=== PATIENT | male | born 1960 | race Caucasian/White ===

== ENCOUNTER 2019-04-14 06:43 | Inpatient (IN) | payer OTHER ==
[~2019-04-14] VITALS: Ht 182.9 cm; Wt 96.2 kg
--- OUTSIDE RECORDS SUMMARY | 2019-04-14 06:46 | XMS REPORT | Clinical Summary ---
Author Author [facility] Organization [facility] Address Unknown Phone Unavailable Care Team Providers Care Preventative Maintenance Technician Name Role Phone Martita Moore MD PCP Allergies No Known Allergies Medications End Date Status Medication Sig Dispensed Refills Start Date Active metFORMIN XR TK 2 TS PO 0 (GLUCOPHAGE-XR) 500 mg 24 BID 7 hr tablet 04/29/2018 Discontinued terbinafine HCl (LamiSIL) TK 1 T PO QD 0 250 mg tablet FOR 90 DAYS 7 04/29/2018 Discontinued clopidogrel (PLAVIX) 75 TK 1 T PO QD 0 mg tablet 7 04/29/2018 Discontinued glimepiride (AMARYL) 2 MG TK 1 T PO QD 0 tablet 7 04/29/2018 Discontinued nabumetone (RELAFEN) 500 TK 1 T PO 1 MG tablet BID WF 7 Active Problems No known active problems Encounters Care Team Description Date Type Specialty Mello Pathak MD Unilateral primary osteoarthritis, right knee (Primary Dx) 04/29/2018 Lab Lab Jaziel Arcos MD Pre-operative cardiovascular examination 04/29/2018 Hospital Radiology Encounter Mello Pathak MD Preop testing (Primary Dx) 04/29/2018 Pre-Admit Pre-Admission Testing Testing Appointment Jaziel Arcos MD Pre-operative cardiovascular examination (Primary Dx) 04/29/2018 Transcribe Access Orders after 04/13/2018 Social History Date Tobacco Use Types Packs/Day Years Used Current Every Day Smoker Cigarettes 0.5 Smokeless Tobacco: Never Used Alcohol Use Drinks/Week oz/Week Comments Yes 8 Cans of 4.8 beer Sex Assigned at Date Recorded Not on file Industry Job Start Date Occupation Not on file Not on file Not on file Travel End Travel History Travel Start No recent travel history available. Last Filed Vital Signs Time Taken Vital Sign Reading 04/29/2018 4:44 PM CDT Blood Pressure 161/82 04/29/2018 4:44 PM CDT Pulse 74 04/29/2018 5:01 PM CDT Temperature 36.1 C (97 F) 04/29/2018 4:44 PM CDT Respiratory Rate 18 04/29/2018 4:44 PM CDT Oxygen Saturation 100% - Inhaled Oxygen - Concentration 04/29/2018 4:44 PM CDT Weight 94.3 kg (208 lb) 04/29/2018 4:44 PM CDT Height 182.9 cm (6') 04/29/2018 4:44 PM CDT Body Mass Index 28.21 Plan of Treatment Health Maintenance Due Date Last Done Comments COLONOSCOPY SCREENING 2009 SHINGLES VACCINES (#1) 2009 INFLUENZA VACCINE 04/29/2019 Procedures Comments Procedure Name Priority Date/Time Associated Diagnosis XR CHEST 2 VW Routine 04/29/2018 Pre-operative 5:09 PM CDT cardiovascular examination MRSA SCREEN CULTURE Routine 04/29/2018 Unilateral primary 5:03 PM CDT osteoarthritis, right knee TYPE AND SCREEN Routine 04/29/2018 Preop testing 4:50 PM CDT ZZESTIMATED GFR Routine 04/29/2018 4:36 PM CDT URINALYSIS SCREEN AND Routine 04/29/2018 Preop testing MICROSCOPY, WITH REFLEX 4:36 PM CDT TO CULTURE PROTHROMBIN TIME WITH INR Routine 04/29/2018 Preop testing 4:36 PM CDT PARTIAL THROMBOPLASTIN Routine 04/29/2018 Preop testing TIME (PTT) 4:36 PM CDT COMPREHENSIVE METABOLIC Routine 04/29/2018 Preop testing PANEL 4:36 PM CDT HC COMPLETE BLD COUNT Routine 04/29/2018 Preop testing W/AUTO DIFF 4:36 PM CDT HEMOGLOBIN A1C Routine 04/29/2018 Preop testing 4:36 PM CDT URINE CULTURE Routine 04/29/2018 4:36 PM CDT after 04/13/2018 Results * XR Chest 2 Vw (04/29/2018 5:09 PM CDT) Specimen Narrative Performed At EXAMINATION:XR CHEST 2 VW [facility] CLINICAL HISTORY:Z01.810 Encounter for preprocedural cardiovascular examination, z01.810 COMPARISON:To a previous examination from 11/06/2016 IMPRESSION: Heart is normal in appearance and the lungs are hyper inflated, and clear. [facility]-[id number] Procedure Note Interface, Radiology Results Incoming - 04/29/2018 5:19 PM CDT EXAMINATION: XR CHEST 2 VW CLINICAL HISTORY: Z01.810 Encounter for preprocedural cardiovascular examination, z01.810 COMPARISON: To a previous examination from 11/06/2016 IMPRESSION: Heart is normal in appearance and the lungs are hyper inflated, and clear. [facility]-[id number] Performing Organization Address City/[facility]/Zipcode Phone Number [facility] [address] [place] [phone] * MRSA screen culture (04/29/2018 5:03 PM CDT) Pathologist [facility] MRSA screen No Methicillin Resistant [facility] DEPARTMENT culture isolate Staphylococcus aureus OF PATHOLOGY isolated. AND GENOMIC Comment: MEDICINE Specimen Information Specimen Source: Nares Specimen Site: Not specified Specimen Nares - Not specified Performing Organization Address City/[facility]/Zipcode Phone Number [facility] [place] [address] PATHOLOGY AND GENOMIC MEDICINE * Type and screen (04/29/2018 4:50 PM CDT) ABO grouping O [facility] DEPARTMENT OF PATHOLOGY AND GENOMIC MEDICINE Rh type POS [facility] DEPARTMENT OF PATHOLOGY AND GENOMIC MEDICINE Antibody screen NEG [facility] DEPARTMENT (gel) OF PATHOLOGY AND GENOMIC MEDICINE Specimen Blood Performing Organization Address City/[facility]/Zipcode Phone Number [facility] [place] [address] PATHOLOGY AND GENOMIC MEDICINE * Urinalysis screen and microscopy, with reflex to culture (04/29/2018 4:36 PM CDT) Specimen site Clean catch [facility] DEPARTMENT OF PATHOLOGY AND GENOMIC MEDICINE Color, UA Straw [facility] DEPARTMENT OF PATHOLOGY AND GENOMIC MEDICINE Appearance, UA Clear [facility] DEPARTMENT OF PATHOLOGY AND GENOMIC MEDICINE Specific 1.032 1.001 - 1.035 [facility] DEPARTMENT gravity, UA OF PATHOLOGY AND GENOMIC MEDICINE pH, UA 6.0 5.0 - 8.5 [facility] DEPARTMENT OF PATHOLOGY AND GENOMIC MEDICINE Protein, UA Negative Negative [facility] DEPARTMENT OF PATHOLOGY AND GENOMIC MEDICINE Glucose, UA 3+ (A) Negative [facility] DEPARTMENT OF PATHOLOGY AND GENOMIC MEDICINE Ketones, UA Negative Negative [facility] DEPARTMENT OF PATHOLOGY AND GENOMIC MEDICINE Bilirubin, UA Negative Negative [facility] DEPARTMENT OF PATHOLOGY AND GENOMIC MEDICINE Blood, UA Negative Negative [facility] DEPARTMENT OF PATHOLOGY AND GENOMIC MEDICINE Nitrite, UA Negative Negative [facility] DEPARTMENT OF PATHOLOGY AND GENOMIC MEDICINE Urobilinogen, <2.0 <2.0 [facility] DEPART[facility] UA OF PATHOLOGY AND GENOMIC MEDICINE Leukocyte Negative Negative [facility] DEPART[facility] esterase, UA OF PATHOLOGY AND GENOMIC MEDICINE Epithelial <1 /HPF [facility] DEPART[facility] cells, UA OF PATHOLOGY AND GENOMIC MEDICINE WBC, UA <1 0 - 1 /HPF [facility] DEPARTMENT OF PATHOLOGY AND GENOMIC MEDICINE RBC, UA 5 0 - 5 /HPF [facility] DEPARTMENT OF PATHOLOGY AND GENOMIC MEDICINE Bacteria, UA Few None seen [facility] DEPARTMENT OF PATHOLOGY AND GENOMIC MEDICINE Yeast, UA None seen [facility] DEPARTMENT OF PATHOLOGY AND GENOMIC MEDICINE Yeast with None seen [facility] DEPARTMENT pseudohyphae, OF PATHOLOGY UA AND GENOMIC MEDICINE Specimen Urine Performing Organization Address City/[facility] Phone Number [address] [address] PATHOLOGY AND GENOMIC MEDICINE * Estimated GFR (04/29/2018 4:36 PM CDT) GFR Non Af Amer >90 mL/min/1.73 m2 [facility] DEPARTMENT OF PATHOLOGY AND GENOMIC MEDICINE GFR Af Amer >90 mL/min/1.73 m2 [facility] DEPARTMENT Comment: OF PATHOLOGY Chronic kidney disease: <60 AND GENOMIC mL/min/1.73m2 MEDICINE Kidney failure: <15 mL/min/1.73m2 The estimated GFR is calculated from the IDMS-traceable Modification of Diet in Renal Disease Equation. The accuracy of the calculation is poor when the creatinine is normal. Calculated values >90 mL/min/1.73m2 are not reported. This equation has not been validated in children (<18 years), women, the elderly (>70 years), or ethnic groups other than Caucasians and Americans. Specimen Plasma specimen Performing Organization Address City/State/Zipcode Phone Number [facility] [address] [place] [address] PATHOLOGY AND GENOMIC MEDICINE * Partial thromboplastin time, activated (04/29/2018 4:36 PM CDT) [facility] PTT 26.4 23.0 - 36.0 sec [facility] DEPARTMENT Comment: OF PATHOLOGY PTT therapeutic range for [facility] GENOMIC unfractionated heparin is MEDICINE 61.0-112.0 seconds which corresponds to Anti-Xa 0.3-0.7 U/ml. Specimen Blood Performing Organization Address City/[facility]/Zipcode Phone Number [facility] [place] [address] PATHOLOGY AND GENOMIC [facility] * Prothrombin time with INR (04/29/2018 4:36 PM CDT) [facility] Prothrombin 12.4 12.0 - 15.0 sec [facility] DEPART[facility] time OF PATHOLOGY AND GENOMIC MEDICINE INR 0.9 [facility] DEPART[facility] Comment: OF PATHOLOGY The International Normalized AND GENOMIC Ratio (INR) is a therapeutic MEDICINE monitoring tool for patients who are stable on oral anticoagulant therapy. An INR of 2.0-3.0 is suggested for deep vein thrombosis/pulmonary embolism. Specimen Blood Performing Organization Address City/[facility] Phone Number [facility] [place] [address] PATHOLOGY AND GENOMIC MEDICINE * CBC with platelet and differential (04/29/2018 4:36 PM CDT) [facility] WBC 6.00 4.50 - 11.00 k/uL [facility] DEPARTMENT OF PATHOLOGY AND GENOMIC MEDICINE RBC 5.15 4.40 - 6.00 m/uL [facility] DEPARTMENT OF PATHOLOGY AND GENOMIC MEDICINE HGB 16.4 14.0 - 18.0 g/dL [facility] DEPARTMENT OF PATHOLOGY AND GENOMIC MEDICINE HCT 50.4 41.0 - 51.0 % [facility] DEPARTMENT OF PATHOLOGY AND GENOMIC MEDICINE MCV 97.9 82.0 - 100.0 fL [facility] DEPARTMENT OF PATHOLOGY AND GENOMIC MEDICINE MCH 31.8 27.0 - 34.0 pg [facility] DEPARTMENT OF PATHOLOGY AND GENOMIC MEDICINE MCHC 32.5 31.0 - 37.0 g/dL [facility] DEPARTMENT OF PATHOLOGY AND GENOMIC MEDICINE RDW - SD 45.8 37.0 - 55.0 fL [facility] DEPARTMENT OF PATHOLOGY AND GENOMIC MEDICINE MPV 11.7 8.8 - 13.2 fL [facility] DEPARTMENT OF PATHOLOGY AND GENOMIC MEDICINE Platelet count 214 150 - 400 k/uL [facility] DEPARTMENT OF PATHOLOGY AND GENOMIC MEDICINE Nucleated RBC 0.00 /100 WBC [facility] DEPARTMENT OF PATHOLOGY AND GENOMIC MEDICINE Neutrophils 55.7 39.0 - 69.0 % [facility] DEPARTMENT OF PATHOLOGY AND GENOMIC MEDICINE Lymphocytes 30.3 25.0 - 45.0 % [facility] DEPARTMENT OF PATHOLOGY AND GENOMIC MEDICINE Monocytes 9.0 0.0 - 10.0 % [facility] DEPARTMENT OF PATHOLOGY AND GENOMIC MEDICINE Eosinophils 4.0 0.0 - 5.0 % [facility] DEPARTMENT OF PATHOLOGY AND GENOMIC MEDICINE Basophils 0.5 0.0 - 1.0 % [facility] DEPARTMENT OF PATHOLOGY AND GENOMIC MEDICINE Immature 0.5Comment: "Immature 0.0 - 1.0 % [facility] DEPARTMENT granulocytes granulocytes" (promyelocytes, OF PATHOLOGY myelocytes, metamyelocytes) AND GENOMIC MEDICINE Specimen Blood Performing Organization Address City/State/Zipcode Phone Number [facility] [place] [address] PATHOLOGY AND GENOMIC MEDICINE * Urine culture (04/29/2018 4:36 PM CDT) Urine culture SEE COMMENTComment: [facility] DEPART[facility] Bacteriuria screen negative. OF PATHOLOGY AND GENOMIC MEDICINE Specimen Performing Organization Address City/State/[place] [address] PATHOLOGY AND GENOMIC MEDICINE * Hemoglobin A1c (04/29/2018 4:36 PM CDT) Hemoglobin A1C 11.4 (H) 4.0 - 5.6 % [facility] DEPART[facility] Comment: OF PATHOLOGY HbA1c cutoffs for diagnosing AND GENOMIC diabetes: MEDICINE 4.0% - 5.6%=normal 5.7% - 6.4%=increased risk for diabetes (prediabetes) >=6.5%=diabetes Goals for glycemic control (ADA 2016) < 7.0%Target for non adults with diabetes. More or less stringent targets may be appropriate for individual patients. <7.5% Target for Children and adolescents with type 1 diabetes. Specimen Blood Performing Organization Address City/State/Zipcode Phone Number [facility] [place] [address] PATHOLOGY AND GENOMIC MEDICINE * Comprehensive metabolic panel (04/29/2018 4:36 PM CDT) Sodium 137 135 - 148 mEq/L [facility] DEPARTMENT OF PATHOLOGY AND GENOMIC MEDICINE Potassium 4.6 3.5 - 5.0 mEq/L [facility] DEPARTMENT OF PATHOLOGY AND GENOMIC MEDICINE Chloride 94 (L) 98 - 112 mEq/L [facility] DEPARTMENT OF PATHOLOGY AND GENOMIC MEDICINE CO2 31 24 - 31 mEq/L [facility] DEPARTMENT OF PATHOLOGY AND GENOMIC MEDICINE Anion gap 12@ANIO 7 - 15 mEq/L [facility] DEPARTMENT OF PATHOLOGY AND GENOMIC MEDICINE BUN 20 6 - 20 mg/dL [facility] DEPARTMENT OF PATHOLOGY AND GENOMIC MEDICINE Creatinine 0.8 0.7 - 1.2 mg/dL [facility] DEPARTMENT OF PATHOLOGY AND GENOMIC MEDICINE Glucose 279 (H) 65 - 99 mg/dL [facility] DEPARTMENT OF PATHOLOGY AND GENOMIC MEDICINE Calcium 10.0 8.3 - 10.2 mg/dL [facility] DEPARTMENT OF PATHOLOGY AND GENOMIC MEDICINE Protein 7.3 6.3 - 8.3 g/dL [facility] DEPART[facility] Comment: OF PATHOLOGY AND GENOMIC 4.6-7.0 g/dL MEDICINE 1 week 4.4-7.6 g/dL 7 months-1year 5.1-7.3 g/dL 1-2 years5.6-7 .5 g/dL >3 years6.0-8 .0 g/dL 18-150 6.3-8.3 g/dL Albumin 3.3 (L) 3.5 - 5.0 g/dL [facility] DEPARTMENT OF PATHOLOGY AND GENOMIC MEDICINE A/G ratio 0.8 0.7 - 3.8 [facility] DEPARTMENT OF PATHOLOGY AND GENOMIC MEDICINE Alkaline 108 40 - 129 U/L [facility] DEPARTMENT phosphatase OF PATHOLOGY AND GENOMIC MEDICINE AST 10 10 - 50 U/L [facility] DEPARTMENT OF PATHOLOGY AND GENOMIC MEDICINE ALT 9 5 - 50 U/L [facility] DEPARTMENT OF PATHOLOGY AND GENOMIC MEDICINE Total bilirubin 0.4 0.0 - 1.2 mg/dL [facility] DEPARTMENT OF PATHOLOGY AND GENOMIC MEDICINE Specimen Plasma specimen Performing Organization Address City/State/Zipcode Phone Number [facility] DEPARTMENT OF [address] [place] [address] PATHOLOGY AND GENOMIC MEDICINE after 04/13/2018 Insurance Type Payer Benefit Subscriber ID Effective Phone Address Plan / Dates Group O ADELAIDA SON OPEN xxxxxxxxxxx [id number] ACCESS/NET resent WORK Advance Directives Patient has advance care planning documents on file. For more information, luca avila contact: Jesus Garcia [address] [place] [address]
[2019-04-14] MEDS ORDERED: SODIUM CHLORIDE 0.9% 1000ML 1,000 ML IV STA (07:05)
[2019-04-14] MEDS ORDERED: ALBUTEROL/IPRATROPIUM 3 ML NEB NEB ONE (07:15)
[2019-04-14] MEDS ORDERED: ONDANSETRON HCL INJ 2MG/ML 2ML 2 MG/ML VIAL IV NR ×2 (07:30→08:00)
[2019-04-14] MEDS ORDERED: ALBUTEROL/IPRATROPIUM 3 ML NEB ONE (07:33)
[2019-04-14] MEDS ORDERED: SODIUM CHLORIDE 0.9% 1000ML 1,000 ML IV SCH (07:35)
[2019-04-14 07:42] LABS: BASOPHILS % 0.3 % (0.0-1.0); EOSINOPHILS # (AUTO) 0.1 (0.0-0.4); EOSINOPHILS % 1.4 % (0.0-6.0); HEMATOCRIT 42.3 % (38.2-49.6); HEMOGLOBIN 14.2 g/dL (14.0-18.0); LYMPHOCYTES # (AUTO) 0.8 (1.0-3.2); LYMPHOCYTES % 11.1 % (18.0-39.1); MEAN CORPUSCULAR HEMOGLOBIN 30.9 pg (28-32); MEAN CORPUSCULAR HGB CONC 33.6 g/dL (31-35); MONOCYTES # (AUTO) 0.5 (0.2-0.8); MONOCYTES % 6.1 % (4.4-11.3); NEUTROPHILS # (AUTO) 5.9 (2.1-6.9); NEUTROPHILS % 79.9 % (38.7-80.0); PLATELET COUNT 259 x10e3/uL (140-360); RED CELL DISTRIBUTION WIDTH 12.9 % (11.7-14.4)
[2019-04-14 07:43] LABS: BILIRUBIN,URINE SMALL (NEGATIVE); CLARITY,URINE CLEAR (CLEAR); COLOR,URINE YELLOW (YELLOW); KETONES,URINE 1+ (NEGATIVE); LEUKOCYTE ESTERASE ,URINE NEGATIVE (NEGATIVE); NITRITE,URINE NEGATIVE (NEGATIVE); PROTEIN,URINE DIPSTICK TRACE (NEGATIVE); URINE UROBILINOGEN 1 mg/dL (0.2 - 1)
[2019-04-14] MEDS ORDERED: DIATRIZOATE MEGL/DIATRIZOA SOD 30 ML BTL PO ONE (07:43)
[2019-04-14 07:45] LABS: INR 1.05; PARTIAL THROMBOPLASTIN TIME 33.9 seconds (23.8-35.5); PROTHROMBIN TIME 14.2 seconds (11.9-14.5)
[2019-04-14 07:54] LABS: ALANINE AMINOTRANSFERASE 22 IU/L (0-55); ALBUMIN 2.7 g/dL (3.5-5.0); ALBUMIN/GLOBULIN RATIO 0.6 (0.8-2.0); ALKALINE PHOSPHATASE 62 IU/L (40-150); ANION GAP 14.8 mmol/L (8-16); BLOOD UREA NITROGEN 29 mg/dL (7-26); BUN/CREATININE RATIO 33 (6-25); CALCIUM 9.1 mg/dL (8.4-10.2); CARBON DIOXIDE 27 mmol/L (22-29); CHLORIDE 94 mmol/L (98-107); CREATININE, SERUM 0.89 mg/dL (0.72-1.25); EST GLOMERULAR FILTRATION RATE > 60 ML/MIN (60-); GLUCOSE 76 mg/dL (74-118); POTASSIUM 3.8 mmol/L (3.5-5.1); SODIUM 132 mmol/L (136-145)
[2019-04-14] MEDS ORDERED: MORPHINE SULFATE INJ 4 MG/ML INJ 1ML IV NR ×2 (08:00→12:15)
--- NOTE | 2019-04-14 08:04 | Diagnostic Imaging Report ---
EXAM: CHEST SINGLE (PORTABLE) DATE: 04/14/2019 7:05 AM INDICATION: Cough, shortness of breath ^ERMD ORDER ^[id number] ^[id number] ^Y COMPARISON: None FINDINGS: Lines and tubes: None Heart size normal. There is patchy opacity at the right lung base, likely representing atelectasis. No pleural effusion or pneumothorax. Upper abdomen unremarkable. No acute bony abnormality. There is marked degenerative change at the right shoulder. IMPRESSION: Patchy airspace opacity at the right lung base which likely represents atelectasis. In the proper clinical setting, early right lower lobe pneumonia is also a consideration Signed by: Dr. Mark Beasley M.D. on 04/14/2019 8:00 AM
[2019-04-14] MEDS ORDERED: METFORMIN HCL500 M1 PO (08:30)
[2019-04-14] MEDS ORDERED: LISINOPRIL10 MG PO (08:30)
[2019-04-14] MEDS ORDERED: TRESIBA SQ (08:30)
[2019-04-14] MEDS ORDERED: JANUVIA100 MG PO (08:30)
[2019-04-14] MEDS ORDERED: GABAPENTIN300 MG PO (08:30)
[2019-04-14 08:34] LABS: WBC,URINE (MAN) 0-5 /HPF (0-5)
[2019-04-14 08:35] LABS: BACTERIA,URINE MODERATE /HPF; EPITHELIAL CELLS,URINE RARE /LPF
[2019-04-14] MEDS ORDERED: METRONIDAZOLE 500MG/NS 100ML 100 ML IV STA (08:36)
[2019-04-14] MEDS ORDERED: LEVOFLOXACIN 500MG/D5W 100ML 100 ML IV STA (08:36)
--- NOTE | 2019-04-14 11:36 | Diagnostic Imaging Report ---
EXAM: CT Abdomen and Pelvis WITH intravenous contrast INDICATION: Abdominal pain COMPARISON: None. TECHNIQUE: Abdomen and pelvis were scanned utilizing a multidetector helical scanner from the lung base to the pubic symphysis after administration of IV contrast. Coronal and sagittal reformations were obtained. Routine protocol was performed. Scan was performed when during portal venous phase. IV CONTRAST: 100 and mL of Isovue-370 ORAL CONTRAST: 400 cc water RADIATION DOSE: Total DLP: (DLP x 0.015 x size factor) mGy*cm Estimated effective dose: (DLP x 0.015 x size factor) mSv Dose modulation, iterative reconstruction, and/or weight based adjustment of the mA/kV was utilized to reduce the radiation dose to as low as reasonably achievable. FINDINGS: LINES AND TUBES: None LOWER THORAX: There is extensive airspace consolidation in the right lower lobe compatible with pneumonia. No pleural effusion. Heart size normal. HEPATOBILIARY: No focal hepatic lesions. Low density adjacent to the falciform ligament compatible with localized fatty infiltration. No biliary ductal dilatation. The gallbladder appears unremarkable. SPLEEN: No splenomegaly. PANCREAS: No focal masses or ductal dilatation. ADRENALS: No adrenal nodules. KIDNEYS/URETERS: No hydronephrosis, stones, or solid mass lesions. PELVIC ORGANS/BLADDER: Urinary bladder has an unremarkable appearance. No discrete abnormal mass or fluid collection in the pelvis. PERITONEUM / RETROPERITONEUM: No free air or fluid. LYMPH NODES: No dominant lymph node mass is seen in the abdomen, retroperitoneum or pelvis. VESSELS: Abdominal aorta is atherosclerotic with scattered calcified plaque extending into the iliac arteries. There is calcified plaque in the proximal SMA producing approximately 30% narrowing. IVC and portal system appear unremarkable. GI TRACT: There are scattered diverticula of the descending colon and sigmoid. No bowel dilatation or evidence for obstruction. The appendix has a normal appearance but extends into a right inguinal hernia. BONES AND SOFT TISSUES: Superficial surrounding soft tissue shows the presence of a right inguinal hernia containing fat. The appendix extends into the hernia. There is no dilatation or inflammatory stranding. Superficial surrounding soft tissue otherwise unremarkable. No acute or suspicious bony lesions. Nonaggressive appearing sclerotic focus above the left acetabulum compatible with bone island. IMPRESSION: 1. Extensive right lower lobe pneumonia. 2. Right ankle hernia containing fat. A portion of the appendix extends into the hernia. There is no dilatation of the appendix or inflammatory stranding. Signed by: Dr. Mark Beasley M.D. on 04/14/2019 11:33 AM
[2019-04-14] MEDS ORDERED: LEVOFLOXACIN 250MG/D5W 50ML 50 ML IV STA (11:58)
[2019-04-14] MEDS ORDERED: DEXTROSE 50% SYRINGE 50 ML IV PRN (12:00)
[2019-04-14] MEDS ORDERED: LEVOFLOXACIN 750MG/D5W 150ML IV SCH (12:00)
[2019-04-14] MEDS: ALBUTEROL SULF 0.083% NEB SOLN 3 ML NEB NEB SCH ×3 (12:00→19:19)
[2019-04-14] MEDS ORDERED: LEVOFLOXACIN 250MG/D5W 50ML 50 ML IV ONE (12:15)
--- OUTSIDE RECORDS SUMMARY | 2019-04-14 12:18 | XMS REPORT | Clinical Summary ---
Author Author [facility] Organization [facility] Address Unknown Phone Unavailable Care Team Providers Care Analytics Architect Name Role Phone Martita Moore MD PCP [...] the lungs are hyper inflated, and clear. [facility]-[id number] Procedure Note Interface, Radiology Results Incoming - 04/29/2018 5:19 PM CDT EXAMINATION: XR CHEST 2 VW CLINICAL HISTORY: Z01.810 Encounter for preprocedural cardiovascular examination, z01.810 COMPARISON: To a previous examination from 11/06/2016 IMPRESSION: Heart is normal in appearance and the lungs are hyper inflated, and clear. [facility]-[id number] Performing Organization Address City/[facility]/Zipcode Phone Number [employer] [address] [place] [phone] * MRSA screen culture (04/29/2018 5:03 PM CDT) Pathologist [facility] MRSA screen No Methicillin Resistant [facility] DEPARTMENT culture isolate Staphylococcus aureus OF PATHOLOGY isolated. AND GENOMIC Comment: MEDICINE Specimen Information Specimen Source: Nares Specimen Site: Not specified Specimen Nares - Not specified Performing Organization Address City/[facility]/Zipcode Phone Number [facility] [place] [address] PATHOLOGY AND GENOMIC MEDICINE * Type and screen (04/29/2018 4:50 PM CDT) ABO grouping O [facility] DEPARTMENT OF PATHOLOGY AND GENOMIC MEDICINE Rh type POS [facility] DEPARTMENT OF PATHOLOGY AND GENOMIC MEDICINE Antibody screen NEG [facility] DEPARTMENT (gel) OF PATHOLOGY AND GENOMIC MEDICINE Specimen Blood Performing Organization Address City/[facility]/Zipcode Phone Number [facility] [place] [address] PATHOLOGY AND GENOMIC MEDICINE * Urinalysis screen and microscopy, with reflex to culture (04/29/2018 4:36 PM CDT) Specimen site Clean catch [facility] DEPARTMENT OF PATHOLOGY AND GENOMIC MEDICINE Color, UA Straw [facility] DEPARTMENT OF PATHOLOGY AND GENOMIC MEDICINE Appearance, UA Clear [facility] DEPARTMENT OF PATHOLOGY AND GENOMIC MEDICINE Specific 1.032 1.001 - 1.035 [facility] DEPARTMENT gravity, UA OF PATHOLOGY AND GENOMIC MEDICINE pH, UA 6.0 5.0 - 8.5 [facility] DEPARTMENT OF PATHOLOGY AND GENOMIC MEDICINE Protein, UA Negative Negative [facility] DEPARTMENT OF PATHOLOGY AND GENOMIC MEDICINE Glucose, UA 3+ (A) Negative [facility] DEPARTMENT OF PATHOLOGY AND GENOMIC MEDICINE Ketones, UA Negative Negative [facility] DEPARTMENT OF PATHOLOGY AND GENOMIC MEDICINE Bilirubin, UA Negative Negative [facility] DEPARTMENT OF PATHOLOGY AND GENOMIC MEDICINE Blood, UA Negative Negative [facility] DEPARTMENT OF PATHOLOGY AND GENOMIC MEDICINE Nitrite, UA Negative Negative [facility] DEPARTMENT OF PATHOLOGY AND GENOMIC MEDICINE Urobilinogen, <2.0 <2.0 [facility] DEPARTMENT UA OF PATHOLOGY AND GENOMIC MEDICINE Leukocyte Negative Negative [facility] DEPARTMENT esterase, UA OF PATHOLOGY AND GENOMIC MEDICINE Epithelial <1 /HPF [facility] DEPARTMENT cells, UA OF PATHOLOGY AND GENOMIC MEDICINE WBC, UA <1 0 - 1 /HPF [facility] DEPARTMENT OF PATHOLOGY AND GENOMIC MEDICINE RBC, UA 5 0 - 5 /HPF [facility] DEPARTMENT OF PATHOLOGY AND GENOMIC MEDICINE Bacteria, UA Few None seen [facility] DEPARTMENT OF PATHOLOGY AND GENOMIC MEDICINE Yeast, UA None seen [facility] DEPARTMENT OF PATHOLOGY AND GENOMIC MEDICINE Yeast with None seen [facility] DEPARTMENT pseudohyphae, OF PATHOLOGY UA AND GENOMIC MEDICINE Specimen Urine Performing Organization Address City/[facility] Phone Number [address] [address] PATHOLOGY AND GENOMIC MEDICINE * Estimated GFR (04/29/2018 4:36 PM CDT) GFR Non Af Amer >90 mL/min/1.73 m2 [facility] DEPARTMENT OF PATHOLOGY AND GENOMIC MEDICINE GFR Af Amer >90 mL/min/1.73 m2 [facility] DEPARTMENT Comment: OF PATHOLOGY Chronic kidney disease: [...] specimen Performing Organization Address City/State/Zipcode Phone Number [facility] [address] [place] [address] PATHOLOGY AND GENOMIC MEDICINE * Partial thromboplastin time, activated (04/29/2018 4:36 PM CDT) [facility] PTT 26.4 23.0 - 36.0 sec [facility] DEPARTMENT Comment: OF PATHOLOGY PTT therapeutic range for [facility] GENOMIC unfractionated heparin is MEDICINE 61.0-112.0 seconds which corresponds to Anti-Xa 0.3-0.7 U/ml. Specimen Blood Performing Organization Address City/[facility]/Zipcode Phone Number [facility] [place] [address] PATHOLOGY AND GENOMIC [facility] * Prothrombin time with INR (04/29/2018 4:36 PM CDT) [facility] Prothrombin 12.4 12.0 - 15.0 sec [facility] DEPARTMENT time OF PATHOLOGY AND GENOMIC MEDICINE INR 0.9 [facility] DEPARTMENT Comment: OF PATHOLOGY The International Normalized AND GENOMIC Ratio (INR) is a therapeutic MEDICINE monitoring tool for patients who are stable on oral anticoagulant therapy. An INR of 2.0-3.0 is suggested for deep vein thrombosis/pulmonary embolism. Specimen Blood Performing Organization Address City/[facility] Phone Number [facility] [place] [address] PATHOLOGY AND GENOMIC MEDICINE * CBC with platelet and differential (04/29/2018 4:36 PM CDT) [facility] WBC 6.00 4.50 - 11.00 k/uL [facility] DEPARTMENT OF PATHOLOGY AND GENOMIC MEDICINE RBC 5.15 4.40 - 6.00 m/uL [facility] DEPARTMENT OF PATHOLOGY AND GENOMIC MEDICINE HGB 16.4 14.0 - 18.0 g/dL [facility] DEPARTMENT OF PATHOLOGY AND GENOMIC MEDICINE HCT 50.4 41.0 - 51.0 % [facility] DEPARTMENT OF PATHOLOGY AND GENOMIC MEDICINE MCV 97.9 82.0 - 100.0 fL [facility] DEPARTMENT OF PATHOLOGY AND GENOMIC MEDICINE MCH 31.8 27.0 - 34.0 pg [facility] DEPARTMENT OF PATHOLOGY AND GENOMIC MEDICINE MCHC 32.5 31.0 - 37.0 g/dL [facility] DEPARTMENT OF PATHOLOGY AND GENOMIC MEDICINE RDW - SD 45.8 37.0 - 55.0 fL [facility] DEPARTMENT OF PATHOLOGY AND GENOMIC MEDICINE MPV 11.7 8.8 - 13.2 fL [facility] DEPARTMENT OF PATHOLOGY AND GENOMIC MEDICINE Platelet count 214 150 - 400 k/uL [facility] DEPARTMENT OF PATHOLOGY AND GENOMIC MEDICINE Nucleated RBC 0.00 /100 WBC [facility] DEPARTMENT OF PATHOLOGY AND GENOMIC MEDICINE Neutrophils 55.7 39.0 - 69.0 % [facility] DEPARTMENT OF PATHOLOGY AND GENOMIC MEDICINE Lymphocytes 30.3 25.0 - 45.0 % [facility] DEPARTMENT OF PATHOLOGY AND GENOMIC MEDICINE Monocytes 9.0 0.0 - 10.0 % [facility] DEPARTMENT OF PATHOLOGY AND GENOMIC MEDICINE Eosinophils 4.0 0.0 - 5.0 % [facility] DEPARTMENT OF PATHOLOGY AND GENOMIC MEDICINE Basophils 0.5 0.0 - 1.0 % [facility] DEPARTMENT OF PATHOLOGY AND GENOMIC MEDICINE Immature 0.5Comment: "Immature 0.0 - 1.0 % [facility] DEPARTMENT granulocytes granulocytes" (promyelocytes, OF PATHOLOGY myelocytes, metamyelocytes) AND GENOMIC MEDICINE Specimen Blood Performing Organization Address City/State/Zipcode Phone Number [facility] [place] [address] PATHOLOGY AND GENOMIC MEDICINE * Urine culture (04/29/2018 4:36 PM CDT) Urine culture SEE COMMENTComment: [facility] DEPARTMENT Bacteriuria screen negative. OF PATHOLOGY AND GENOMIC MEDICINE Specimen Performing Organization Address City/State/[place] [address] PATHOLOGY AND GENOMIC MEDICINE * Hemoglobin A1c (04/29/2018 4:36 PM CDT) Hemoglobin A1C 11.4 (H) 4.0 - 5.6 % [facility] DEPARTMENT Comment: OF PATHOLOGY HbA1c cutoffs for [...] Blood Performing Organization Address City/State/Zipcode Phone Number [facility] [place] [address] PATHOLOGY AND GENOMIC MEDICINE * Comprehensive metabolic panel (04/29/2018 4:36 PM CDT) Sodium 137 135 - 148 mEq/L [facility] DEPARTMENT OF PATHOLOGY AND GENOMIC MEDICINE Potassium 4.6 3.5 - 5.0 mEq/L [facility] DEPARTMENT OF PATHOLOGY AND GENOMIC MEDICINE Chloride 94 (L) 98 - 112 mEq/L [facility] DEPARTMENT OF PATHOLOGY AND GENOMIC MEDICINE CO2 31 24 - 31 mEq/L [facility] DEPARTMENT OF PATHOLOGY AND GENOMIC MEDICINE Anion gap 12@ANIO 7 - 15 mEq/L [facility] DEPARTMENT OF PATHOLOGY AND GENOMIC MEDICINE BUN 20 6 - 20 mg/dL [facility] DEPARTMENT OF PATHOLOGY AND GENOMIC MEDICINE Creatinine 0.8 0.7 - 1.2 mg/dL [facility] DEPARTMENT OF PATHOLOGY AND GENOMIC MEDICINE Glucose 279 (H) 65 - 99 mg/dL [facility] DEPARTMENT OF PATHOLOGY AND GENOMIC MEDICINE Calcium 10.0 8.3 - 10.2 mg/dL [facility] DEPARTMENT OF PATHOLOGY AND GENOMIC MEDICINE Protein 7.3 6.3 - 8.3 g/dL [facility] DEPARTMENT Comment: OF PATHOLOGY AND GENOMIC 4.6-7.0 g/dL MEDICINE 1 week 4.4-7.6 g/dL 7 months-1year 5.1-7.3 g/dL 1-2 years5.6-7 .5 g/dL >3 years6.0-8 .0 g/dL 18-150 6.3-8.3 g/dL Albumin 3.3 (L) 3.5 - 5.0 g/dL [facility] DEPARTMENT OF PATHOLOGY AND GENOMIC MEDICINE A/G ratio 0.8 0.7 - 3.8 [facility] DEPARTMENT OF PATHOLOGY AND GENOMIC MEDICINE Alkaline 108 40 - 129 U/L [facility] DEPARTMENT phosphatase OF PATHOLOGY AND GENOMIC MEDICINE AST 10 10 - 50 U/L [facility] DEPARTMENT OF PATHOLOGY AND GENOMIC MEDICINE ALT 9 5 - 50 U/L [facility] DEPARTMENT OF PATHOLOGY AND GENOMIC MEDICINE Total bilirubin 0.4 0.0 - 1.2 mg/dL [facility] DEPARTMENT OF PATHOLOGY AND GENOMIC MEDICINE Specimen Plasma specimen Performing Organization Address City/State/Zipcode Phone Number [facility] DEPARTMENT OF [address] [place] [address] PATHOLOGY AND GENOMIC MEDICINE after 04/13/2018 Insurance Type Payer Benefit Subscriber ID Effective Phone Address Plan / Dates Group O ADELAIDA SON OPEN xxxxxxxxxxx [id number] ACCESS/NET resent WORK Advance Directives Patient has advance care planning documents on file. For more information, luca avila contact: Jesus Garcia [address] [place] [address]
--- OUTSIDE RECORDS SUMMARY | 2019-04-14 12:18 | XMS REPORT ---
Author Author [facility] Address Unknown Phone Unavailable Care Team Providers Care Inventory And Pricing Associate Name Role Phone FEMI POTTS Unavailable Unavailable Problems This patient has no known problems. Allergies, Adverse Reactions, Alerts This patient has no known allergies or adverse reactions. Medications This patient has no known medications. Results Test Description Test Time Test Comments Text Results Atomic Results Result Comments CT ABDOMEN/PELVIS W 2019-04-14 09:57:00 [facility] [address] [address] Patient Name: OZ PRIETO MR #: [id number] : 1960 Age/Sex: 59/M Req #: [id number] Adm Physician: Ordered by: MICHELLE KWONG OPERATIONS OFFICER Report #: [id number] Location: ER Room/Bed: Procedure: [id number] CT/CT ABDOMEN/PELVIS W Exam Date: 04/14/19 Exam Time: 0850 REPORT STATUS: Signed EXAM: CT Abdomen and Pelvis WITH intravenous contrast INDICATION: Abdominal pain COMPARISON: None. TECHNIQUE: Abdomen and pelvis were scanned utilizing a multidetector helical scanner from the lung base to the pubic symphysis after administration of IV contrast. Coronal and sagittal reformations were obtained. Routine protocol was performed. Scan was performed when during portal venous phase. IV CONTRAST: 100 a nd mL of Isovue-370 ORAL CONTRAST: 400 cc water RADIATION DOSE: Total DLP: (DLP x 0.015 x size factor) mGy*cm Estimated effective dose: (DLP x 0.015 x size factor) mSv Dose modulation, iterative reconstruction, and/or weight based adjustment of the mA/kV was utilized to reduce the radiation dose to as low as reasonably achievable. FINDINGS: LINES AND TUBES: None LOWER THORAX: There is extensive airspace consolidation in the right lower lobe compatible with pneumonia. No pleural effusion. Heart size normal. HEPATOBILIARY: No focal hepatic lesions. Low density adjacent to the falciform ligament compatible with localized fatty infiltration. No biliary ductal dilatation. The gallbladder appears unremarkable. SPLEEN: No splenomegaly. PANCREAS: No focal masses or ductal dilatation. ADRENALS: No adrenal nodules. KIDNEYS/URETERS: No hydronephrosis, stones, or solid mass lesions. PELVIC ORGANS/BLADDER: Urinary bladder has an unremarkable appearance. No discrete abnormal mass or fluid collection in the pelvis. PERITONEUM / RETROPERITONEUM: No free air or fluid. LYMPH NODES: No dominant lymph node mass is seen in the abdomen, retroperitoneum or pelvis. VESSELS: Abdominal aorta is atherosclerotic with scattered calcified plaque extending into the iliac arteries. There is calcified plaque in the proximal SMA producing approximately 30% narrowing. IVC and portal system appear unremarkable. GI TRACT: There are scattered diverticula of the descending colon and sigmoid. No bowel dilatation or eviden ce for obstruction. The appendix has a normal appearance but extends into a right inguinal hernia. BONES AND SOFT TISSUES: Superficial surrounding soft tissue shows the presence of a right inguinal hernia containing fat. The appendix extends into the hernia. There is no dilatation or inflammatory stranding. Superficial surrounding soft tissue otherwise unremarkable. No acute or suspicious bony lesions. Nonaggressive appearing sclerotic focus above the left acetabulum compatible with bone island. IMPRESSION: 1. Extensive right lower lobe pneumonia. 2. Right ankle hernia containing fat. A portion of the appendix extends into the hernia. There is no dilatation of the appendix or inflammatory stranding. Signed by: Dr. Yolanda Mckeon M.D. on 04/14/2019 11:33 AM Dictated By: YOLANDA MCKEON MD [id number] Transcribed By: LUZ MARIA on 04/14/19 [id number] COPY TO: MICHELLE KWONG OPERATIONS OFFICER CHEST SINGLE (PORTABLE) 2019-04-14 07:58:[id number] [address] Patient Name: OZ PRIETO MR #: [id number] : 1960 Age/Sex: 59/M Req #: [id number] Adm Physician: Ordered by: MICHELLE KWONG NP Report #: [id number] Location: ER Room/Bed: Procedure: [id number] DX/CHEST SINGLE (PORTABLE) Exam Date: 04/14/19 Exam Time: 732 REPORT STATUS: Signed EXAM: CHEST SINGLE (PORTABLE) DATE: 04/14/2019 7:05 AM INDICATION: Cough, shortness of breath ERMD ORDER [id number] COMPARISON: None FINDINGS: Lines and tubes: None Heart size normal. There is patchy opacity at the right lung base, likely representing atelectasis. No pleural effusion or pneumothorax. Upper abdomen unremarkable. No acute bony abnormality. There is marked degenerative change at the right shoulder. IMPRESSION: Patchy airspace opacity at the right lung base which likely represents atelectasis. In the proper clinical setting, early right lower lobe pneumonia is also a consideration Signed by: Dr. Yolanda Mckeon M.D. on 04/14/2019 8:00 AM Dictated By: YOLANDA MCKEON MD 9 Transcribed By: LUZ MARIA on 04/14/19799 COPY TO: MICHELLE KWONG NP
[2019-04-14] MEDS ORDERED: LEVOFLOXACIN 750MG/D5W 150ML 150 ML IV SCH (12:45)
[2019-04-14] MEDS ORDERED: SODIUM CHLORIDE 0.9% 50ML 50 ML ONE (13:13)
[2019-04-14] MEDS ORDERED: IOPAMIDOL 370 MG/ML 200 ML INFUS..BTL INJ ONE (13:13)
[2019-04-14 13:59] VITALS: BP 126/74
[2019-04-14] MEDS: METHYLPREDNISOLONE SOD SUCC 125 MG/2ML VIAL IV SCH ×2 (14:56→21:03)
[2019-04-14 15:00] VITALS: BP 126/74
[2019-04-14] MEDS ORDERED: PNEUMOCOCCAL VACCINE POLYVALENT 23 MCG/0.5 ML VIAL IM SCH (15:31)
[2019-04-14] MEDS: INSULIN REGULAR, HUMAN 100 UNIT/1 ML 3ML VIAL SQ SCH ×2 (16:20→20:52)
[2019-04-14] MEDS: HYDROCODONE/APAP 5MG-325MG TAB PO PRN ×2 (17:07→23:57)
[2019-04-14 17:29] VITALS: BP 135/68
[2019-04-14] MEDS: LISINOPRIL 10 MG TAB PO SCH (18:00)
[2019-04-14] MEDS: METOCLOPRAMIDE HCL 10 MG TAB PO SCH ×2 (19:10→20:47)
[2019-04-14] MEDS: PANTOPRAZOLE SOD 40 MG TABEC PO SCH (19:10)
[2019-04-14 20:00] VITALS: BP 113/69
[2019-04-14 20:19] VITALS: BP 113/69
[2019-04-14] MEDS ORDERED: GABAPENTIN 300 MG CAP PO SCH (21:00)
[2019-04-15] VITALS (7 sets, daily range): BP systolic 100–156; BP diastolic 57–91
[2019-04-15] MEDS: ALBUTEROL SULF 0.083% NEB SOLN 3 ML NEB NEB SCH ×7 (00:41→23:10)
[2019-04-15 05:50] LABS: BASOPHILS % 0.3 % (0.0-1.0); HEMATOCRIT 50.6 % (38.2-49.6); HEMOGLOBIN 15.6 g/dL (14.0-18.0); LYMPHOCYTES # (AUTO) 0.4 (1.0-3.2); MEAN CORPUSCULAR HEMOGLOBIN 29.8 pg (28-32); MEAN CORPUSCULAR HGB CONC 30.8 g/dL (31-35); MONOCYTES # (AUTO) 0.1 (0.2-0.8); MONOCYTES % 1.5 % (4.4-11.3); NEUTROPHILS # (AUTO) 3.5 (2.1-6.9); NEUTROPHILS % 87.4 % (38.7-80.0); PLATELET COUNT 200 x10e3/uL (140-360); RED BLOOD COUNT 5.23 x10e6/uL (4.3-5.7); RED CELL DISTRIBUTION WIDTH 12.9 % (11.7-14.4)
[2019-04-15 05:51] LABS: MEAN CORPUSCULAR VOLUME 96.7 fL (81-99)
[2019-04-15] MEDS: METHYLPREDNISOLONE SOD SUCC 125 MG/2ML VIAL IV SCH (06:00)
[2019-04-15 06:13] LABS: ANION GAP 18.2 mmol/L (8-16); BLOOD UREA NITROGEN 26 mg/dL (7-26); BUN/CREATININE RATIO 33 (6-25); CALCIUM 9.5 mg/dL (8.4-10.2); CARBON DIOXIDE 20 mmol/L (22-29); CHLORIDE 98 mmol/L (98-107); CREATININE, SERUM 0.78 mg/dL (0.72-1.25); EST GLOMERULAR FILTRATION RATE > 60 ML/MIN (60-); GLUCOSE 148 mg/dL (74-118); POTASSIUM 4.2 mmol/L (3.5-5.1); SODIUM 132 mmol/L (136-145)
[2019-04-15] MEDS ORDERED: NICOTINE 14 MG/EA PATCH TOP PRN (07:00)
[2019-04-15] MEDS: INSULIN REGULAR, HUMAN 100 UNIT/1 ML 3ML VIAL SQ SCH ×4 (07:30→20:33)
[2019-04-15] MEDS: PANTOPRAZOLE SOD 40 MG TABEC PO SCH ×2 (08:25→16:47)
[2019-04-15] MEDS: METFORMIN HCL 500 MG TAB CR PO SCH ×2 (08:25→16:47)
[2019-04-15] MEDS: GUAIFENESIN 600MG/DEXTROMETHORPHAN 30MG TABSR PO SCH ×2 (08:25→16:48)
[2019-04-15] MEDS: METOCLOPRAMIDE HCL 10 MG TAB PO SCH ×4 (08:25→20:33)
[2019-04-15] MEDS: LISINOPRIL 10 MG TAB PO SCH (08:25)
[2019-04-15] MEDS ORDERED: SITAGLIPTIN 100 MG TAB PO SCH (09:00)
[2019-04-15] MEDS: HYDROCODONE/APAP 5MG-325MG TAB PO PRN ×2 (09:30→20:33)
--- NOTE | 2019-04-15 11:41 | Consultation ---
DATE OF CONSULTATION: Pulmonary Critical Care Consultation CHIEF COMPLAINT: Cough and phlegm production. HISTORY OF PRESENT ILLNESS: The patient is a 59-year-old man. He reports increased congestion and cough for 5-7 days. He notes some fever and some mild dyspnea. He does not complain of chest pain. The patient also notes a 50-60 pound weight loss over the past 6-12 months. He has not been trying to lose weight and is unsure as to why this has happened. PAST SURGICAL HISTORY: 1. Status post back surgery. 2. Status post right knee surgery. 3. Colonoscopy 10 years ago that showed three polyps. PAST MEDICAL HISTORY: 1. Hyperlipidemia. 2. Chronic back pain. SOCIAL HISTORY: The patient is a smoker. He does not use alcohol. ALLERGIES: THERE ARE NO KNOWN DRUG ALLERGIES. FAMILY HISTORY: Significant for hypertension as well as heart disease. REVIEW OF SYSTEMS: The patient is afebrile, although he did have fevers at home. He has no headache. He has no neck pain. He is not complaining of sore throat. He does not complain of swollen glands. He is not complaining of chest pain. He does note cough and increased congestion. He has no abdominal pain. There is no nausea or vomiting. He has some chronic back pain. He has no focal neurological abnormalities. He does note some nausea and vomiting. He has mild abdominal pain. He has some pain in the right leg. He has no focal neurological complaints. He has no skin rashes. PHYSICAL EXAMINATION: VITAL SIGNS: The patient is afebrile now. The blood pressure is 121/83, saturation is 92% on room air. HEENT: Shows no facial swelling or erythema. CARDIAC: Reveals a regular rate and rhythm with a normal S1 and S2. LUNGS: Auscultation of lungs reveals decreased breath sounds at the right base. There are some rhonchi. ABDOMEN: Soft and nontender. There is no rebound or guarding. EXTREMITIES: There is no leg edema or calf tenderness. There is no cyanosis clubbing. SKIN: Shows no rashes. NEUROLOGICAL: Shows no focal abnormalities. LABORATORY DATA: White blood cell count is 4 and the hemoglobin is 15.6. The platelet count is 200. The BUN to creatinine ratio is normal. The blood sugar is 150-200. The carbon dioxide is 20 and the sodium is 132. RADIOGRAPHIC DATA: Chest x-ray shows right basal infiltrate. CT scan of the abdomen and pelvis shows a right lower lobe infiltrate as well as a right inguinal hernia. IMPRESSION: 1. Right lower lobe pneumonia with sepsis, present on admission. 2. Right inguinal hernia. 3. Hypertension. 4. Unexplained weight loss. 5. Mild hyperglycemia. PLAN: 1. Continue current antibiotics. 2. Evaluation for possible weight loss. 3. Consider for CT scan of the chest. 4. Taper corticosteroids. Tip Singh MD [facility]/MODL /[id number]
[2019-04-15] MEDS: METHYLPREDNISOLONE SOD SUCC 40 MG/ML VIAL 1ML IV SCH ×2 (11:45→20:33)
[2019-04-15] MEDS ORDERED: LEVOFLOXACIN 750MG/D5W 150ML 150 ML IV SCH (12:45)
[2019-04-15] MEDS ORDERED: GABAPENTIN 300 MG CAP PO SCH (21:00)
[2019-04-16] VITALS: BP 100/59
[2019-04-16] MEDS: ALBUTEROL SULF 0.083% NEB SOLN 3 ML NEB NEB SCH (03:05)
[2019-04-16 05:00] VITALS: BP 130/60
[2019-04-16 05:41] LABS: BASOPHILS % 0.1 % (0.0-1.0); HEMATOCRIT 42.7 % (38.2-49.6); HEMOGLOBIN 14.3 g/dL (14.0-18.0); LYMPHOCYTES # (AUTO) 0.5 (1.0-3.2); LYMPHOCYTES % 4.8 % (18.0-39.1); MEAN CORPUSCULAR HEMOGLOBIN 30.6 pg (28-32); MEAN CORPUSCULAR HGB CONC 33.5 g/dL (31-35); MONOCYTES # (AUTO) 0.5 (0.2-0.8); MONOCYTES % 4.1 % (4.4-11.3); NEUTROPHILS # (AUTO) 9.8 (2.1-6.9); NEUTROPHILS % 89.9 % (38.7-80.0); PLATELET COUNT 290 x10e3/uL (140-360); RED BLOOD COUNT 4.67 x10e6/uL (4.3-5.7)
[2019-04-16 05:44] LABS: MEAN CORPUSCULAR VOLUME 91.4 fL (81-99)
[2019-04-16] MEDS ORDERED: MUCINEX DM ER1 EACH PO (05:52)
[2019-04-16] MEDS ORDERED: LEVAQUIN PO (05:52)
[2019-04-16] MEDS ORDERED: PREDNISONE10 MG PO (05:52)
[2019-04-16 06:05] LABS: B-TYPE NATRIURETIC PEPTIDE2 66.3 pg/mL (0-100)
[2019-04-16 06:10] LABS: BLOOD UREA NITROGEN 31 mg/dL (7-26); BUN/CREATININE RATIO 35 (6-25); CALCIUM 9.3 mg/dL (8.4-10.2); CARBON DIOXIDE 26 mmol/L (22-29); CHLORIDE 100 mmol/L (98-107); CREATININE, SERUM 0.88 mg/dL (0.72-1.25); EST GLOMERULAR FILTRATION RATE > 60 ML/MIN (60-); GLUCOSE 174 mg/dL (74-118); MAGNESIUM 2.5 MG/DL (1.3-2.1); SODIUM 136 mmol/L (136-145)
[2019-04-16 06:19] LABS: LYMPHOCYTES % (MANUAL) 8 % (19-48); MONOCYTES % (MANUAL) 4 % (3.4-9.0); NEUTROPHILS % (MANUAL) 88 % (40-74)
[2019-04-16 06:20] LABS: ANISOCYTOSIS SLIGHT; RBC MORPHOLOGY COMMENT ABNORMAL
[2019-04-16 06:21] LABS: FREE T4 (FREE THYROXINE) 1.28 ng/dL (0.8-1.8); PLATELET ESTIMATE ADEQUATE; PLATELET MORPHOLOGY COMMENT NORMAL; THYROID STIMULATING HORMONE 1.683 uIU/mL (0.350-4.940)
[2019-04-16] MEDS ORDERED: PNEUMOCOCCAL VACCINE POLYVALENT 23 MCG/0.5 ML VIAL IM ONE (07:00)
--- NOTE | 2019-04-17 04:40 | Discharge Summary ---
ADMISSION DIAGNOSES: Gastritis, gastroparesis, right lower lobe pneumonia, chronic obstructive pulmonary disease without exacerbation, hypertension, type 2 diabetes. DISCHARGE DIAGNOSES: Gastritis, gastroparesis, right lower lobe pneumonia, chronic obstructive pulmonary disease without exacerbation, hypertension, type 2 diabetes, rule out urinary tract infection, rule out bacteremia. HISTORY: The patient has a history of COPD, hypertension, type 2 diabetes, and neuropathy. SURGICAL HISTORY: Back surgery, knee surgery. FAMILY HISTORY: Noncontributory. SOCIAL HISTORY: The patient admits to smoking daily and drinking about 1 to 2 beers a day. HOSPITAL COURSE: A 59-year-old male with nausea, vomiting, diarrhea, loss of appetite, and generalized abdominal pain for the last 4 days, admits to the ER. On admission, chest x-ray showed patchy airspace opacity in the right lung base, which likely represents atelectasis or right lower lobe pneumonia. CT of the abdomen showed extensive right lower lobe pneumonia, right abdominal hernia containing fat. Urine culture negative. Blood culture negative. The patient was started on Zithromax, Rocephin, which was switched to Levaquin. After a few days of IV antibiotics, the patient is feeling much better. He complains of losing weight slowly over the last 6 to 10 months. He will follow up with his primary home care attendant regarding weight loss once his illness is resolved. Vital signs stable, the patient afebrile. The patient understands discharge instructions and agrees to plan. The patient was given a prescription for Mucinex, Levaquin, and prednisone taper. Dictated by Tejal Hawk NP MD [facility]/MOD[facility] /[id number]
== END 2019-04-16 07:00 | disposition home or self-care (01) | DRG 73 ==
LOC: ER 06:43 → ERHOLD 12:13 → MED/SURG2 13:15
PROVIDERS: ADMIT Internal Medicine; ATTEND Internal Medicine
DX: E11.43 Type 2 diabetes mellitus with diabetic autonomic (poly)neuropathy (principal); J18.9 Pneumonia, unspecified organism; N39.0 Urinary tract infection, site not specified; J44.9 Chronic obstructive pulmonary disease, unspecified; I10 Essential (primary) hypertension; E11.40 Type 2 diabetes mellitus with diabetic neuropathy, unspecified; Z79.4 Long term (current) use of insulin; K31.84 Gastroparesis; K29.70 Gastritis, unspecified, without bleeding; K40.90 Unilateral inguinal hernia, without obstruction or gangrene, not specified as recurrent; E11.65 Type 2 diabetes mellitus with hyperglycemia; R63.4 Abnormal weight loss; Z68.28 Body mass index [BMI] 28.0-28.9, adult
CPT/HCPCS: 36415; 71045; 74177; 80048; 80053; 81001; 82150; 82550; 82553; 82948; 83036; 83690; 83735; 83880; 84439; 84443; 84484; 85025; 85610; 85730; 87040; 87086; 90732; 93005; 94640; 99284; J1956; J2270; J2405; J2920; J2930; J7030; Q9967

== ENCOUNTER 2020-03-14 08:20 | Inpatient (IN) | payer OTHER ==
[~2020-03-14] VITALS: Ht 182.9 cm; Wt 103.4 kg
[~2020-03-14 08:20] MED LIST: GABAPENTIN300 MG PO; JANUVIA100 MG PO; LEVAQUIN PO; LISINOPRIL10 MG PO; METFORMIN HCL500 M1 PO; MUCINEX DM ER1 EACH PO; PREDNISONE10 MG PO; TRESIBA SQ
[2020-03-14 08:57] LABS: BASOPHILS % 0.3 % (0.0-1.0); EOSINOPHILS % 0.1 % (0.0-6.0); HEMATOCRIT 39.7 % (38.2-49.6); HEMOGLOBIN 12.6 g/dL (14.0-18.0); LYMPHOCYTES # (AUTO) 0.9 (1.0-3.2); LYMPHOCYTES % 7.3 % (18.0-39.1); MEAN CORPUSCULAR HEMOGLOBIN 30.4 pg (28-32); MEAN CORPUSCULAR HGB CONC 31.7 g/dL (31-35); MEAN CORPUSCULAR VOLUME 95.9 fL (81-99); MONOCYTES # (AUTO) 1.1 (0.2-0.8); MONOCYTES % 8.9 % (4.4-11.3); NEUTROPHILS # (AUTO) 9.7 (2.1-6.9); NEUTROPHILS % 82.5 % (38.7-80.0); PLATELET COUNT 200 x10e3/uL (140-360); RED BLOOD COUNT 4.14 x10e6/uL (4.3-5.7)
[2020-03-14] MEDS ORDERED: AZITHROMYCIN 500MG/NS 250 ML 250 ML IV ONE (09:00)
[2020-03-14 09:15] LABS: ALBUMIN 3.2 g/dL (3.5-5.0); ALBUMIN/GLOBULIN RATIO 0.7 (0.8-2.0); ANION GAP 19.7 mmol/L (8-16); CALCIUM 9.4 mg/dL (8.4-10.2); CREATININE, SERUM 2.16 mg/dL (0.72-1.25); POTASSIUM 4.7 mmol/L (3.5-5.1)
[2020-03-14] MEDS ORDERED: ACETAMINOPHEN 325 MG TAB PO ONE (09:15)
[2020-03-14 09:42] LABS: BILIRUBIN,URINE NEGATIVE (NEGATIVE); CLARITY,URINE CLOUDY (CLEAR); COLOR,URINE YELLOW (YELLOW); KETONES,URINE NEGATIVE (NEGATIVE); LEUKOCYTE ESTERASE ,URINE TRACE (NEGATIVE); NITRITE,URINE NEGATIVE (NEGATIVE); PROTEIN,URINE DIPSTICK 2+ (NEGATIVE); URINE UROBILINOGEN 0.2 mg/dL (0.2 - 1)
[2020-03-14 09:51] LABS: CREATINE KINASE MB 1.1 ng/mL (0-5.0)
[2020-03-14 09:57] LABS: BACTERIA,URINE MANY /HPF; EPITHELIAL CELLS,URINE RARE /LPF; WBC,URINE (MAN) >50 /HPF (0-5)
[2020-03-14] MEDS ORDERED: CEFTRIAXONE SOD 1 GM/NS 50 ML 50 ML IV ONE (10:00)
[2020-03-14] MEDS ORDERED: SODIUM CHLORIDE 0.9% 1000ML 1,000 ML IV STA ×3 (10:03→19:22)
--- NOTE | 2020-03-14 10:18 | Emergency Department Note ---
History of Present Illnes History of Present Illness Chief Complaint: Respiratory History of Present Illness This is a 60 year old male arrives to the ED with complaints of cough shortness of breath and subjective fevers. Chief Complaint Comment C/O SOB AND DECREASED APPETITE X 4 DAYS WITH N/V/D DENIES MUSCLE ACHES DENIES SORE THROAT STATES HX OF PNA DENIES CP PT PRESENTS WITH AUDIBLE WHEEZING MD IN ROOM DURING TRIAGE STATES HE TAKES INHALER AT HOME STATES HE STOPPED SMOKING 2 WEEKS AGO BECAUSE HE WAS HAVING A HARD TIME BREATHING Historian: Patient Arrival Mode: Car Onset (how long ago): day(s) Severity: moderate Onset quality: gradual Duration (how long): day(s) Progression: worsening Chronicity: new Associated symptoms: Reports fever/chills, Reports shortness of breath, Reports weakness Past Medical/Family History Physician Review I have reviewed the patient's past medical and family history. Any updates have been documented here. Past Medical History Recent Fever: Yes Clinical Suspicion of Infectio: Yes New/Unexplained Change in Ment: No Past Medical History: Hypertension, Diabetes, CVA, Hyperlipedemia Past Surgical History: Back Surgery Other Surgery: FOOT SX Other Last Tetanus: UTD Any Pre-Existing Lines (PICC,: No Is patient up to date on immun: No Review of Systems Review of Systems Constitutional: Reports fever EENTM: Reports no symptoms Cardiovascular: Reports no symptoms Respiratory: Reports no symptoms, Reports as per HPI, Reports dyspnea, Reports dyspnea on exertion Gastrointestinal: Reports no symptoms Genitourinary: Reports no symptoms Musculoskeletal: Reports no symptoms Integumentary: Reports no symptoms Neurological: Reports no symptoms Psychological: Reports no symptoms Endocrine: Reports no symptoms Hematological/Lymphatic: Reports no symptoms Physical Exam Related Data Allergies: Coded Allergies: No Known Drug Allergies (Verified Allergy, Unknown, 04/14/19) Triage Vital Signs Vital Signs Date Time Temp Pulse Resp B/P (MAP) Pulse Ox O2 Delivery O2 Flow Rate FiO2 03/14/20 08:32 100.4 114 28 121/83 88 Vital signs reviewed: Yes Physical Exam CONSTITUTIONAL Constitutional: Present well-developed, Present well-nourished, Present ill appearing HENT HENT: Present normocephalic, Present atraumatic, Present oropharynx clear/moist, Present nose normal HENT L/R: Present left ext ear normal, Present right ext ear normal EYES Eyes: Reports PERRL, Reports conjunctivae normal NECK Neck: Present ROM normal PULMONARY Pulmonary: Present effort normal, Present respiratory distress CARDIOVASCULAR Cardiovascular: Present regular rhythm, Present heart sounds normal, Present capillary refill normal, Present normal rate GASTROINTESTINAL Abdominal: Present soft, Present nontender, Present bowel sounds normal GENITOURINARY Genitourinary: Present exam deferred SKIN Skin: Present warm, Present dry MUSCULOSKELETAL Musculoskeletal: Present ROM normal NEUROLOGICAL Neurological: Present alert, Present oriented x 3, Present no gross motor or sensory deficits PSYCHOLOGICAL Psychological: Present mood/affect normal, Present judgement normal Results Laboratory Result Diagram: 03/14/20 0837 03/14/20 0837 Laboratory Laboratory Tests Test 03/14/20 08:37 White Blood Count 11.74 x10e3/uL (4.8-10.8) Red Blood Count 4.14 x10e6/uL (4.3-5.7) Hemoglobin 12.6 g/dL (14.0-18.0) Hematocrit 39.7 % (38.2-49.6) Mean Corpuscular Volume 95.9 fL (81-99) Mean Corpuscular Hemoglobin 30.4 pg (28-32) Mean Corpuscular Hemoglobin Concent 31.7 g/dL (31-35) Red Cell Distribution Width 15.0 % (11.7-14.4) Platelet Count 200 x10e3/uL (140-360) Neutrophils (%) (Auto) 82.5 % (38.7-80.0) Lymphocytes (%) (Auto) 7.3 % (18.0-39.1) Monocytes (%) (Auto) 8.9 % (4.4-11.3) Eosinophils (%) (Auto) 0.1 % (0.0-6.0) Basophils (%) (Auto) 0.3 % (0.0-1.0) Neutrophils # (Auto) 9.7 (2.1-6.9) Lymphocytes # (Auto) 0.9 (1.0-3.2) Monocytes # (Auto) 1.1 (0.2-0.8) Eosinophils # (Auto) 0.0 (0.0-0.4) Basophils # (Auto) 0.0 (0.0-0.1) Absolute Immature Granulocyte (auto 0.10 x10e3/uL (0-0.1) Sodium Level 134 mmol/L (136-145) Potassium Level 4.7 mmol/L (3.5-5.1) Chloride Level 99 mmol/L (98-107) Carbon Dioxide Level 20 mmol/L (22-29) Anion Gap 19.7 mmol/L (8-16) Blood Urea Nitrogen 43 mg/dL (7-26) Creatinine 2.16 mg/dL (0.72-1.25) Estimat Glomerular Filtration Rate 31 ML/MIN (60-) BUN/Creatinine Ratio 20 (6-25) Glucose Level 203 mg/dL (74-118) Calcium Level 9.4 mg/dL (8.4-10.2) Total Bilirubin 0.9 mg/dL (0.2-1.2) Aspartate Amino Transf (AST/SGOT) 31 IU/L (5-34) Alanine Aminotransferase (ALT/SGPT) 24 IU/L (0-55) Alkaline Phosphatase 81 IU/L (40-150) Creatine Kinase 213 IU/L (30-200) Total Protein 7.8 g/dL (6.5-8.1) Albumin 3.2 g/dL (3.5-5.0) Globulin 4.6 g/dL (2.3-3.5) Albumin/Globulin Ratio 0.7 (0.8-2.0) Imaging Imaging results reviewed: Yes Procedures 12 Lead ECG Interpretation ECG Interpretation : ECG: ECG 1 Logistics Director: Interpreted by ED physician Prior ECG tracings: reviewed Rhythm: sinus rhythm QRS axis: normal T wave inversion: all Clinical Impression: abnormal ECG Assessment & Plan Medical Decision Making MDM Severe Sepsis Time: 955 1. Source (time: 0832 Suspected pulmonary on arrival) 2. SIRS (time: 0832 ) heart rate 114, respiratory rate 28 3. Organ Dysfunction (time: 956) creatinine 2.16 Interventions: Blood cultures collected collected a 59 Lactic acid collected Broad Spectrum antibiotics given Lactic acid #1: 1.8 (time resulted) Patient is a cold with PU I and therefore SEP-1 guidelines will be deviated from in the setting of a viral infection. Patient's chest x-ray does not show pneumonia and while patient was empirically covered there is no documented pneumonia on chest x-ray- at time of admission there is no BACTERIAL cause of infection and severe sepsis may be viral in origin. Assessment & Plan Final Impression: (1) Acute respiratory distress (2) COPD exacerbation Depart Disposition: ADMITTED Last Vital Signs Date Time Temp Pulse Resp B/P (MAP) Pulse Ox O2 Delivery O2 Flow Rate FiO2 03/14/20 08:59 114 29 125/74 96 03/14/20 08:32 100.4 Home Meds Active Scripts Guaifenesin/Dextromethorphan (MUCINEX DM ER 600-30 MG TABLET) 1 Each Tab.er.12h, 1 EACH PO BID PRN for CONGESTION, #20 Prov:HARISH PAIGE NP 04/16/19 Reported Medications Lisinopril (LISINOPRIL) 10 Mg Tablet, 10 MG PO DAILY 04/14/19 Gabapentin (GABAPENTIN) 300 Mg Capsule, 300 MG PO TID 04/14/19 [Tresiba] No Conflict Check, 20 U SQ HS 04/14/19 Metformin Hcl (METFORMIN HCL ER) 500 Mg Tab.er.24h, 500 MG PO BID 04/14/19 Sitagliptin Phosphate (JANUVIA) 100 Mg Tablet, 100 MG PO QAM 04/14/19 Discontinued Scripts Prednisone (PREDNISONE) 10 Mg Tab, 10 MG PO UD for 13 Days, TAB TAKE 20MG PO BID X3 DAYS THEN TAKE 20MG PO DAILY X3 DAYS THEN TAKE 10MG PO DAILY X3 DAYS THEN TAKE 5MG PO DAILY X4 DAYS THEN STOP Prov:HARISH PAIGE NP 04/16/19 [Levaquin] No Conflict Check, 750 MG PO DAILY for 2 Days Prov:HARISH PAIGE NP 04/16/19 Medications in the ED Ceftriaxone Sodium 50 ml @ 100 mls/hr ONCE ONCE IV ; Start 03/14/20 at 10:00; Stop 03/14/20 at 10:29 Azithromycin 250 ml @ 200 mls/hr ONCE ONCE IV ; Start 03/14/20 at 09:00; Stop 03/14/20 at 10:14 Acetaminophen 975 mg ONCE ONCE PO ; Start 03/14/20 at 09:15; Stop 03/14/20 at 09:17; Status BEAU SWANSON DO Mar 14, 2020 10:01
[2020-03-14] MEDS ORDERED: ACETAMINOPHEN 325 MG TAB ONE (10:19)
--- NOTE | 2020-03-14 11:15 | NUR ---
consult [id number]
--- NOTE | 2020-03-14 11:39 | Diagnostic Imaging Report ---
TECHNIQUE: Frontal view of the chest. INDICATION: 60-year-old man with cough and fever. COMPARISON: Chest radiograph 04/14/2019. FINDINGS: LINES/TUBES: None. LUNGS: The lungs are well inflated. No consolidation or pulmonary edema. PLEURA: No pneumothorax or significant pleural effusion. HEART AND MEDIASTINUM: The cardiomediastinal silhouette is within normal limits. SOFT TISSUES AND BONES: Degenerative changes of the right glenohumeral joint with unchanged calcification adjacent to the right humeral neck. Soft tissues are unremarkable. IMPRESSION: No acute cardiopulmonary abnormalities. Signed by: Gui Richardson MD on 03/14/2020 11:35 AM
[2020-03-14 14:24] LABS: ABG HCO3 22 mmol/L (22-26); ABG PCO2 44 mmHg (35-45); ABG PO2 131 mmHg (80-105)
[2020-03-14] MEDS ORDERED: ALBUTEROL/IPRATROPIUM 3 ML NEB NEB PRN (15:00)
[2020-03-14] MEDS ORDERED: METHYLPREDNISOLONE SOD SUCC 125 MG/2ML VIAL IV ONE (15:00)
[2020-03-14] MEDS ORDERED: DEXTROSE 50% SYRINGE 50 ML IV PRN (16:30)
[2020-03-14] MEDS ORDERED: AZITHROMYCIN 500MG/NS 250 ML 250 ML IV SCH (16:30)
[2020-03-14] MEDS ORDERED: VANCOMYCIN 1GM/NS 250 ML 250 ML IV ONE (16:30)
--- NOTE | 2020-03-14 16:38 | NUR ---
Received patient from the ER via wheelchair. Pt is alert, pt is SOB and has audible wheezing. no signs of respiratory distress. oxygen set at 3L via NC. pt oriented to room, call light placed within reach and instructed to call RN for help
[2020-03-14] MEDS ORDERED: SODIUM CHLORIDE 0.9% 250ML 250 ML ONE (16:49)
[2020-03-14] MEDS: ALBUTEROL/IPRATROPIUM 3 ML NEB NEB PRN ×2 (17:00→20:30)
[2020-03-14] MEDS: CEFEPIME 1GM/NS 0.9% 50 ML 50 ML IV SCH (17:02)
[2020-03-14 17:11] VITALS: BP 135/81
[2020-03-14] MEDS: INSULIN REGULAR, HUMAN 100 UNIT/1 ML 3ML VIAL SQ SCH ×2 (17:45→20:42)
--- NOTE | 2020-03-14 18:45 | NUR ---
DISCUSSED WITH DR. HINOJOSA, PER DR. CARR ELEVATED LACTIC ACID SECONDARY TO NON-INFECTIONS ETIOLGY RELATED TO COPD EXACERBATION AND RESULT OF INCREASE WORK OF BREATHING. CXR SHOWS NO PNEUMONIA AND THERE IS NO OTHER BACTERIAL CAUSE CONCERNING FOR SEPTIC SHOCK. LACTIC ACID WAS REVIEWED AND INTERPRETED BY BEAU CARR DO. PER DR CARR, EXCLUDES CRITERIA FOR SEPTIC SHOCK DUE TO BEING NON INFECTIOUS SOURCE.
--- NOTE | 2020-03-14 19:19 | NUR ---
SPOKE WITH ROLANDA RICHARD CONCERNING PATIENT'S LACTIC ACID OF 4.3. NEW ORDERS GIVEN. PAGED MD AYERS AND WILL PAGE MD NOGUERA.
[2020-03-14] MEDS ORDERED: ACETAMINOPHEN 325 MG TAB PO PRN (19:45)
[2020-03-14 20:00] VITALS: BP 111/68
[2020-03-14 20:15] VITALS: BP 111/68
--- NOTE | 2020-03-14 20:15 | Consultation ---
DATE OF CONSULTATION: Pulmonary Critical Care Consultation CHIEF COMPLAINT: Congestion, cough, and fevers for 3 days. HISTORY OF PRESENT ILLNESS: The patient is a 60-year-old man. He has a history of prior smoking and some COPD. He uses an inhaler at home. He was hospitalized at [facility] in March of last year for pneumonia. He now complains of congestion and cough for several days. He notes some wheezing and dyspnea. He does not complain of chest pain. He is not complaining of nausea or vomiting. PAST SURGICAL HISTORY: 1. Status post back surgery. 2. Status post right knee surgery. 3. History of prior colonoscopy with polyps. PAST MEDICAL HISTORY: 1. COPD. 2. Chronic back pain. 3. Hyperlipidemia. SOCIAL HISTORY: The patient is a former smoker. He does not use alcohol. ALLERGIES: NO KNOWN DRUG ALLERGIES. FAMILY HISTORY: Family history is significant for hypertension as well as heart disease. REVIEW OF SYSTEMS: He reports some fever. He has no chest pain. He does not complain of headache or neck pain. He does note dyspnea and cough. He has some congestion. He has no abdominal pain. He has no nausea or vomiting. He has no leg edema. PHYSICAL EXAMINATION: VITAL SIGNS: The patient is afebrile. The blood pressure is 104/62 and saturation is 99%. HEENT: Shows no facial swelling or erythema. CARDIAC: Reveals regular rate and rhythm with normal S1 and S2. LUNGS: Auscultation of lungs reveals rhonchorous breath sounds bilaterally. There is no wheezing. ABDOMEN: Soft and nontender. There is no rebound or guarding. EXTREMITIES: Shows no leg edema or calf tenderness. There is no cyanosis or clubbing. SKIN: Shows no rashes. NEUROLOGICAL: Shows no focal abnormalities. LABORATORY DATA: White blood cell count is 11.7 and hemoglobin is 12.6. The platelet count is 200. The BUN to creatinine ratio is 43 to 2.16. CO2 is 20 and sodium is 134. Urinalysis shows greater than 50 white blood cells. RADIOGRAPHIC DATA: Chest x-ray shows no active disease. IMPRESSION: 1. Chronic obstructive pulmonary disease with acute exacerbation. 2. Urinary tract infection with sepsis, present on admission. 3. Acute kidney injury. 4. Diabetes. 5. Hypertension. PLAN: 1. Intravenous fluids. 2. Antibiotics. 3. Panculture the patient. 4. Nephrology consultation. 5. Solu-Medrol. 6. Bronchodilators. 7. Repeat chest x-ray tomorrow. MD NATASHA Glass/LISA /[id number]
--- NOTE | 2020-03-14 20:26 | Consultation ---
DATE OF CONSULTATION: HISTORY OF PRESENT ILLNESS: Mr. Dorsey is very pleasant 60-year-old white male, who comes in to the emergency room with cough, shortness of breath, and fever. The patient had loss of appetite for 4 days. He is just not feeling well. The patient was admitted since we were in mid of COVID-19, he has been evaluated, test was still pending. LABORATORY DATA: Sodium 134, potassium 4.7. Creatinine 2.16. His lactic acid 1.7. AST and ALT within normal limits. His white count 11, hemoglobin 12, and hematocrit of 39. MEDICATIONS: He received acetaminophen, azithromycin, Rocephin. IMAGING: Chest x-ray showed no acute finding. PHYSICAL EXAMINATION: GENERAL: He is currently alert and oriented. VITAL SIGNS: Stable, afebrile. HEENT: He is not icteric. NECK: Supple. CHEST: Clear. HEART: S1, S2. No murmurs. ABDOMEN: Soft. Bowel sounds present. No tenderness. EXTREMITIES: No edema. SKIN: No rash. IMPRESSION: 1. Feeling feverish, leukocytosis, concerned about infection. 2. Chronic kidney disease on acute kidney injury. 3. Agree with blood cultures and urine cultures. 4. Agree with Rocephin and azithromycin for the time being. 5. His chest x-ray does not indicate pneumonia and he is not hypoxemic, which is reassuring. We will follow. MD MARTINE Almeida/LISA /[id number]
[2020-03-14] MEDS: METHYLPREDNISOLONE SOD SUCC 40 MG/ML VIAL 1ML IV SCH (20:41)
[2020-03-14] MEDS: GABAPENTIN 100 MG CAP PO SCH (20:41)
--- NOTE | 2020-03-14 20:47 | NUR ---
SPOKE WITH MD NOGUERA CONCERNING IV FLUID AND RATE, NEW ORDERS RECEIVED.
[2020-03-14] MEDS ORDERED: ZOLPIDEM TARTRATE 5 MG TAB PO PRN (21:00)
[2020-03-14] MEDS: SODIUM CHLORIDE 0.9% 1000ML 1,000 ML IV SCH (21:53)
[2020-03-14 21:54] VITALS: BP 104/71
[2020-03-15] VITALS (9 sets, daily range): BP systolic 105–146; BP diastolic 67–87
[2020-03-15] MEDS: ALBUTEROL/IPRATROPIUM 3 ML NEB NEB PRN (00:35)
--- NOTE | 2020-03-15 01:16 | NUR ---
PATIENT HAD EPISODE OF DECREASED RESPONSIVENESS AND AGITATION AFTER RECEIVING NEB TREATMENT. PATIENT SWAYING WHILE SITTING ON BEDSIDE, ASSISTED PATIENT TO LAY BACK IN BED. PERFORMED BRIEF STERNAL RUB, WHICH PATIENT IMMEDIATELY RESPONDED TO. PATIENT WAS AGITATED AND STATED HE FELT LIGHT HEADED. FEVER HAD BROKEN AND PATIENT HAD BEEN SWEATING. ALL VITAL SIGNS WITHIN NORMAL LIMITS, INCLUDING BLOOD SUGAR. PATIENT ASSISTED TO RESTROOM WITH WALKER AND ONE PERSON ASSIST. LINENS CHANGED. THIS NURSE STAYED WITH PATIENT UNTIL HE STATED HE FELT NORMAL AGAIN. NO LIGHTHEADEDNESS REPORTED. RESPONSIVENESS AND AFFECT BACK TO NORMAL. TELE MONITOR PLACED. BED ALARM ACTIVE, PATIENT VERBALIZED HE WOULD NOT GET OUT OF BED WITHOUT CALLING. WILL CONTINUE TO MONITOR CLOSELY.
--- NOTE | 2020-03-15 02:20 | NUR ---
PATIENT RESTING AT THIS TIME. BREATHING EVEN AND NON-LABORED. NO S&S OF DISTRESS NOTED.
[2020-03-15] MEDS: CEFEPIME 1GM/NS 0.9% 50 ML 50 ML IV SCH ×2 (04:39→17:14)
[2020-03-15 06:19] LABS: BASOPHILS % 0.1 % (0.0-1.0); HEMATOCRIT 38.7 % (38.2-49.6); HEMOGLOBIN 11.9 g/dL (14.0-18.0); LYMPHOCYTES # (AUTO) 0.5 (1.0-3.2); LYMPHOCYTES % 5.2 % (18.0-39.1); MEAN CORPUSCULAR HEMOGLOBIN 30.3 pg (28-32); MEAN CORPUSCULAR HGB CONC 30.7 g/dL (31-35); MEAN CORPUSCULAR VOLUME 98.5 fL (81-99); MONOCYTES # (AUTO) 0.2 (0.2-0.8); MONOCYTES % 2.4 % (4.4-11.3); NEUTROPHILS # (AUTO) 8.1 (2.1-6.9); NEUTROPHILS % 91.3 % (38.7-80.0); PLATELET COUNT 173 x10e3/uL (140-360); RED BLOOD COUNT 3.93 x10e6/uL (4.3-5.7); RED CELL DISTRIBUTION WIDTH 15.5 % (11.7-14.4)
[2020-03-15 06:43] LABS: ALANINE AMINOTRANSFERASE 32 IU/L (0-55); ALBUMIN 2.7 g/dL (3.5-5.0); ALKALINE PHOSPHATASE 76 IU/L (40-150); ANION GAP 16.3 mmol/L (8-16); BLOOD UREA NITROGEN 37 mg/dL (7-26); BUN/CREATININE RATIO 31 (6-25); CARBON DIOXIDE 21 mmol/L (22-29); CHLORIDE 105 mmol/L (98-107); CREATININE, SERUM 1.21 mg/dL (0.72-1.25); EST GLOMERULAR FILTRATION RATE > 60 ML/MIN (60-); GLUCOSE 236 mg/dL (74-118); POTASSIUM 5.3 mmol/L (3.5-5.1); SODIUM 137 mmol/L (136-145)
[2020-03-15 06:58] LABS: THYROID STIMULATING HORMONE 0.538 uIU/mL (0.350-4.940)
[2020-03-15 07:04] LABS: ALBUMIN/GLOBULIN RATIO 0.6 (0.8-2.0)
[2020-03-15 07:14] LABS: MAGNESIUM 2.3 MG/DL (1.3-2.1); PHOSPHORUS 3.6 MG/DL (2.3-4.7)
--- NOTE | 2020-03-15 07:20 | NUR ---
PATIENT IS ALERT AND IN STABLE CONDITION WITH NO S/S OF RESPIRATORY DISTRESS. NO PAIN VOICED. IV FLUIDS INFUSING. TELEMETRY APPLIED. HEALING WOUND NOTED UNDER RIGHT EYE- PATIENT STATES IT WAS D/T A FALL SEVERAL MONTHS AGO. BED ALARM APPLIED. CALL LIGHT IS WITHIN REACH, PATIENT INSTRUCTED TO CALL FOR ASSISTANCE NEEDED.
[2020-03-15] MEDS: INSULIN REGULAR, HUMAN 100 UNIT/1 ML 3ML VIAL SQ SCH ×4 (07:30→20:56)
[2020-03-15 08:28] LABS: ANISOCYTOSIS SLIGHT; LYMPHOCYTES % (MANUAL) 5 % (19-48); MONOCYTES % (MANUAL) 1 % (3.4-9.0); NEUTROPHILS % (MANUAL) 94 % (40-74); PLATELET ESTIMATE ADEQUATE; PLATELET MORPHOLOGY COMMENT NORMAL; RBC MORPHOLOGY COMMENT NORMAL
[2020-03-15] MEDS: GABAPENTIN 100 MG CAP PO SCH ×3 (08:56→20:55)
[2020-03-15] MEDS: METHYLPREDNISOLONE SOD SUCC 40 MG/ML VIAL 1ML IV SCH (08:58)
--- NOTE | 2020-03-15 11:16 | Diagnostic Imaging Report ---
HISTORY: ^[id number] ^1044 ^ELEVATED CREATININE COMPARISON: None. TECHNIQUE: Grayscale and color spectral Doppler ultrasound of the kidneys and bladder. FINDINGS: The right kidney measures 10.4 x 5.4 x 4.8 cm. Cortical thickness measures 1.8 cm. No sonographically evident mass or hydronephrosis. Renal artery and vein are patent. The left kidney measures 11.5 x 5.6 x 5.0 cm. Cortical thickness measures 2.2 cm. No sonographically evident mass or hydronephrosis. Renal artery and vein are patent. Bladder: Unremarkable. IMPRESSION : Normal renal ultrasound. Signed by: Jean Carlos Gonzalez MD on 03/15/2020 11:13 AM
--- NOTE | 2020-03-15 12:29 | Progress Note ---
DATE: SUBJECTIVE: The patient is seen and evaluated. Available labs and notes reviewed. Events noted. Discussed with the nurse. The nurse states that the patient was actually sitting at the edge of the bed and leaning forward and sweating last night. The patient was found by the nurse and hard to arouse. Finally, the patient woke up with the hard sternal rub and had a maximum temperature of 101 last night. Sweats and fever resolved since then and no more episodes of sweating. REVIEW OF SYSTEMS: The patient pretty much relayed the same information to me and overall states that he is feeling better and complains that his urine has a very bad smell to it when I asked about dysuria and it hurts a little. This has been going on for a month and he sees his physician as a PCP couple weeks ago and he said he forgot to mention that. PHYSICAL EXAMINATION: VITAL SIGNS: Temperature 97.7 with a maximum temperature of 101 last night at 8 o'clock, pulse 86, respirations 18, and blood pressure 108/76. GENERAL: Alert and oriented, in no acute distress. CV: S1, S2. CHEST: Equal expansion. Clear to auscultation. No acute distress. ABDOMEN: Soft, obese, nontender. Bowel sounds positive. HEENT: Moist. No pallor. No JVD. EXTREMITIES: Moves all. No significant edema. MEDICATIONS: Medication list reviewed. From ID point of view, the patient is on cefepime and Zithromax. LABORATORY STUDIES: White count of 8.85, improved from 11.74; hemoglobin 11.9, platelets 173. Sodium 137, potassium 5.3, creatinine 1.21. SEROLOGY: Coronavirus PCR 03/14/2020, negative. MICROBIOLOGY: Blood culture negative 24 hours. Urine showed more than 100,000 of gram-negative bacilli with identification and sensitivity pending. Chest x-ray 03/14/2020 showed no acute cardiopulmonary abnormalities. The patient had a renal ultrasound today which showed normal renal ultrasound. ASSESSMENT AND PLAN: 1. Fever and sweats. 2. Concern urinary tract infection. 3. Leukocytosis, resolved. 4. Chronic kidney disease with acute kidney injury-creatinine is 1.21. The patient is currently on Rocephin and Zithromax. Chest x-ray; no acute findings. Clinically, no acute distress. Discussed with Dr. Steele. Please refer to chart for more information. Dictated by Bony Garcia PA-C (Al) MD BRIAN Almeida/LISA /[id number]
[2020-03-15] MEDS: SODIUM CHLORIDE 0.9% 1000ML 1,000 ML IV SCH (12:33)
--- NOTE | 2020-03-15 13:15 | Diagnostic Imaging Report ---
TECHNIQUE: Frontal and lateral views of the chest. INDICATION: ^conestion ^[id number] ^1243 COMPARISON: Prior day. IMPRESSION: Lines and hardware: Stable. Heart and mediastinum: Stable. Lungs and pleura: Stable minimal bibasilar hazy airspace opacities. No pleural effusion. No pneumothorax. Soft tissues and bones: No acute abnormality. Signed by: Jean Carlos Gonzalez MD on 03/15/2020 1:11 PM
[2020-03-15] MEDS ORDERED: FUROSEMIDE INJ 10 MG/ML 4 ML VIAL IV ONE (13:45)
--- NOTE | 2020-03-15 15:56 | Consultation ---
DATE OF CONSULTATION: 03/15/2020 Nephrology Consultation Note REASON FOR CONSULTATION: Acute kidney. CHIEF COMPLAINT: Shortness of breath, cough, congestion, and fever. HISTORY OF PRESENT ILLNESS: A 60-year-old male, morbidly obese, history of smoking, COPD, and hyperlipidemia, came into the ED with complaints of cough, congestion, and fevers ongoing for the last 3 days. The patient was evaluated, seem to be dehydrated, and was started on IV fluids. The patient with saline responsive with improvement in creatinine levels. The patient denies any [id number] medications, no herbal supplements, no NSAIDs. Denies any history of kidney stones or any urinary tract infection. The patient was seen and evaluated at bedside on the medical floor. He is currently doing well with no other issues at this time. REVIEW OF SYSTEMS: Pertinent positives: Cough, congestion, and fever. The rest of 14-point review of systems have been reviewed with the patient and are negative. ALLERGIES: NO KNOWN DRUG ALLERGIES. HOME MEDICATIONS: Gabapentin, lisinopril, metformin, Januvia, and Tresiba. PAST MEDICAL HISTORY: Type 2 diabetes, hypertension, hyperlipidemia, COPD, and morbidly obese. PAST SURGICAL HISTORY: Reports none. FAMILY HISTORY: Hypertension and diabetes. SOCIAL HISTORY: No drugs. No alcohol. He still smokes. PHYSICAL EXAMINATION: VITAL SIGNS: Temperature is 96.4, pulse 83, respiratory rate is 18, blood pressure 128/70, and pulse ox 97% on room air. GENERAL: Not in acute distress. Alert and oriented x3. Cooperative on examination. HEENT: Head; normocephalic, atraumatic. Eyes; pupils are equal, round, and reactive to light bilaterally. Extraocular movements intact bilaterally. Throat; no evidence of erythema or exudates in the posterior pharynx. Has poor dentition. NECK: Supple. Good range of motion. PULMONARY: Clear to auscultation bilaterally. No wheezing, no rales, no rhonchi, no crackles appreciated. CARDIOVASCULAR: Positive S1 and S2. No murmurs, rubs, or gallops appreciated. ABDOMEN: Soft, nondistended, and nontender to palpation. Bowel sounds present. MUSCULOSKELETAL: Strength is 5/5 throughout. No evidence of any muscle deficits on examination. No weakness appreciated. NEUROLOGIC: Cranial nerves 2 through 12 grossly intact. No evidence of any neurological deficits on exam. SKIN: Intact. Warm to touch. Good cap refill. PSYCHIATRIC: Normal affect and mood. EXTREMITIES: No edema. Good range of motion throughout. LABORATORY DATA: Show white count 8.8, hemoglobin 11.9, hematocrit is 38.7, and platelets of 173. Chemistry; sodium 137, potassium 5.3, chloride 105, bicarb 21, anion gap of 16, BUN is 37, creatinine is 1.21, and glucose 236. Magnesium is 2.3, phosphorus 3.6, and albumin 2.7. Urinalysis noted, greater than 50 wbc's, 6-10 rbc's, cloudy urine. Serology; coronavirus not detected. MICROBIOLOGY: Urine culture, gram-negative bacilli. Blood cultures, no growth to date. IMAGING STUDIES: Chest x-ray shows no acute cardiopulmonary abnormalities. Renal ultrasound shows normal renal size with right kidney 10.4 cm, left kidney 11.5 cm. Repeat chest x-ray 03/15/2020, still shows no change. IMPRESSION: 1. Acute kidney injury, likely secondary to dehydration. 2. Acute exacerbation of chronic obstructive pulmonary disease. 3. Urinary tract infection. PLAN: At this time from a renal standpoint, his renal function improved with IV fluid hydration. We can go ahead and stop the IV fluids. Potassium is slightly elevated, which we will go ahead and give Lasix 40 mg IV once. A renal ultrasound review shows to be normal. Continue same plan of care and monitor very closely and renally dose all medications. MD SILVANA Briggs/LISA /[id number]
--- NOTE | 2020-03-15 18:56 | Progress Note ---
DATE: SUBJECTIVE: The patient feels better than yesterday. He has less congestion and less dyspnea. PHYSICAL EXAMINATION: VITAL SIGNS: The blood pressure is 128/70 and saturation is 97%. Pulse is 83. HEENT: Shows no facial swelling or erythema. CARDIAC: Reveals regular rate and rhythm with normal S1 and S2. LUNGS: Auscultation of lungs reveals rhonchorous breath sounds bilaterally. There is no wheezing. ABDOMEN: Soft and nontender. There is no rebound or guarding. EXTREMITIES: Shows no leg edema or calf tenderness. There is no cyanosis or clubbing. SKIN: Shows no rashes. NEUROLOGICAL: Shows no focal abnormalities. LABORATORY DATA: BUN to creatinine ratio is 37 to 1.21 and the carbon dioxide is 21. The blood sugar is 246. RADIOGRAPHIC DATA: Chest x-ray shows some bibasilar hazy opacities. MICROBIOLOGICAL DATA: Urine is growing greater than 100,000 gram-negative rods. IMPRESSION: 1. Gram-negative jerrod urinary tract infection with sepsis, present on admission. 2. Community-acquired pneumonia. 3. Chronic obstructive pulmonary disease with acute exacerbation. 4. Acute kidney injury. 5. Diabetes. 6. Hypertension. PLAN: 1. Continue antibiotics. 2. Continue bronchodilators. 3. Continue to monitor and control blood sugars. 4. Continue to monitor renal function. Tip Singh MD [facility]/MODL /[id number]
--- NOTE | 2020-03-15 19:14 | NUR ---
PATIENT IS ALERT AND IN STABLE CONDITION WITH NO S/S OF RESPIRATORY DISTRESS. NO PAIN VOICED. TELEMETRY APPLIED. CALL LIGHT IS WITHIN REACH, PATIENT INSTRUCTED TO CALL FOR ASSISTANCE NEEDED. BEDSIDE SHIFT REPORT GIVEN TO ONCOMING NURSE.
--- NOTE | 2020-03-15 19:30 | NUR ---
patient received awake, alert, lying quietly in bed. no c/o pain noted. pm assessment complete. patient instructed to call for assistance when needed.
[2020-03-15] MEDS ORDERED: ACETAMINOPHEN 325 MG TAB PO PRN (20:15)
[2020-03-15] MEDS ORDERED: CHLORASEPTIC SPRAY 177 ML BTL MM PRN (20:15)
[2020-03-15] MEDS ORDERED: ONDANSETRON HCL INJ 2MG/ML 2ML 2 MG/ML VIAL IV PRN (20:15)
[2020-03-15] MEDS ORDERED: GUAIFENESIN 600MG/DEXTROMETHORPHAN 30MG TABSR PO PRN (20:15)
[2020-03-15] MEDS ORDERED: METOPROLOL TARTRATE INJ 1 MG/ML VIAL IV PRN (20:15)
[2020-03-15] MEDS: FAMOTIDINE 20 MG/2 ML VIAL IV SCH (20:55)
--- NOTE | 2020-03-15 21:00 | NUR ---
iv to right hand d/c'd due to leaking at insertion site. new iv 20 gauge placed to right wrist x 1 stick at this time.
[2020-03-15] MEDS ORDERED: INSULIN REGULAR, HUMAN 100 UNIT/1 ML 3ML VIAL SQ NR (21:30)
[2020-03-16] VITALS: BP 142/57
--- NOTE | 2020-03-16 01:11 | History and Physical ---
CONSULTING PHYSICIANS: 1. Dr. Demarco Steele, with Infectious Disease. 2. Dr. Tip Singh, with Pulmonology. 3. Dr. Gisella Gaytan, with Nephrology. PRIMARY CARE PHYSICIAN: Dr. Massiel Olivarez. CHIEF COMPLAINT: Acute respiratory distress. HISTORY OF PRESENT ILLNESS: The patient is a 60-year-old male with history of COPD, who uses inhaler at home. He was treated for pneumonia in March of 2019 here at [facility]. The patient was admitted via emergency department after having cough and congestion for several days and general malaise. Apparently on Friday, 03/13, he had nausea and vomiting. He vomited 2-3 times and had 2-3 diarrheal stools. Then, on Friday, 03/14, he had two diarrheal stools while still at home. He came into the emergency room for evaluation, was sent to the floor unit at around midnight. He had a syncopal episode while in room 291. He is currently seen in the same room, awake, alert, and alone. PAST MEDICAL HISTORY: Hypertension, diabetes, CVA on April 08, 2004, what he calls "a minor stroke," hyperlipidemia, COPD, pneumonia in March of 2019. He fell 4-5 months ago, sustained a laceration just below his right eye. He does not have history of chronic kidney disease as his GFR was greater than 60 in March of 2019. PAST SURGICAL HISTORY: Back surgery, right knee surgery, right foot surgery, colonoscopies. FAMILY HISTORY: Mother had cancer. She had two MIs while receiving chemo. Father had lymph node cancer with metastasis. SOCIAL HISTORY: Denies history of alcohol or illicit drug use. He stopped smoking about two weeks ago. He was smoking about a pack a day for 40 years. ALLERGIES: NO KNOWN ALLERGIES. HOME MEDICATIONS: 1. Lisinopril. 2. Metformin. 3. Januvia. 4. Tresiba. 5. Gabapentin. 6. Mucinex DM. REVIEW OF SYSTEMS: CONSTITUTIONAL: He had fever of 104 on arrival. He says he has had a decrease in appetite, sore throat, cough with yellow phlegm, shortness of breath, wheezing, congestion, dyspnea, foul odor to his urine for the past 6 months, mild chest pain, 1/10 on a scale of 0-10. Known diabetic. Denies bleeding or bruising. OBJECTIVE: VITAL SIGNS: Temperature 97, heart rate 92, blood pressure 116/70, respirations 20, oxygen saturation 98%. Weight 228 pounds, BMI 30.91. GENERAL: Supine, alert. LUNGS: Diminished, especially in the bases. HEENT: EOMI. NECK: Supple. CARDIOVASCULAR: Regular rate and rhythm. No murmur. ABDOMEN: Bowel sounds positive. Soft, nontender, obese. EXTREMITIES: With no pitting edema. No clubbing, cyanosis, or marked swelling. INTEGUMENTARY: Approximately 1 cm long laceration under the right eye. NEUROLOGICAL: GCS 15. Nonfocal. LABORATORY DATA: On admission, WBCs 11.74, now 8.85, today hemoglobin 11.9, hematocrit 38.7, platelets 173. Sodium 137, potassium 5.3, chloride 105, CO2 21, BUN 37, anion gap 16.3, creatinine 1.21, estimated GFR greater than 60. Yesterday's BUN 43, creatinine 2.16, estimated GFR 31, serum glucose 236. Fingerstick blood glucose level 154. Lactic acid 4.3 yesterday at about 6 p.m. Today, lactic acid 1.8, calcium 9, total bilirubin 0.4, AST 40, ALT 32, alkaline phosphatase 76, total bilirubin 7, albumin 2.7. Urinalysis done yesterday shows cloudy urine, 2+ protein, negative for nitrites, negative for bilirubin, has a trace amount of leukocyte esterase, rbc 6-10, wbc greater than 50, urine bacteria many. On 03/14, coronavirus PCR not detected. Urine culture showed gram-negative bacillus. Blood cultures x2 show no growth after 24 hours. Yesterday, chest x-ray showed no acute cardiopulmonary abnormalities. Lungs well inflated. Today's chest x-ray shows stable, minimal, bibasilar hazy airspace opacities without pneumothorax. Renal ultrasound completed today was normal. Echocardiogram done on 03/14 shows an ejection fraction of 65%. Hemoglobin A1c 7.8%. Most recent fingerstick blood glucose levels 246, 363, 163. Telemetry shows normal sinus rhythm with a heart rate of 86. ASSESSMENT AND PLAN: 1. Severe sepsis. Infectious Disease has been consulted. The patient received azithromycin and Rocephin in the ER. He is currently on azithromycin and cefepime. Follow up on final results of blood culture and urine culture. Monitor lactic acid p.r.n., hydrate well. 2. Status post brief syncope on 03/14, likely due to sepsis. Monitor for any future episodes for now. No neurological signs or symptoms. 3. Acute urinary tract infection, present on admission with gram-negative bacillus. Follow up on final urine culture and sensitivity results. Infectious Disease consulted. Continue antibiotics and hydration. 4. Acute respiratory failure, present on admission due to bibasilar community-acquired pneumonia on admission. Continue antibiotics, DuoNebs, supplemental oxygen p.r.n., Mucinex DM. Pulmonology following. Prednisone 40 mg IV q.12 hours. 5. Nausea, vomiting, and diarrhea on 03/14, likely due to sepsis. Zofran p.r.n. Diarrhea and vomiting have resolved. 6. Chronic obstructive pulmonary disease with acute exacerbation, 40 pack-year history of smoking. Continue DuoNebs. Currently on room air. Monitor pulmonary status. 7. Acute kidney injury with dehydration. Nephrology consulted. Currently, creatinine 1.21. Monitor, rehydrate. 8. Acute hyperkalemia. Potassium level 5.3. Per Nephrology, Lasix 40 mg IV once. 9. Uncontrolled type 2 diabetes mellitus with hemoglobin A1c 7.8%. Continue sliding scale insulin. Monitor fingerstick blood glucose levels. Hold metformin, gabapentin, Januvia due to acute kidney injury. 10. Hypertension. Monitor blood pressure, currently controlled. Lisinopril held for now due to acute kidney injury. 11. Hyperlipidemia. Can be sent home on statin. 12. Mild hypermagnesemia. Magnesium level 2.3. Defer to Nephrology. 13. Status post fall with right suborbital laceration about 4-5 months ago, localized wound care. 14. Obesity with BMI of 30.9. Dietary restrictions. The patient is doing very well overall. Encourage incentive spirometry. Cepacol lozenges for sore throat and likely discharge home in a day or 2. Reassess labs in the morning. Billing code [id number]. Time spent 60 minutes. Dictated by Gabriel Martinez NP MD DANIE BarillasP/MODL /[id number]
[2020-03-16 04:00] VITALS: BP 155/83
[2020-03-16] MEDS: CEFEPIME 1GM/NS 0.9% 50 ML 50 ML IV SCH (04:08)
[2020-03-16 06:08] LABS: BASOPHILS % 0.2 % (0.0-1.0); HEMOGLOBIN 12.5 g/dL (14.0-18.0); LYMPHOCYTES # (AUTO) 0.8 (1.0-3.2); LYMPHOCYTES % 7.1 % (18.0-39.1); MEAN CORPUSCULAR HEMOGLOBIN 30.1 pg (28-32); MEAN CORPUSCULAR HGB CONC 31.3 g/dL (31-35); MEAN CORPUSCULAR VOLUME 96.4 fL (81-99); MONOCYTES # (AUTO) 0.7 (0.2-0.8); MONOCYTES % 5.9 % (4.4-11.3); NEUTROPHILS # (AUTO) 9.5 (2.1-6.9); NEUTROPHILS % 85.7 % (38.7-80.0); PLATELET COUNT 219 x10e3/uL (140-360); RED BLOOD COUNT 4.15 x10e6/uL (4.3-5.7); RED CELL DISTRIBUTION WIDTH 15.4 % (11.7-14.4)
[2020-03-16 06:43] LABS: ALANINE AMINOTRANSFERASE 43 IU/L (0-55); ALBUMIN 2.8 g/dL (3.5-5.0); ALBUMIN/GLOBULIN RATIO 0.6 (0.8-2.0); ALKALINE PHOSPHATASE 76 IU/L (40-150); ANION GAP 14.7 mmol/L (8-16); BLOOD UREA NITROGEN 40 mg/dL (7-26); BUN/CREATININE RATIO 43 (6-25); CALCIUM 9.1 mg/dL (8.4-10.2); CARBON DIOXIDE 26 mmol/L (22-29); CHLORIDE 104 mmol/L (98-107); CREATININE, SERUM 0.93 mg/dL (0.72-1.25); EST GLOMERULAR FILTRATION RATE > 60 ML/MIN (60-); GLUCOSE 116 mg/dL (74-118); MAGNESIUM 2.2 MG/DL (1.3-2.1); POTASSIUM 4.7 mmol/L (3.5-5.1); SODIUM 140 mmol/L (136-145)
[2020-03-16] MEDS: ALBUTEROL/IPRATROPIUM 3 ML NEB NEB SCH ×2 (07:00→13:00)
[2020-03-16] MEDS: INSULIN REGULAR, HUMAN 100 UNIT/1 ML 3ML VIAL SQ SCH ×2 (07:30→11:30)
--- NOTE | 2020-03-16 07:35 | NUR ---
PATIENT IS AWAKE AND IN STABLE CONDITION WITH NO S/S OF RESPIRATORY DISTRESS. NO PAIN VOICED. IF ANTIBIOTIC INFUSING. TELEMETRY APPLIED. CALL LIGHT IS WITHIN REACH, PATIENT INSTRUCTED TO CALL FOR ASSISTANCE NEEDED.
[2020-03-16 07:54] VITALS: BP 142/85
[2020-03-16] MEDS: FAMOTIDINE 20 MG/2 ML VIAL IV SCH (09:11)
[2020-03-16] MEDS: GABAPENTIN 100 MG CAP PO SCH (09:11)
[2020-03-16 09:23] VITALS: BP 142/85
[2020-03-16 11:19] VITALS: BP 137/87
[2020-03-16] MEDS ORDERED: CEFDINIR300 MG PO (11:26)
[2020-03-16] MEDS ORDERED: PREDNISONE20 MG PO (11:27)
[2020-03-16] MEDS ORDERED: PROAIR HFA INH8.5 GM INH (11:32)
[2020-03-16] MEDS ORDERED: ONDANSETRON HCL 4 MG ORAL DISINTEGRATING TAB PO PRN (12:30)
--- NOTE | 2020-03-16 13:35 | Progress Note ---
DATE: SUBJECTIVE: The patient is seen and evaluated. Discussed with Dr. Steele. Discussed with the attending nurse practitioner, Ms. Ann. REVIEW OF SYSTEMS: No nausea, vomiting, fever, chills, chest pain, shortness of breath, headache, rash, dysuria, or polyuria. MEDICATIONS: Reviewed. From ID point of view, the patient is on cefepime. LABORATORY STUDIES: White count of 11.11, hemoglobin 12.5 with a platelet of 219. Sodium 140, potassium 4.7, and creatinine 0.93. Serology: Coronavirus PCR not detected on 03/14/2020. MICROBIOLOGY: Blood cultures negative 48 hours. Urine culture is Klebsiella and it is pansensitive except to ampicillin and intermediate to nitrofurantoin. PHYSICAL EXAMINATION: VITAL SIGNS: Temperature 97.6, pulse is 80, respirations 18, and blood pressure 137/87. GENERAL: Alert and oriented, no acute distress. CV: S1-S2. CHEST: Equal expansion. Clear to auscultation. No acute distress. ABDOMEN: Soft. Nontender. No distention. HEENT: Moist. No pallor. No JVD. EXTREMITIES: Moves all. No edema. ASSESSMENT AND PLAN: 1. Possible urinary tract infection. 2. Possible pneumonia. 3. Fever and cough, resolved. 4. Blood cultures negative. 5. Urine is Klebsiella pneumoniae pansensitive as mentioned above. Discharge plan is in progress, home with p.o. antibiotics. Please refer to chart. Dictated by Bony Garcia PA-C (Al) Demarco Steele MD /MODL /[id number]
--- NOTE | 2020-03-16 14:05 | Progress Note ---
DATE: 03/16/2020 Nephrology Progress Note SUBJECTIVE: The patient doing well today with no complaints. He is being possibly discharged today. PHYSICAL EXAMINATION: VITAL SIGNS: Temperature 97.6, pulse 80, respirations is 18, blood pressure 137/87, and pulse ox 97% on room air. GENERAL: Not in acute distress. Alert and oriented x3. Cooperative on examination. HEENT: Head; normocephalic, atraumatic. Eyes; pupils are equal, round, and reactive to light bilaterally. Extraocular movements intact bilaterally. Throat; no evidence of erythema or exudates in the posterior pharynx. Has poor dentition. NECK: Supple. Good range of motion. PULMONARY: Clear to auscultation bilaterally. No wheezing, no rales, no rhonchi, no crackles appreciated. CARDIOVASCULAR: Positive S1 and S2. No murmurs, rubs, or gallops appreciated. ABDOMEN: Soft, nondistended, and nontender to palpation. Bowel sounds present. MUSCULOSKELETAL: Strength is 5/5 throughout. No evidence of any muscle deficits on examination. No weakness appreciated. NEUROLOGIC: No evidence of any neurological deficits on exam. Alert and oriented x3. SKIN: Intact. Warm to touch. Good cap refill. PSYCHIATRIC: Normal affect and mood. EXTREMITIES: No edema. Good range of motion throughout. LABORATORY DATA: Show white count 11, hemoglobin 12.5, hematocrit is 40, and platelets of 219. Chemistry; sodium 140, potassium 4.7, chloride 104, bicarb 26, anion gap of 14, BUN is 40, creatinine is 0.93, and calcium 9.1. Coronavirus PCR was negative. IMPRESSION: 1. Acute kidney injury secondary to dehydration. 2. Acute exacerbation of chronic obstructive pulmonary disease. 3. Urinary tract infection. PLAN: From a renal standpoint, he is going to be discharged. Repeat chemistries in the morning time. His labs are stable. In the event of any issues, he was advised to come back to the ED for further evaluation. MD SILVANA Briggs/LISA /[id number]
--- NOTE | 2020-03-16 14:18 | NUR ---
PATIENT DISCHARGE HOME- PATIENT OFF THE UNIT AT 1413 PER WHEELCHAIR ACCOMPANIED BY STAFF MEMBER TO THE FRONT LOBBY. PATIENT IS IN STABLE CONDITION WITH NO S/S OF RESPIRATORY DISTRESS. NO PAIN VOICED. IV REMOVED WITH TIP INTACT. DISCHARGE TEACHING, INSTRUCTIONS, AND MEDICATIONS GIVEN TO THE PATIENT.
--- NOTE | 2020-03-16 22:16 | Discharge Summary ---
ADMISSION DIAGNOSES: Urinary tract infection with severe sepsis, present on admission; acute respiratory distress due to chronic obstructive pulmonary disease exacerbation; chronic obstructive pulmonary disease exacerbation; acute kidney injury; hyperkalemia; type 2 diabetes; hypertension; hyperlipidemia; hypermagnesemia; status post fall with right suborbital laceration 4 to 5 months ago; obesity with a BMI of 30.9. DISCHARGE DIAGNOSES: Urinary tract infection with severe sepsis, present on admission; acute respiratory distress due to chronic obstructive pulmonary disease exacerbation; chronic obstructive pulmonary disease exacerbation; acute kidney injury; hyperkalemia; type 2 diabetes; hypertension; hyperlipidemia; hypermagnesemia; status post fall with right suborbital laceration 4 to 5 months ago; obesity with a BMI of 30.9; Klebsiella pneumoniae urinary tract infection, present on admission; rule out bacteremia; rule out pneumonia; rule out coronavirus disease 2018. HISTORY: Hypertension, diabetes, CVA, hyperlipidemia, COPD, pneumonia. SURGICAL HISTORY: Back surgery, right knee surgery, right foot surgery. FAMILY HISTORY: The patient's mother had cancer as well as his father. The patient's mother also had heart attack. SOCIAL HISTORY: The patient was smoking about a pack of cigarettes a day for 40 years. He stopped smoking about 2 weeks ago. HOSPITAL COURSE: A 60-year-old male with history of COPD, uses inhaler at home, was admitted for having a cough and congestion for several days with general malaise. He also complained of nausea and vomiting with diarrhea. On admission, chest x-ray showed no acute abnormalities. COVID was negative. Blood cultures were negative. Urine culture came back positive for Klebsiella pneumoniae. The patient was started on IV steroids and IV antibiotics for urine infection and COPD exacerbation. Pulmonology was consulted. The patient had acute kidney injury, so Nephrology was consulted. The patient had a renal ultrasound, which was negative and renal function returned to normal. The patient will discharge home with new prescriptions for Omnicef for 5 days, albuterol inhaler p.r.n., and prednisone taper dose. The patient will follow up with primary care in 1 to [address] Singh as discussed. The patient understands instructions and agrees to plan. Vital signs stable, the patient is afebrile. Dictated by Tejal Hawk, ROLANDA Ubaldo W Killam, MD SHARON/MODL /[id number]
--- OUTSIDE RECORDS SUMMARY | 2020-04-27 19:41 | XMS REPORT | Clinical Summary ---
Author Author [facility] Address Unknown Phone Unavailable Care Team Providers Care Pay Clerk Name Role Phone Massiel Olivarez DIGITAL ANALYTICS MANAGER PCP Allergies No Known Allergies Medications End Date Status Medication Sig Dispensed Refills Start Date Active metFORMIN XR TK 2 TS PO 0 (GLUCOPHAGE-XR) 500 mg 24 BID 7 hr tablet Active gabapentin (NEURONTIN) Take 300 mg 0 300 mg capsule by mouth 3 (three) times a day. Active atorvastatin (LIPITOR) 20 Take 20 mg by 0 MG tablet mouth daily. Default OP ins Active SITagliptin (JANUVIA) 100 Take 100 mg 0 MG tablet by mouth daily. Active lisinopril (PRINIVIL) 10 Take 10 mg by 0 mg tablet mouth daily. Active empagliflozin (JARDIANCE) Take 10 mg by 0 10 mg tablet tablet mouth daily. Active insulin degludec (TRESIBA Inject 20 0 U-100 INSULIN SUBQ) Units under the skin. 08/20/2019 aspirin (ECOTRIN) 325 MG Take 1 tablet 60 tablet 0 enteric coated tablet (325 mg 9 total) by mouth 2 (two) times a day for 30 days. 08/20/2019 promethazine (PHENERGAN) Take 1 tablet 30 tablet 0 25 MG tablet (25 mg total) 9 by mouth every 6 (six) hours as needed for nausea for up to 30 days. 07/31/2019 HYDROcodone-acetaminophen Take 1 tablet 30 tablet 0 (NORCO) 10-325 mg per by mouth 9 tabletIndications: acute every 6 (six) pain hours as needed for moderate pain for up to 10 days .Acute Pain. Max Daily Amount: 4 tablets 07/28/2019 cephalexin (KEFLEX) 500 Take 1 14 capsule 0 MG capsule capsule (500 9 mg total) by mouth 2 (two) times a day for 7 days. 08/08/2019 HYDROcodone-acetaminophen Take 2 40 tablet 0 (NORCO) 10-325 mg per tablets by 9 tabletIndications: acute mouth every 6 pain (six) hours as needed for moderate pain for up to 10 days .Acute Pain. Max Daily Amount: 8 tablets 08/26/2019 HYDROcodone-acetaminophen Take 1 tablet 30 tablet 0 (NORCO) 5-325 mg per by mouth 9 tabletIndications: acute every 6 (six) pain hours as needed for moderate pain for up to 10 days .Acute Pain. Max Daily Amount: 4 tablets 10/09/2019 HYDROcodone-acetaminophen Take 1 tablet 30 tablet 0 (NORCO) 5-325 mg per by mouth 0 tabletIndications: every 8 chronic pain (eight) hours as needed for moderate pain for up to 10 days .chronic pain. Max Daily Amount: 3 tablets 10/31/2019 HYDROcodone-acetaminophen Take 1 tablet 40 tablet 0 (NORCO) 10-325 mg per by mouth 0 tabletIndications: every 6 (six) chronic pain hours as needed for moderate pain for up to 10 days .chronic pain. Max Daily Amount: 4 tablets 11/01/2019 HYDROcodone-acetaminophen Take 1 tablet 40 tablet 0 (NORCO) 10-325 mg per by mouth 0 tabletIndications: every 6 (six) chronic pain hours as needed for moderate pain for up to 10 days .chronic pain. Max Daily Amount: 4 tablets 11/29/2019 traMADoL (ULTRAM) 50 mg Take 1 tablet 30 tablet 0 tabletIndications: acute (50 mg total) 0 pain by mouth every 6 (six) hours as needed for moderate pain for up to 10 days .acute pain. 01/23/2020 HYDROcodone-acetaminophen Take 1 tablet 30 tablet 0 ([place]) 7.5-325 mg per by mouth 0 tabletIndications: every 8 chronic pain (eight) hours as needed for moderate pain for up to 10 days .chronic pain. Max Daily Amount: 3 tablets Active Problems Problem Noted Date Charcot's joint of right foot 07/20/2019 Diabetes mellitus with Charcot's joint arthropathy 0 06/16/2019 Encounters Care Team Description Date Type Specialty Anders Alvarado MD Charcot's joint, right ankle and foot (P rimary Dx); Plantar fascial fibromatosis 01/26/2020 Transcribe Physical Therapy Orders Anders Alvarado MD Charcot foot due to diabetes mellitus (H CC) (Primary Dx); External rotation of right foot 01/14/2020 Orders Only Orthopedic Surgery Anders Alvarado MD External rotation of foot, right (Primar y Dx); Charcot's joint of right foot; Plantar fasciitis, right 01/13/2020 Telemedicine Orthopedic Surgery 01/11/2020 Travel [facility] Diabetes mellitus with Charcot's joint a rthropathy (HCC) (Primary Dx); Charcot's joint of right foot 01/11/2020 Orders Only Radiology 12/20/2019 Travel 12/09/2019 Travel [facility] 11/19/2019 Orders Only Orthopedic Surgery Anders Alvarado MD 10/22/2019 Orders Only Orthopedic Surgery Anders Alvarado MD Charcot's joint of right foot (Primary D x); Plantar fasciitis, right 10/21/2019 Office Visit Orthopedic Surgery Anders Alvarado MD 09/29/2019 [facility] Anders Alvarado MD Charcot's joint of right foot (Primary D x); Right foot pain 09/02/2019 Office Visit Orthopedic Surgery Anders Alvarado MD 08/16/2019 Orders Only Orthopedic Surgery Anders Alvarado MD Charcot's joint of right foot (Primary D x) 08/05/2019 Office Visit Orthopedic Surgery Anders Alvarado MD 07/29/2019 Orders Only Orthopedic Surgery Dorothy Jones, ROLANDA 07/22/2019 Telephone Anesthesiology Jessi Reynoso RN 07/21/2019 Patient Quality Outreach Anders Alvarado MD MIDFOOT FUSION, POSSIBLE ARTHRODESIS MIS TARSAL OR TANSMETATARSAL MULTIPUL OR TRANSVERSE 07/20/2019 Surgery Orthopedic Surgery Amol Llamas MD Jatzlau LorieONEIL 07/20/2019 Anesthesia Orthopedic Surgery Event Anders Alvarado MD 07/20/2019 Hospital Transplant - Encounter 07/21/2019 Anders Alvarado MD 07/16/2019 Telephone Orthopedic Surgery Anders Alvarado MD 07/14/2019 Pre-Admit Pre-Admission Testi ng Testing Appointment Massiel Orellana MA 06/09/2019 Telephone Orthopedic Surgery Anders Alvarado MD Diabetes mellitus with Charcot's joint a rthropathy (HCC) (Primary Dx); Right foot pain 06/07/2019 Office Visit Orthopedic Surgery after 03/14/2019 Family History Medical History Relation Name Comments Heart disease Father Marcello dennis Diabetes Maternal Aunt Swallow Cancer Mother Herminia dennis Stroke Mother Herminia dennis Relation Name Status Comments Father Marcello dennis Maternal Aunt Swallow Mother Herminia dennis Social History Date Tobacco Use Types Packs/Day Years Used Current Every Day Smoker Cigarettes 1 45 Smokeless Tobacco: Never Used Drinks/Week oz/Week Comments Alcohol Use 12 Cans of beer 3 Shots of liquor 15.0 Yes Sex Assigned at Date Recorded Not on file Industry Job Start Date Occupation Not on file Not on file Not on file Travel End Travel History Travel Start No recent travel history available. Last Filed Vital Signs Reading Time Taken Comments Vital Sign 146/69 07/21/2019 7:31 AM CDT Blood Pressure 85 07/21/2019 7:31 AM CDT Pulse 36.3 C (97.3 F) 07/21/2019 7:31 AM CDT Temperature 16 07/21/2019 7:31 AM CDT Respiratory Rate 95% 07/21/2019 7:31 AM CDT Oxygen Saturation - - Inhaled Oxygen Concentration 98.1 kg (216 lb 5 oz) 07/20/2019 8:46 AM CDT Weight 182.9 cm (6') 07/20/2019 8:46 AM CDT Height 29.34 07/20/2019 8:46 AM CDT Body Mass Index Plan of Treatment Health Maintenance Due Date Last Done Comments DIABETIC RETINAL EYE EXAM 1959 DIABETIC FOOT EXAM 1969 URINE MICROALBUMIN 1969 COLONOSCOPY SCREENING 2009 SHINGLES VACCINES (#1) 2009 INFLUENZA VACCINE 04/29/2020 Implants Device Identifier Shelf Expiration Date Model / Serial / L ot Implanted Type Area Manufactur er 08/28/2023 [id number] / / [id number] Colag 2 Screw, 4.0 X 34.0 Mm - IPM Right: Foot [id number] [employer] Implanted: Qty: 1 on 07/20/2019 by DEVICES Anders Alvarado MD at [facility] P50 [id number] / / R3con Non-Locking Plate Screw, 4.2 IPM Rig ht: Foot X 24mm - [id number] IMPLANT Implanted: Qty: 1 on 07/20/2019 by Anders Schreiber MD at [facility] P26 [id number] / / LOT NA Joust Beam Cannulated Headless Full IPM Ri ght: Foot Thd 5.0 X 95mm - [id number] IMPLANT Implanted: Qty: 1 on 07/20/2019 by Anders Schreiber MD at [facility] P26 [id number] / / LOT NA Joust Beam Cannulated Headless Full IPM Ri ght: Foot Thd 5.0 X 95mm - [id number] IMPLANT Implanted: Qty: 1 on 07/20/2019 by Anders Schreiber MD at [facility] P99 [id number] / / LOT NA K-Wire Single Ended Trocar Tip IPM Right: Foot Threaded 1.6 X 230mm - [id number] IMPLANT Implanted: Qty: 1 on 07/20/2019 by Anders Schreiber MD at [facility] P99 [id number] / / LOT NA K-Wire Single Ended Trocar Tip IPM Right: Foot Threaded 1.6 X 230mm - [id number] IMPLANT Implanted: Qty: 2 on 07/20/2019 by Anders Schreiber MD at [facility] 08/28/2022 [id number] [id number] / / [id number] Colag Screw, 4.0 X 38.0 Mm - IPM Right: Foot I [id number] [employer] Implanted: Qty: 1 on 07/20/2019 by Anders Schreiber MD at [facility] P06 [id number] / / K-WireGisell Trocar, Smooth, .062x7" IPM Right: Foot [id number] - [id number] [employer] Implanted: Qty: 2 on 07/20/2019 by Anders Schreiber MD at [place] [id number] / / Lag Screw Drill, Cannulated, 2.7 - IPM Right: Foot [id number] [employer] Implanted: Qty: 1 on 07/20/2019 by DEVICES Anders Alvarado MD at [facility] P53 [id number] / / LOT NA Medial Column Charcot Arch Plate, IPM Righ t: Foot Nc-1st Met, 2.0mm Thk, Right, Lg - IMPLANT [id number] DEVICES Implanted: 07/20/2019 at [facility] (Quantity not on file) P50 [id number] / / R3con Locking Plate Screw, 4.2 X IPM Right : Foot 12mm - [id number] IMPLANT Implanted: Qty: 1 on 07/20/2019 by Anders Schreiber MD at [facility] P50 [id number] / / R3con Locking Plate Screw, 4.2 X IPM Right : Foot 18mm - [id number] IMPLANT Implanted: Qty: 3 on 07/20/2019 by Anders Schreiber MD at [facility] P50 [id number] / / R3con Locking Plate Screw, 4.2 X IPM Right : Foot 20mm - [id number] IMPLANT Implanted: Qty: 1 on 07/20/2019 by Anders Schreiber MD at [facility] P50 [id number] / / R3con Locking Plate Screw, 4.2 X IPM Right : Foot 38mm - [id number] IMPLANT Implanted: Qty: 2 on 07/20/2019 by Anders Schreiber MD at [facility] [id number] / / 4.2mm X 40mm Gorilla R3con Locking Ortho Right: Foot PARAGON Plate Screw Scre[employer] Implanted: Qty: 1 on 07/20/2019 by Anders Alvarado MD at [facility] 12/28/2023 [id number] / [id number] / [id number] Graft Bone Actifuse [id number] - Surgical Right: Foot SOSA [id number] - [id number] Implants; BIOSCIENCE Implanted: Qty: 1 on 07/20/2019 by Expanders; Anders Alvarado MD at [facility] Extenders; [facility] Surgical Wires Device Identifier Shelf Expiration Date Model / Serial / L ot Explanted Type Area Manufactur er [id number] / / LOT NA Joust Beam Solid Headless Full Thd IPM Rig ht: Foot 5.0 X 95mm - [id number] IMPLANT Implanted: 07/20/2019 (Quantity not DEVICES on file) Explanted: Qty: 1 on 07/20/2019 at [facility] Procedures Comments Procedure Name Priority Date/Time Associated Diag nosis XR FOOT 3+ VW RIGHT Routine 01/12/2020 Diabetes m ellitus with 8:40 AM CDT Charcot's joint arthropathy (HCC) Charcot's joint of right foot XR FOOT 3+ VW RIGHT Routine 10/21/2019 Charcot's joint of right 8:53 AM [employer] [facility] [facility] foot XR FOOT 3+ VW RIGHT Routine 09/02/2019 Charcot's joint of right 9:28 AM [employer] [facility] foot Right foot pain POC GLUCOSE Routine 07/21/2019 7:28 AM CDT POC GLUCOSE Routine 07/20/2019 9:30 PM CDT POC GLUCOSE Routine 07/20/2019 4:08 PM CDT MA AN ELECTIVE Routine 07/20/2019 SUPRAGLOTTIC AIRWAY 1:16 PM CDT MA AN PERIPHERAL BLOCK Routine 07/20/2019 PROCEDURE FOR PAIN 12:57 PM CDT ANESTHESIA PERIPHERAL Routine 07/20/2019 BLOCK 12:55 PM CDT FUSION, JOINT, ANKLE 07/20/2019 Charcot's joint of ankle, 12:54 PM CDT right Special Needs EXTENDED STAY SUPINE LARGE C-ARM POC GLUCOSE Routine 07/20/2019 9:08 AM CDT POC GLUCOSE Routine 07/20/2019 8:49 AM CDT XR FOOT 3+ VW RIGHT Routine 06/07/2019 Right foot pain 8:50 AM CDT after 03/14/2019 Results * XR Foot 3+ Vw Right (01/12/2020 8:40 AM CDT) Only the most recent of 4 results within the time period is included. Specimen Narrative Performed At [facility] 3 weightbearing views of the right foot demonstrate well-healed midfoot arthrodesis with intact hardware. No evidence of lucency at the fusion sites is seen. Mild persistent forefo ot abduction noted. Good pentecostalism of longitudinal arch height noted. Performing Organization Address [facility] Ph one Number [facility] [address] [place] [address] * POC glucose (07/21/2019 7:28 AM CDT) Only the most recent of 5 results within the time period is included. POC glucose 116 (H) 65 - 99 mg/dL [facility] Comment: [facility] Notified RN HOSPITAL Meter ID: [id number] [employer] Stock Clerk: Mike Ricks Specimen Performing Organization Address City/[facility] Ph one Number [facility] DEPARTMENT OF [address] [place] [address] PATHOLOGY AND GENOMIC MEDICINE [facility] [address] [place] [address] HOSPITAL * Airway (07/20/2019 1:16 PM CDT) Narrative Performed At Jonathan Farooq CRNA 07/20/2019 1: 17 PM Airway Date/Time: 07/20/2019 1:00 PM Performed by: Jonathan Farooq CRNA Authorized by: Amol Llamas M D Location: OR Urgency: Elective Difficult Airway: No Resident/GENERAL ACCOUNTING MANAGER/AA: Jonathan Farooq CRNA Performed by: resident/SISI/AA Preoxygenated with 100% O2: Yes C-spine Precautions Maintained Througho ut: No Mask Ventilation: Not attempted Final Airway Type: Supraglottic airwa y Final LMA: Air - Q LMA Size: 5 Number of Attempts at Approach: 2 Igel insertion with low TV, changed to Air-Q LMA with good TV. Smooth and atraumatic LMA insertion * Peripheral Block (07/20/2019 12:57 PM CDT) Narrative Performed At Amol Llamas MD 1:15 PM Peripheral Block Performed by: Amol Llamas MD Authorized by: Amol Llamas M D Patient Location: Block room Start Time: 07/20/2019 12:18 PM End Time: 07/20/2019 12:20 PM Reason for Block: at surgeon's request, post-op pain management Staff: Anesthesiologist: Amol Llamas MD Performed by: Anesthesiologist Preprocedure: patient identified, IV ch ecked, site and side verified, risks and benefits discussed, procedure verified, surgical consent complete, patient position confirmed, m onitors and equipment checked, pre-op evaluation complete and site mar ked Time Out Performed: 07/20/2019 11:58 AM Peripheral Nerve Block: Patient Position: Pertinent anatomy defined and supine Prep: ChloraPrep and patient draped Monitoring: Blood pressure monitori ng, continuous pulse oximetry and heart rate Block Type: Adductor canal and saphen ous Laterality: Right Injection Technique: Single injection Procedures: ultrasound guided Ultrasound documentation: Images save d on hard disk, images saved on portable media, printed/placed in chart and still images obtained Needle: Needle Type: Pajunk and SonoPlex Needle Gauge: 22 G Needle Length: 8 cm Assessment: Injection Assessment: Visualized ne edle/local anesthetic surrounding nerve, visualized pertinent vascular st ructures and nerves, needle tip visualized at all times during injectio n of medication, no symptoms of intraneural/intravenous injection and i ntermittent aspiration during local anesthetic administration Paresthesia Pain: None Heart Rate Change: No Slow Fractionated Injection: Yes Block outcome: No apparent complica tions, patient comfortable and patient tolerated procedure well Notes: No issues VSS 97% 132/84 88 16 * Peripheral Block (07/20/2019 12:55 PM CDT) Narrative Performed At Amol Llamas MD 12:57 PM Peripheral Block Performed by: Amol Llamas MD Authorized by: Amol Llamas M D Patient Location: Block room Start Time: 07/20/2019 12:09 PM End Time: 07/20/2019 12:16 PM Reason for Block: at surgeon's request, post-op pain management Staff: Anesthesiologist: Amol Llamas MD Performed by: Anesthesiologist Preprocedure: patient identified, IV ch ecked, site and side verified, risks and benefits discussed, procedure verified, surgical consent complete, patient position confirmed, m onitors and equipment checked, pre-op evaluation complete and site mar ked Time Out Performed: 07/20/2019 11:58 AM Peripheral Nerve Block: Patient Position: Left lateral decu bitus and pertinent anatomy defined Prep: ChloraPrep and patient draped Monitoring: Blood pressure monitori ng, continuous pulse oximetry and heart rate Block Type: Popliteal and sciatic Laterality: Right Injection Technique: Catheter inserti on Procedures: ultrasound guided Ultrasound documentation: Images save d on hard disk, images saved on portable media, printed/placed in chart and still images obtained Needle: Needle Type: Pajunk Needle Gauge: 19 G Needle Length: 10 cm Assessment: Injection Assessment: Visualized ne edle/local anesthetic surrounding nerve, visualized pertinent vascular st ructures and nerves, needle tip visualized at all times during injectio n of medication, no symptoms of intraneural/intravenous injection and i ntermittent aspiration during local anesthetic administration Paresthesia Pain: None Heart Rate Change: No Slow Fractionated Injection: Yes Block outcome: No apparent complica tions, patient comfortable and patient tolerated procedure well Notes: VSS No issues after 03/14/2019 Insurance Type Payer Benefit Subscriber ID Effective Phone Address Plan / Dates Group O CIGNA CIGNA xxxxxxxxxxx [id number] [place] [id number] [address] Personal/F Self 1960 [id number] (Home) [place] [address] Advance Directives For more information, please contact: [phone] 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
--- OUTSIDE RECORDS SUMMARY | 2020-04-27 19:41 | XMS REPORT | Continuity of Care Document ---
Author Author [facility] t Organization [facility] Address [address] [place] [address] Phone Unavailable Care Team Providers Care Oil Field Tester Name Role Phone NO, PCP PCP Unavailable AYDE VARNER Attphys Unavailable Gisell Alvarado MD Attphys Medrano, Ashwini Attphys Unavailable Robert FIELD SUPPORT REPRESENTATIVE, Karen De La Cruz Attphys Angeles NARANJO, Jessi Attphys Unavailable Muriel WINKLER, Forrest Carmichael Attphys Lorie Mcgovern APRN Attphys Massiel Orellana MA Attphys Unavailable FEMI POTTS Attphys Unavailable AYDE VARNER Admphys Unavailable ANDERS ALVARADO Admphys Unavailable Payers Payer Name Policy Type Policy Number Effective Date Expiration Date Telma moore CIGNACIGNA LOCAL PLUS/SUREFITxxxxxxxxxxx2014-PresentO xxxxxxxxxxx 2014 00:00:00 Jesus Padilla o [id number] 2014 00:00:00 [facility] Problems Condition Name Condition Details Condition Category Status Onset Date Resolution Date Last Treatment Date Treating Clinician Comments Source Charcot's joint of right foot Charcot's joint of right foot Disease Active 2019-07-20 00:00:00 Jesus Garcia Diabetes mellitus with Charcot's joint arthropathy Janae betes mellitus with Charcot's joint arthropathy Disease Active 2019-06-16 00:00:00 Jesus Garcia Right lower lobe pneumonia Right lower lobe pneumonia Problem Active [facility] Allergies, Adverse Reactions, Alerts Allergy Name Allergy Type Status Severity Reaction(s) Onset Date Inacti ve Date Treating Clinician Comments Source No Known Allergies DA Active U 2016-05-30 00:00:00 [facility] Family History Family Member Diagnosis Comments Start Date Stop Date Source Natural father Heart disease Jesus Garcia Maternal aunt Diabetes [facility] Natural mother Cancer [facility] Natural mother Stroke [facility] Social History Social Habit Start Date Stop Date Quantity Comments Source History of tobacco use Cigarette Smoker Jesus Garcia Sex Assigned At German Garcia Cigarettes smoked current (pack per day) - Reported 00:00:00 2019-10-21 00:00:00 Jesus Garcia Cigarette pack-years 2019-10-21 00:00:00 2019-10-21 00:00:00 Jesus Garcia Alcohol intake 2019-10-21 00:00:00 2019-10-21 00:00:00 Current drinker of alcohol (finding) Jesus Garcia Smoking Status Start Date Stop Date Source Current every day smoker 2019-10-21 00:00:00 German Garcia Medications Ordered Medication Name Filled Medication Name Start Date Stop Da te Current Medication? Ordering Clinician Indication Dosage Frequency Signature (SIG) Comments Components Source HYDROcodone-acetaminophen ([place]) 7.5-325 mg per tablet 2020-01-13 00:00:00 2020-01-23 23:59:00 No chronic pain 1{tbl} Q8H Fadi e 1 tablet by mouth every 8 (eight) hours as needed for moderate pain for up to 10 days .chronic pain. Max Daily Amount: 3 tablets Jesus beverly traMADoL (ULTRAM) 50 mg tablet 2019-11-19 00:00:00 2 23:59:00 No acute pain 50mg Q6H Take 1 tablet (50 mg total) by mouth every 6 (six) hours as needed for moderate pain for up to 10 days .acute pain. Jesus Garcia HYDROcodone-acetaminophen (NOR[place]) 10-325 mg per tablet 2019-10-22 00:00:00 2019-11-01 23:59:00 No chronic pain 1{tbl} Q6H Fadi e 1 tablet by mouth every 6 (six) hours as needed for moderate pain for up to 10 days .chronic pain. Max Daily Amount: 4 tablets Jesus Booker t HYDROcodone-acetaminophen (NORCO) 10-325 mg per tablet 2019-10-21 00:00:00 2019-10-31 23:59:00 No chronic pain 1{tbl} Q6H Fadi e 1 tablet by mouth every 6 (six) hours as needed for moderate pain for up to 10 days .chronic pain. Max Daily Amount: 4 tablets Jesus Booker t HYDROcodone-acetaminophen (NORCO) 5-325 mg per tablet 2019-09-29 00:00:00 2019-10-09 23:59:00 No chronic pain 1{tbl} Q8H Fadi e 1 tablet by mouth every 8 (eight) hours as needed for moderate pain for up to 10 days .chronic pain. Max Daily Amount: 3 tablets Jesus beverly HYDROcodone-acetaminophen (NORCO) 5-325 mg per tablet 2019-08-16 00:00:00 2019-08-26 23:59:00 No acute pain 1{tbl} Q6H Take 1 tablet by mouth every 6 (six) hours as needed for moderate pain for up to 10 days .Acute Pain. Max Daily Amount: 4 tablets Jesus Garcia HYDROcodone-acetaminophen (NORCO) 10-325 mg per tablet 2019-07-29 00:00:00 2019-08-08 23:59:00 No acute pain 2{tbl} Q6H Take 2 tablets by mouth every 6 (six) hours as needed for moderate pain for up to 10 days .Acute Pain. Max Daily Amount: 8 tablets Jesus Garcia gabapentin (NEURONTIN) 300 mg capsule 2019-07-21 11:07:23 Yes 300mg [id number] Take 300 mg by mouth 3 (three) times a day. Jesus Garcia atorvastatin (LIPITOR) 20 MG tablet 2019-07-21 11:07:23 Yes 20mg QD Take 20 mg by mouth daily. Default OP ins German raza Garcia SITagliptin (JANUVIA) 100 MG tablet 2019-07-21 11:07:23 Yes 100mg QD Take 100 mg by mouth daily. Jesus torres lisinopril (PRINIVIL) 10 mg tablet 2019-07-21 11:07:23 Yes 10mg QD Take 10 mg by mouth daily. Jesus Garcia empagliflozin (JARDIANCE) 10 mg tablet tablet 2019-07-21 11:07:2 3 Yes 10mg QD Take 10 mg by mouth daily. Jacqueline Garcia insulin degludec (TRESIBA U-100 INSULIN SUBQ) 2019-07-21 11:07:2 3 Yes 20U Inject 20 Units under the skin. Jesus Garcia aspirin (ECOTRIN) 325 MG enteric coated tablet 2 00:00:00 2019-08-20 23:59:00 No 325mg Q.5D Take 1 tablet (325 mg total) by mouth 2 (two) times a day for 30 days. Jesus Garcia promethazine (PHENERGAN) 25 MG tablet 2019-07-21 00:00 :00 2019-08-20 23:59:00 No 25mg Q6H Take 1 tablet ( 25 mg total) by mouth every 6 (six) hours as needed for nausea for up to 30 days. German Garcia HYDROcodone-acetaminophen (NORCO) 10-325 mg per tablet 2019-07-21 00:00:00 2019-07-31 23:59:00 No acute pain 1{tbl} Q6H Take 1 tablet by mouth every 6 (six) hours as needed for moderate pain for up to 10 days .Acute Pain. Max Daily Amount: 4 tablets Jesus Garcia cephalexin (KEFLEX) 500 MG capsule 2019-07-21 00:00:00 201 06-08-30 23:59:00 No 500mg Q.5D Take 1 capsule ( 500 mg total) by mouth 2 (two) times a day for 7 days. Jesus Garcia Guaifenesin/Dextromethorphan (Mucinex Dm Er 600-30 Mg Tablet) 1 Each Tab.er.12h Guaifenesin/Dextromethorphan (Mucinex Dm Er 600-30 Mg Tablet) 1 Each Tab.er.12h 2019-04-16 00:00:00 Yes Tejal Hawk Nutritional Health Coach 1 Twice A Day as needed for Congestion [facility] Levaquin Levaquin 2019-04-16 00:00:00 Yes Tejal Hawk Nutritional Health Coach 750 Daily [facility] Prednisone 10 Mg Tab Prednisone 10 Mg Tab 2019-04-16 00:00:00 Yes Tejal Hawk Nutritional Health Coach 10 Use As Directed [facility] metFORMIN XR (GLUCOPHAGE-XR) 500 mg 24 hr tablet 2017-06-11 00:00:00 Yes TK 2 TS PO BID [facility] thodist Gabapentin 300 Mg Capsule Gabapentin 300 Mg Capsule Yes 300 Three Times A Day [facility] Lisinopril 10 Mg Tablet Lisinopril 10 Mg Tablet Yes 10 Daily [facility] Metformin Hcl (Metformin Hcl Er) 500 Mg Tab.er.24h Met formin Hcl (Metformin Hcl Er) 500 Mg Tab.er.24h Yes 500 Twice A Day [facility] Sitagliptin Phosphate (Januvia) 100 Mg Tablet Sitaglip tin Phosphate (Januvia) 100 Mg Tablet Yes 100 Every Morning [facility] Tresiba Tresiba Yes 20 Bedtime [facility] Vital Signs Vital Name Observation Time Observation Value Comments Source Systolic blood pressure 2019-07-21 07:31:54 146 mm[Hg] Jesus Garcia Diastolic blood pressure 2019-07-21 07:31:54 69 mm[Hg] Jesus Garcia Heart rate 2019-07-21 07:31:54 85 /min Jesus Garcia Body temperature 2019-07-21 07:31:54 36.28 Genna Tien Garcia Respiratory rate 2019-07-21 07:31:54 16 /min Tien Garcia Oxygen saturation in Arterial blood by Pulse oximetry 2018-09 07:31:54 95 /min Jesus Garcia Body height 2019-07-20 08:46:00 182.9 cm Jesus Garcia Body weight 2019-07-20 08:46:00 98.119 kg Jesus Garcia BMI 2019-07-20 08:46:00 29.34 kg/m2 Jesus Garcia Procedures Procedure Date / Time Performed Performing Clinician Nafisa avila XR FOOT 3+ VW RIGHT 2020-01-12 08:40:02 Anders Alvarado XR FOOT 3+ VW RIGHT 2019-10-21 08:53:24 Anders Alvarado XR FOOT 3+ VW RIGHT 2019-09-02 09:28:24 Anders Alvaradoist POC GLUCOSE 2019-07-21 07:28:00 Anders Alvarado Met hodist POC GLUCOSE 2019-07-20 21:30:00 Anders Alvarado Met hodist POC GLUCOSE 2019-07-20 16:08:00 Anders Alvarado Met mariettaist [place] AN ELECTIVE SUPRAGLOTTIC AIRWAY 2019-07-20 13:16:10 Abdi Farooq NH AN PERIPHERAL BLOCK PROCEDURE FOR PAIN 2019-07-20 12:57:4 2 Amol Llamas ANESTHESIA PERIPHERAL BLOCK 2019-07-20 12:55:58 Amol Llamas FUSION, JOINT, ANKLE 2019-07-20 12:54:00 Anders Alvaradoto n Religious POC GLUCOSE 2019-07-20 09:08:00 Anders Alvarado Met hodist POC GLUCOSE 2019-07-20 08:49:00 Anders Alvarado Met hodist XR FOOT 3+ VW RIGHT 2019-06-07 08:50:13 Anders Alvarado Computed tomography of abdomen and pelvis with contrast 2018 00:00:00 MICHELLE KWONG [facility] Plan of Care Planned Activity Planned Date Details Comments Source Future Scheduled Test 2020-04-29 00:00:00 INFLUENZA VACCINE [code = INFLUENZA VACCINE] [facility] Future Scheduled Test 2009 00:00:00 COLONOSCOPY SCREEN ING [code = COLONOSCOPY SCREENING] [facility] Future Scheduled Test 2009 00:00:00 SHINGLES VACCINES (#1) [code = SHINGLES VACCINES (#1)] [facility] Future Scheduled Test 1969 00:00:00 DIABETIC FOOT EXAM [code = DIABETIC FOOT EXAM] [facility] Future Scheduled Test 1969 00:00:00 URINE MICROALBUMIN [code = URINE MICROALBUMIN] [facility] Future Scheduled Test 1959 00:00:00 DIABETIC RETINAL E YE EXAM [code = DIABETIC RETINAL EYE EXAM] [facility] Encounters Start Date/Time End Date/Time Encounter Type Admission Type Att[facility] Care Department Encounter ID Source 2020-01-13 00:00:00 2020-01-13 00:00:00 Outpatient ANDERS ALVARADO [facility] [id number] Jesus Garcia 2020-01-12 00:00:00 2020-01-12 00:00:00 Outpatient ANDERS ALVARADO [facility] [id number] Jesus Garcia 2019-11-29 00:00:2019-11-29 00:00:00 Outpatient ANDERS ALVARADO [facility] [id number] [facility] 2019-11-26 00:00:00 2019-11-26 00:00:00 Outpatient ANDERS ALVARADO [facility] [id number] [place] [facility] 2019-11-24 00:00:00 2019-11-24 00:00:00 Outpatient ANDERS ALVARADO [facility] [id number] [facility] 2019-07-20 00:00:00 2019-07-21 00:00:00 Outpatient ANDERS ALVARADO [facility] [id number] [facility] 2019-04-14 12:13:00 2019-04-16 07:00:00 Discharged Inpatient 1 FEMI POTTS [facility] [id number] [facility] Results Test Description Test Time Test Comments Results Result Comments Source COMPREHENSIVE METABOLIC PANEL 2020-04-01 10:20:00 Test Item SODIUM (test code = NA) 136 mmol/L 136-145 N POTASSIUM (test code = K) 4.2 mmol/L 3.5-5.1 N CHLORIDE (test code = CL) 101.0 mmol/L 98-107 N CARBON DIOXIDE (test code = CO2) 28.0 mmol/L 21-32 N ANION GAP (test code = GAP) 11.2 10-20 N GLUCOSE (test code = GLU) 236 mg/dL 74-106 H BLOOD UREA NITROGEN (test code = BUN) 9 mg/dL 7-18 N GLOMERULAR FILTRATION RATE (test code = GFR) > 60 mL/min >=60 Estimated GFR by using Modified MDRD formula.Chronic kidney disease is defined as either kidney damageor GFR <60 mL/min/1.73 m2 for >3 months. CREATININE (test code = CREAT) 0.80 mg/dL 0.7-1.3 N BUN/CREATININE RATIO (test code = BUN/CREA) 12.0 10-20 N TOTAL PROTEIN (test code = PROT) 6.6 gram/dL 6.4-8.2 N ALBUMIN (test code = ALB) 2.4 g/dL 3.4-5.0 L GLOBULIN (test code = GLOB) 4.2 gram/dL 2.7-4.2 N ALBUMIN/GLOBULIN RATIO (test code = A/G) 0.6 0.75-1.50 L CALCIUM (test code = CA) 9.0 mg/dL 8.5-10.1 N BILIRUBIN TOTAL (test code = BILT) 0.40 mg/dL 0.0-1.0 N SGOT/AST (test code = AST) 56 IUnit/L 15-37 H SGPT/ALT (test code = ALT) 50 IUnit/L 12-78 N ALKALINE PHOSPHATASE TOTAL (test code = ALKP) 108 IUnit/L 45-117 N Note change in reference range due to change in reagent. [id number] 10:20:00* Test Item Value Reference Range Interpretation Comments MAGNESIUM (test code = MAG) 2.1 mg/dL 1.8-2.4 N CBC W/AUTO [id number] 09:36:00* Test Item Value Reference Range Interpretation Comments WHITE BLOOD CELL (test code = WBC) 6.7 K/mm3 4.5-12.5 N RED BLOOD CELL (test code = RBC) 3.60 mill/mm3 4.0-5.8 L HEMOGLOBIN (test code = HGB) 11.2 gram/dL 13.0-17.5 L HEMATOCRIT (test code = HCT) 35.6 % 42.0-52.0 L MEAN CELL VOLUME (test code = MCV) 98.9 fL 80-98 H MEAN CELL HGB (test code = MCH) 31.1 picogram 27.0-33.0 N MEAN CELL HGB CONCETRATION (test code = MCHC) 31.5 gram/dL 33.0-36. 0 L RED CELL DISTRIBUTION WIDTH (test code = RDW) 14.5 % 11.6-16. 2 N RED CELL DISTRIBUTION WIDTH SD (test code = RDW-SD) 52.9 fL 37 .0-51.0 H PLATELET COUNT (test code = PLT) 220 K/mm3 150-450 N MEAN PLATELET VOLUME (test code = MPV) 11.2 fL 6.7-11.0 H NEUTROPHIL % (test code = NT%) 71.8 % 39.0-69.0 H IMMATURE GRANULOCYTE % (test code = IG%) 0.6 % 0.0-5.0 N LYMPHOCYTE % (test code = LY%) 19.3 % 25.0-55.0 L MONOCYTE % (test code = MO%) 6.1 % 0.0-10.0 N EOSINOPHIL % (test code = EO%) 1.6 % 0.0-5.0 N BASOPHIL % (test code = BA%) 0.6 % 0.0-1.0 N NUCLEATED RBC % (test code = NRBC%) 0.0 % 0-0 N NEUTROPHIL # (test code = NT#) 4.78 K/mm3 1.8-7.7 N IMMATURE GRANULOCYTE # (test code = IG#) 0.04 x10 3/uL 0-0.03 H LYMPHOCYTE # (test code = LY#) 1.29 K/mm3 1.0-5.0 N MONOCYTE # (test code = MO#) 0.41 K/mm3 0-0.8 N EOSINOPHIL # (test code = EO#) 0.11 K/mm3 0.0-0.5 N BASOPHIL # (test code = BA#) 0.04 K/mm3 0.0-0.2 N NUCLEATED RBC # (test code = NRBC#) 0.00 K/mm3 0.0-0.1 N [id number] 07:52:00* Test Item Value Reference Range Interpretation Comments GLUBED (test code = GLUBED) 146 mg/dL 74-106 H Performed by certified washerette machine operator at [facility] [id number] 20:36:00* Test Item Value Reference Range Interpretation Comments GLUBED (test code = GLUBED) 158 mg/dL 74-106 H Performed by certified washerette machine operator at [facility] [id number] 16:45:00* Test Item Value Reference Range Interpretation Comments GLUBED (test code = GLUBED) 146 mg/dL 74-106 H Performed by certified washerette machine operator at [facility] [id number] 12:26:00* Test Item Value Reference Range Interpretation Comments GLUBED (test code = GLUBED) 123 mg/dL 74-106 H Performed by certified washerette machine operator at [facility] [id number] 07:53:00* Test Item Value Reference Range Interpretation Comments GLUBED (test code = GLUBED) 182 mg/dL 74-106 H Performed by certified washerette machine operator at [facility] - CT ABD PELVIS W/O [id number] 22:06:00 Name: OZ PRIETO [facility] : 1960 Age/S: 60 / M [address] [facility] Unit #: [id number] Loc: [place] [address] Phys: Deya Luong MD Acct: [id number] Dis Date: Status: ADM IN PHONE #: [phone] Exam Date: 03/30/20202144 FAX #: [phone] Reason: RULE OUT APPENDICITIS EXAMS: CPT CODE: [id number] CT ABD PELVIS W/O CONT 19037 REASON FOR EXAM: RULE OUT APPENDICITIS EXAM ORDER DATE: 03/30/2020 6:43 PM Ordering M.D.: Deya Luong MD PROCEDURE: Axial CT images were acquired through the abdomen/pelvis at 5 mm intervals. Sagittal and coronal reformatted images were generated. Automated exposure control was utilized for this reduction. Phases of contrast: None COMPARISON: Abdominal ultrasound earlier this afternoon and CT of the abdomen and pelvis March 27, 2020 FINDINGS: The absence of IV contrast limits sensitivity of this exam for the detection of soft tissue pathology Visualized thorax: Mild subsegmental atelectasis versus scarring in the lung bases appears similar to the prior exam. Coronary calcifications are redemonstrated Hepatobiliary system: Grossly normal Pancreas: Grossly normal Spleen: Grossly normal Adrenal glands: Grossly normal Genitourinary system: Previously seen mild right-sided perinephric fat stranding appears to have nearly completely resolved Gastrointestinal tract and appendix: Diverticulosis without diverticulitis of the sigmoid colon is redemonstrated. Heavy colonic stool burden. Stomach and small bowel are gr ossly within normal limits. The appendix () is within puneet l limits Abdominal vascular structures: Atherosclerotic calcificat ions of the abdominal aorta as well as the iliac and mesenteric arteries a re redemonstrated PAGE 1 Signed Report (CONTINUED) Name: OZ PRIETO [facility] Janice jasmine : 1960 Age/S: 60 / M [address] Unit #: [id number] Loc: MICKEY Rodriguez [address] 4 Phys: Deya Luong MD Acct: [id number] Dis Date: Status: ADM IN PHONE #: [phone] Exam Date: 03/30/20202144 FAX #: [phone] Reason: RULE OUT APPENDICITIS EXAMS: CPT CODE: [id number] CT ABD PELVIS W/O CONT 89327 < Continued> Peritoneum and retroperitoneum: No free fluid or free air. No omental or mesenteric masses. No abnormal lymph nodes. Musculoskeletal structures and abdominal wall: Degenerative changes of the spine are again seen IMPRESSION: No signs of appendicitis. Heavy colonic stool burden. Near complete resolution of the right-sided perinephric fat stranding. Correlate with urinalysis for an infectious process. Location: [facility] at 2206 Reported and signed by: Wale Parikh MD CC: Oz Avelar MD; Deya Luong MD Technologist:Nicole Estrada RT(R); AGNIE Schwarz CTDI: DLP: Trnscb Date/Time: 03/30/2020 (2205) [id number].[email or web address].RR31 Orig Print D/T: S: 03/30/2020 (2209) PAGE 2 Signed Report [id number] 20:06:00* Test Item Value Reference Range Interpretation Comments GLUBED (test code = GLUBED) 199 mg/dL 74-106 H Performed by certified washerette machine operator at [facility] BASIC METABOLIC [id number] 16:39:00* Test Item Value Reference Range Interpretation Comments SODIUM (test code = NA) 139 mmol/L 136-145 N POTASSIUM (test code = K) 4.2 mmol/L 3.5-5.1 N CHLORIDE (test code = CL) 106.0 mmol/L 98-107 N CARBON DIOXIDE (test code = CO2) 26.0 mmol/L 21-32 N ANION GAP (test code = GAP) 11.2 10-20 N GLUCOSE (test code = GLU) 154 mg/dL 74-106 H BLOOD UREA NITROGEN (test code = BUN) 13 mg/dL 7-18 N GLOMERULAR FILTRATION RATE (test code = GFR) > 60 mL/min >=60 Estimated GFR by using Modified MDRD formula.Chronic kidney disease is defined as either kidney damageor GFR <60 mL/min/1.73 m2 for >3 months. CREATININE (test code = CREAT) 0.60 mg/dL 0.7-1.3 L BUN/CREATININE RATIO (test code = BUN/CREA) 20.2 10-20 H CALCIUM (test code = CA) 8.3 mg/dL 8.5-10.1 L COMPREHENSIVE METABOLIC [id number] 16:39:00* Test Item Value Reference Range Interpretation Comments TOTAL PROTEIN (test code = PROT) 5.7 gram/dL 6.4-8.2 L ALBUMIN (test code = ALB) 2.2 g/dL 3.4-5.0 L GLOBULIN (test code = GLOB) 3.5 gram/dL 2.7-4.2 N ALBUMIN/GLOBULIN RATIO (test code = A/G) 0.6 0.75-1.50 L BILIRUBIN TOTAL (test code = BILT) 0.30 mg/dL 0.0-1.0 N SGOT/AST (test code = AST) 18 IUnit/L 15-37 N SGPT/ALT (test code = ALT) 23 IUnit/L 12-78 N ALKALINE PHOSPHATASE TOTAL (test code = ALKP) 81 IUnit/L 45-117 N Note change in reference range due to change in reagent. BASIC METABOLIC [id number] 16:30:00* Test Item Value Reference Range Interpretation Comments SODIUM (test code = NA) 139 mmol/L 136-145 N POTASSIUM (test code = K) 4.2 mmol/L 3.5-5.1 N CHLORIDE (test code = CL) 106.0 mmol/L 98-107 N CARBON DIOXIDE (test code = CO2) mmol/L 21-32 ANION GAP (test code = GAP) 10-20 GLUCOSE (test code = GLU) mg/dL 74-106 BLOOD UREA NITROGEN (test code = BUN) mg/dL 7-18 GLOMERULAR FILTRATION RATE (test code = GFR) mL/min >=60 CREATININE (test code = CREAT) mg/dL 0.7-1.3 BUN/CREATININE RATIO (test code = BUN/CREA) 10-20 CALCIUM (test code = CA) mg/dL 8.5-10.1 COMPREHENSIVE METABOLIC [id number] 16:30:00* Test Item Value Reference Range Interpretation Comments TOTAL PROTEIN (test code = PROT) gram/dL 6.4-8.2 ALBUMIN (test code = ALB) g/dL 3.4-5.0 GLOBULIN (test code = GLOB) gram/dL 2.7-4.2 ALBUMIN/GLOBULIN RATIO (test code = A/G) 0.75-1.50 BILIRUBIN TOTAL (test code = BILT) mg/dL 0.0-1.0 SGOT/AST (test code = AST) IUnit/L 15-37 SGPT/ALT (test code = ALT) IUnit/L 12-78 ALKALINE PHOSPHATASE TOTAL (test code = ALKP) IUnit/L 45-117 - US ABDOMEN [id number] 16:14:00 Name: OZ PRIETO [facility] : 1960 Age/S: 60 / M [address] [facility] Unit #: [id number] Loc: [place] [address] Phys: Deya Luong MD Acct: [id number] Dis Date: Status: ADM IN PHONE #: [phone] Exam Date: 03/30/2020 1474 FAX #: [phone] Reason: +mercado's sign EXAMS: CPT CODE: [id number] US ABDOMEN LTD [id number] REASON FOR EXAM: +mercado's sign EXAM ORDER DATE: 03/30/2020 1:39 PM Attending M.D.: Deya Luong MD PROCEDURE: - US ABDOMEN LTD Technique: Grayscale and color Doppler images of the right-upper quadrant of the abdomen. Comparison: CT abdomen and pelvis March 27, 2020 FINDINGS: Aorta and IVC: Not visualized Liver: Size: 20.7 cm craniocaudally Parenchyma and contour: Smooth contour. Normal echogenicity. Cysts and/or masses: None. Intrahepatic bile ducts: No intrahepatic biliary ductal dilation Common bile duct: 3.1 mm in diameter. No echogenic filling defects in visualized duct. Gallbladder: Stones/sludge: No intraluminal stones or sludge. Wall: 1.4 mm in thickness. No discontinuity. No polyps. No pericholecystic fluid. No hyperemia. Sonographic Mercado's sign: Negative Portal vein: Portal vein caliber is within normal limits. Portal vein is patent with hepatopetal flow. Pancreas: Not visualized Right kidney: Please see the report from the renal ultrasound performed earlier today Ascites/pleural ef fusions: None IMPRESSION: PAGE 1 Sig kiel Report (CONTINUED) Name: OZ PRIETO [facility] : 1960 Age/S: 60 / M [address] [facility] Unit #: [id number] Loc: [place] [address] Phys: Deya Luong MD Acct: [id number] Dis Date: Status: ADM IN PHONE #: [phone] Exam Date: 03/30/2020 1558 FAX #: [phone] Reason: +mercado's sign EXAMS: CPT CODE: [id number] ABDOMEN LTD 00197 <Continued> Hepatobiliary system and portal vein are sonographically unremarkable. Specifically the sonographic Mercado sign is negative. Pancreas, aorta, and IVC are not visualized. Location: [facility] at 1614 Reported and signed by: Wale Parikh MD CC: Oz Avelar MD; Deya Luong MD Technologist: BENNIE GUZMAN RT(R),REJICO Trnvtb Date/Time: 03/30/2020 (1613) [id number] Orig Print D/T: S: 03/30/2020 (1617) Probe: PAGE 2 Signed Report [id number] 15:55:00* Test Item Value Reference Range Interpretation Comments GLUBED (test code = GLUBED) 149 mg/dL 74-106 H Performed by certified washerette machine operator at [facility] - RETRO [id number] 12:38:00 Name: OZ PRIETO [facility] : 1960 Age/S: 60 / M [address] Unit #: [id number] Loc: [place] [address] Phys: Deya Luong MD Acct: [id number] Dis Date: Status: ADM IN PHONE #: [phone] Exam Date: 03/30/2020 1144 FAX #: [phone] Reason: pyelonephritis still with pain EXAMS: CPT CODE: [id number] RETRO LTD [address] HISTORY: Pyelonephritis and sepsis. COMPARISON: CT of abdomen and pelvis from March 27, 2020. Location: [facility]. Both kidneys are free from hydronephrosis and calyceal stones. Normal echogenicity and texture. No perinephric collections. No perinephric stranding on the CT scan on the right side is not visible on the ultrasound. Right kidney measured 9.8 x 5.2 x 5.7 cm. Left kidney measured 10.6 x 6 x 5.6 cm. Well-distended urinary bladder. No wall thickening or mural nodules. IMPRESSION: Perinephric fat stranding noted on the on the right side on the CT scan is not visible on the ultrasound. No hydronephrosis or calyceal stones with normal echogenicity and texture. Unremarkable well- distended urinary bladder. at 1238 Reported and signed by: Gus Thomas M.D. CC: Oz Avelar MD; Deya Luong MD Technologist: BENNIE GUZMAN RT(R),RDCO Trnscb Date/Time: 03/30/2020 (1238) t.LYNR.TH4 Orig Print D/T: S: 03/30/2020 (8747) Probe: PAGE 1 Signed Report - XR ABDOMEN AP 1 V 2020-03-30 12:31:00 FAX: Oz Avelar MD [place]: B St: ADM FAX: Deya Luong MD Name: OZ PRIETO [facility] : 1960 Age/S: 60/M l[place]aire [place] Unit #: [id number] Loc: [id number] [place] [address] Phys: Deya Luong MD Acct: [id number] Dis Date: Status: ADM IN PHONE #: [phone] Exam Date: 03/30/2020 1206 FAX #: [phone] Reason: follow up EXAMS: CPT CODE: [id number] XR ABDOMEN AP 1 V 12715 HISTORY: Sepsis and pyelonephritis. COMPARISON: CT abdomen and pelvis from March 27, 2020. Location: [facility]. The upper abdomen is not included limiting evaluation. No bowel obstruction. Constipation. No pathologic calcifications. DJD of the lumbar spine. IMPRESSION: No bowel obstruction. Constipation. at 1231 Reported and signed by: Gus Thomas M.D. CC: Oz Avelar MD; Deya Luong MD Technologist: Nya Bates RT(R); Gina Fischer RT(R) Trnscrd Date/Time/By: 03/30/2020 (1231) : By: [email or web address] Orig Print D/T: S: 03/30/2020 (1233) PAGE 1 Signed Report [id number] 11:22:00* Test Item Value Reference Range Interpretation Comments GLUBED (test code = GLUBED) 250 mg/dL 74-106 H Performed by certified washerette machine operator at [facility] [id number] 08:15:00* Test Item Value Reference Range Interpretation Comments GLUBED (test code = GLUBED) 149 mg/dL 74-106 H Performed by certified washerette machine operator at [facility] [id number] 20:34:00* Test Item Value Reference Range Interpretation Comments GLUBED (test code = GLUBED) 232 mg/dL 74-106 H Performed by certified washerette machine operator at [facility] [id number] 16:47:00* Test Item Value Reference Range Interpretation Comments GLUBED (test code = GLUBED) 196 mg/dL 74-106 H Performed by certified washerette machine operator at [facility] [id number] 11:44:00* Test Item Value Reference Range Interpretation Comments GLUBED (test code = GLUBED) 223 mg/dL 74-106 H Performed by certified washerette machine operator at [facility] BASIC METABOLIC [id number] 10:18:00* Test Item Value Reference Range Interpretation Comments SODIUM (test code = NA) 135 mmol/L 136-145 L POTASSIUM (test code = K) 4.1 mmol/L 3.5-5.1 N CHLORIDE (test code = CL) 104.0 mmol/L 98-107 N CARBON DIOXIDE (test code = CO2) 25.0 mmol/L 21-32 N ANION GAP (test code = GAP) 10.1 10-20 N GLUCOSE (test code = GLU) 211 mg/dL 74-106 H BLOOD UREA NITROGEN (test code = BUN) 12 mg/dL 7-18 N GLOMERULAR FILTRATION RATE (test code = GFR) > 60 mL/min >=60 Estimated GFR by using Modified MDRD formula.Chronic kidney disease is defined as either kidney damageor GFR <60 mL/min/1.73 m2 for >3 months. CREATININE (test code = CREAT) 0.80 mg/dL 0.7-1.3 N BUN/CREATININE RATIO (test code = BUN/CREA) 15.7 10-20 N CALCIUM (test code = CA) 8.3 mg/dL 8.5-10.1 L [id number] 10:18:00* Test Item Value Reference Range Interpretation Comments MAGNESIUM (test code = MAG) 2.1 mg/dL 1.8-2.4 N BASIC METABOLIC [id number] 10:10:00* Test Item Value Reference Range Interpretation Comments SODIUM (test code = NA) 135 mmol/L 136-145 L POTASSIUM (test code = K) 4.1 mmol/L 3.5-5.1 N CHLORIDE (test code = CL) 104.0 mmol/L 98-107 N CARBON DIOXIDE (test code = CO2) mmol/L 21-32 ANION GAP (test code = GAP) 10-20 GLUCOSE (test code = GLU) mg/dL 74-106 BLOOD UREA NITROGEN (test code = BUN) mg/dL 7-18 GLOMERULAR FILTRATION RATE (test code = GFR) mL/min >=60 CREATININE (test code = CREAT) mg/dL 0.7-1.3 BUN/CREATININE RATIO (test code = BUN/CREA) 10-20 CALCIUM (test code = CA) mg/dL 8.5-10.1 [id number] 10:10:00* Test Item Value Reference Range Interpretation Comments MAGNESIUM (test code = MAG) mg/dL 1.8-2.4 CBC W/AUTO [id number] 10:03:00* Test Item Value Reference Range Interpretation Comments WHITE BLOOD CELL (test code = WBC) 7.7 K/mm3 4.5-12.5 N RED BLOOD CELL (test code = RBC) 3.39 mill/mm3 4.0-5.8 L HEMOGLOBIN (test code = HGB) 10.4 gram/dL 13.0-17.5 L HEMATOCRIT (test code = HCT) 33.5 % 42.0-52.0 L MEAN CELL VOLUME (test code = MCV) 98.8 fL 80-98 H MEAN CELL HGB (test code = MCH) 30.7 picogram 27.0-33.0 N MEAN CELL HGB CONCETRATION (test code = MCHC) 31.0 gram/dL 33.0-36. 0 L RED CELL DISTRIBUTION WIDTH (test code = RDW) 14.6 % 11.6-16. 2 N RED CELL DISTRIBUTION WIDTH SD (test code = RDW-SD) 53.5 fL 37 .0-51.0 H PLATELET COUNT (test code = PLT) 180 K/mm3 150-450 N MEAN PLATELET VOLUME (test code = MPV) 12.2 fL 6.7-11.0 H NEUTROPHIL % (test code = NT%) 73.8 % 39.0-69.0 H IMMATURE GRANULOCYTE % (test code = IG%) 0.7 % 0.0-5.0 N LYMPHOCYTE % (test code = LY%) 13.8 % 25.0-55.0 L MONOCYTE % (test code = MO%) 10.6 % 0.0-10.0 H EOSINOPHIL % (test code = EO%) 0.7 % 0.0-5.0 N BASOPHIL % (test code = BA%) 0.4 % 0.0-1.0 N NUCLEATED RBC % (test code = NRBC%) 0.0 % 0-0 N NEUTROPHIL # (test code = NT#) 5.66 K/mm3 1.8-7.7 N IMMATURE GRANULOCYTE # (test code = IG#) 0.05 x10 3/uL 0-0.03 H LYMPHOCYTE # (test code = LY#) 1.06 K/mm3 1.0-5.0 N MONOCYTE # (test code = MO#) 0.81 K/mm3 0-0.8 H EOSINOPHIL # (test code = EO#) 0.05 K/mm3 0.0-0.5 N BASOPHIL # (test code = BA#) 0.03 K/mm3 0.0-0.2 N NUCLEATED RBC # (test code = NRBC#) 0.00 K/mm3 0.0-0.1 N MANUAL DIFF REQUIRED (test code = MDIFF) NO [id number] 08:31:00* Test Item Value Reference Range Interpretation Comments GLUBED (test code = GLUBED) 146 mg/dL 74-106 H Performed by certified washerette machine operator at [facility] [id number] 20:50:00* Test Item Value Reference Range Interpretation Comments GLUBED (test code = GLUBED) 251 mg/dL 74-106 H Performed by certified washerette machine operator at [facility] [id number] 19:10:00* Test Item Value Reference Range Interpretation Comments GLUBED (test code = GLUBED) 223 mg/dL 74-106 H Performed by certified washerette machine operator at [facility] [id number] 12:03:00* Test Item Value Reference Range Interpretation Comments GLUBED (test code = GLUBED) 129 mg/dL 74-106 H Performed by certified washerette machine operator at [facility] [id number] 10:46:00* Test Item Value Reference Range Interpretation Comments GLUBED (test code = GLUBED) 251 mg/dL 74-106 H Performed by certified washerette machine operator at [facility] BASIC METABOLIC [id number] 06:13:00* Test Item Value Reference Range Interpretation Comments SODIUM (test code = NA) 136 mmol/L 136-145 N POTASSIUM (test code = K) 4.0 mmol/L 3.5-5.1 N CHLORIDE (test code = CL) 103.0 mmol/L 98-107 N CARBON DIOXIDE (test code = CO2) 24.0 mmol/L 21-32 N ANION GAP (test code = GAP) 13.0 10-20 N GLUCOSE (test code = GLU) 93 mg/dL 74-106 N BLOOD UREA NITROGEN (test code = BUN) 21 mg/dL 7-18 H GLOMERULAR FILTRATION RATE (test code = GFR) > 60 mL/min >=60 Estimated GFR by using Modified MDRD formula.Chronic kidney disease is defined as either kidney damageor GFR <60 mL/min/1.73 m2 for >3 months. CREATININE (test code = CREAT) 0.80 mg/dL 0.7-1.3 N BUN/CREATININE RATIO (test code = BUN/CREA) 26.9 10-20 H CALCIUM (test code = CA) 8.4 mg/dL 8.5-10.1 L BASIC METABOLIC [id number] 06:03:00* Test Item Value Reference Range Interpretation Comments SODIUM (test code = NA) 136 mmol/L 136-145 N POTASSIUM (test code = K) 4.0 mmol/L 3.5-5.1 N CHLORIDE (test code = CL) 103.0 mmol/L 98-107 N CARBON DIOXIDE (test code = CO2) mmol/L 21-32 ANION GAP (test code = GAP) 10-20 GLUCOSE (test code = GLU) mg/dL 74-106 BLOOD UREA NITROGEN (test code = BUN) mg/dL 7-18 GLOMERULAR FILTRATION RATE (test code = GFR) mL/min >=60 CREATININE (test code = CREAT) mg/dL 0.7-1.3 BUN/CREATININE RATIO (test code = BUN/CREA) 10-20 CALCIUM (test code = CA) mg/dL 8.5-10.1 CBC W/AUTO [id number] 04:58:00* Test Item Value Reference Range Interpretation Comments WHITE BLOOD CELL (test code = WBC) 13.5 K/mm3 4.5-12.5 H RED BLOOD CELL (test code = RBC) 3.67 mill/mm3 4.0-5.8 L HEMOGLOBIN (test code = HGB) 11.6 gram/dL 13.0-17.5 L HEMATOCRIT (test code = HCT) 35.6 % 42.0-52.0 L MEAN CELL VOLUME (test code = MCV) 97.0 fL 80-98 N MEAN CELL HGB (test code = MCH) 31.6 picogram 27.0-33.0 N MEAN CELL HGB CONCETRATION (test code = MCHC) 32.6 gram/dL 33.0-36. 0 L RED CELL DISTRIBUTION WIDTH (test code = RDW) 14.9 % 11.6-16. 2 N RED CELL DISTRIBUTION WIDTH SD (test code = RDW-SD) 53.4 fL 37 .0-51.0 H PLATELET COUNT (test code = PLT) 189 K/mm3 150-450 MEAN PLATELET VOLUME (test code = MPV) 11.6 fL 6.7-11.0 H NEUTROPHIL % (test code = NT%) 81.8 % 39.0-69.0 H IMMATURE GRANULOCYTE % (test code = IG%) 0.7 % 0.0-5.0 N LYMPHOCYTE % (test code = LY%) 8.6 % 25.0-55.0 L MONOCYTE % (test code = MO%) 8.7 % 0.0-10.0 N EOSINOPHIL % (test code = EO%) 0.1 % 0.0-5.0 N BASOPHIL % (test code = BA%) 0.1 % 0.0-1.0 N NUCLEATED RBC % (test code = NRBC%) 0.0 % 0-0 N NEUTROPHIL # (test code = NT#) 11.04 K/mm3 1.8-7.7 H IMMATURE GRANULOCYTE # (test code = IG#) 0.10 x10 3/uL 0-0.03 H LYMPHOCYTE # (test code = LY#) 1.16 K/mm3 1.0-5.0 N MONOCYTE # (test code = MO#) 1.17 K/mm3 0-0.8 H EOSINOPHIL # (test code = EO#) 0.02 K/mm3 0.0-0.5 N BASOPHIL # (test code = BA#) 0.02 K/mm3 0.0-0.2 N NUCLEATED RBC # (test code = NRBC#) 0.00 K/mm3 0.0-0.1 N MANUAL DIFF REQUIRED (test code = MDIFF) NO [id number] 23:55:00* Test Item Value Reference Range Interpretation Comments GLYCOSYLATED HEMOGLOBIN (HA1C) (test code = GLYHGB) 7.5 % HbA1 SUGGESTED DIAGNOSIS: HbA1C (%) Diabetic >6.4Prediabetes 5.7 - 6.4Normal <5.7 ESTIMATED AVERAGE GLUCOSE (test code = EAG) 169 MG/DL - CTA CHEST FOR [id number] 23:36:00 Name: OZ PRIETO [facility] : 1960 Age/S: 60 / M [place] Unit #: [id number] Loc: [place] [address] Phys: Iraida Perkins FIELD SUPPORT REPRESENTATIVE Acct: [id number] Dis Date: Status: ADM IN PHONE #: [phone] Exam Date: 03/27/20202309 FAX #: [phone] Reason: SOB, r/o PE EXAMS: CPT CODE: [id number] [place] [address] HISTORY: Chest pain, evaluate for pulmonary embolus. Location: [facility] COMPARISON: None TECHNIQUE: Axial tomograms through the chest were obtained after intravenous contrast utilizing pulmonary CTA protocol. Multiplanar maximum intensity projection reformatted images are provided. One or more of the following dose reduction techniques were used: Automated exposure control, adjustment of the mA and/or kV according to patient size, and/or utilization of iterative reconstruction technique. FINDINGS: The pulmonary arteries are well opacified with no evidence of pulmonary embolus. There is no evidence of aortic aneurysm or dissection. There is no significant mediastinal or hilar adenopathy. No significant pleural effusion. No acute osseous abnorm alities are demonstrated. There is an 8 x 6 mm ovoid nodule demonstr ated in the posterior right upper lobe. No other dominant pulmonary nodul e or mass demonstrated. No focal consolidation. Aortic and coronary calcifications are noted. IMPRESSION: 1. No e vidence of pulmonary embolus. 2. Aortic and coronary calcifications. 3. 8 x 6 mm right upper lobe nodule. 6 month follow-up chest CT recommended. at 8522 Reported and signed by: Angie Light MD PAGE 1 Signed Report (CONT INUED) Name: OZ PRIETO [facility] : 1960 Age/S: 60 / M [place] Unit #: [id number] Loc: [place] [address] Phys: Iraida Bone FIELD SUPPORT REPRESENTATIVE Acct: [id number] Dis Date: Status: ADM IN [place] NE #: [phone] Exam Date: 03/27/2020 2310 FAX #: Reason: SOB, r/o PE EXAM S: CPT CODE: [id number] [place] [address] <Continued> CC: Nina Andrea MD; Iraida Perkins NP Technologist:ARTURO DEL RIO(R)(CT); PRESLEY CTDI: DLP: Trnscb Date/Time: 03/27/2020 (2335) [email or web address].[email or web address] Orig Print D/T: S: 03/27/2020 (2338) PAGE 2 Signed Report [id number] 23:06:00* Test Item Value Reference Range Interpretation Comments GLUBED (test code = GLUBED) 118 mg/dL 74-106 H Performed by certified washerette machine operator at [facility] Coronavirus 2019 nCoV [id number] 18:47:00* Test Item Value Reference Range Interpretation Comments Coronavirus 2019 nCoV Bedside (test code = [id number]) Negative Is patient requiring admission or transfer? YIndication for rapid COVID-19 testi ng: High Clinical Suspicion- CT ABD PELVIS W/O [id number] 16:35:00 Name: OZ PRIETO [facility] : 1960 Age/S: 60 / M [address] [facility] Unit #: [id number] Loc: [place] [address] Phys: Paulie Sharpe MD Acct: [id number] Dis Date: Status: PRE ER PHONE #: [phone] Exam Date: 03/27/2020 1610 FAX #: [phone] Reason: BACK PAIN, FEVER EXAMS: CPT CODE: [id number] CT ABD PELVIS W/O CONT 75643 REASON FOR EXAM: BACK PAIN, FEVER EXAM ORDER DATE: 03/27/2020 3:55 PM Ordering MUmberto: Paulie Sharpe MD PROCEDURE: Axial CT images were acquired through the abdomen/pelvis at 5 mm intervals. Sagittal and coronal reformatted images were generated. Automated exposure control was utilized for this reduction. Phases of contrast: None COMPARISON: None FINDINGS: The absence of IV contrast limits sensitivity of this exam for the detection of soft tissue pathology Visualized thorax: Lung bases are clear. Coronary calcifications are present Hepatobiliary system: Grossly normal Pancreas: Grossly normal Spleen: Grossly normal Adrenal glands: Grossly normal Genitourinary system: There is mild perinephric fat stranding on the right side. Otherwise grossly normal Gastrointestinal tract and appendix: Mild diverticulosis of the sigmoid colon without diverticulitis. Otherwise grossly normal Abdominal vascular structures: Mild atherosclerotic calcifications are present in the abdominal aorta and the iliac and mesenteric arteries Peritoneum and retroperitoneum: No free fluid or free air. No omental or mesenteric masses. No abnormal lymph nodes. 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 Additional degenerative PAGE 1 Signed Report (CONTINUED) Name: OZ PRIETO [facility] : 1960 Age/S: 60 / M [address] [facility] Unit #: [id number] Loc: [place] [address] Phys: Paulie Sharpe MD Acct: [id number] Dis Date: Status: PRE ER PHONE #: [phone] Exam Date: 03/27/2020 1610 FAX #: [phone] Reason: BACK PAIN, FEVER EXAMS: CPT CODE: [id number] CT ABD PELVIS W/O CONT 39477 < Continued> changes are present in the visualized thoracic spine. Small fat-containing inguinal hernia on the right side IMPRESSION: Mild stranding of the perinephric fat on the right side may represent pyelonephritis. However no abscess or stone is seen involving either kidney or ureter. Location: [facility] at 1635 Reported and signed by: Wale Parikh MD CC: Paulie Sharpe MD Technologist:Jennifer Foley CTDI: DLP: Trnscb Date/Time: 03/27/2020 (1635) [email or web address] Orig Print D/T: S: 03/27/2020 (3273) PAGE 2 Signed Report [id number] 16:30:00* Test Item Value Reference Range Interpretation Comments D-DIMER (test code = DDIMER) 1010 ng/ml < 600 HH Results called to CASTRO BRIAN by [email or web address] 03/27/20 1630Critical results verified and read back by Nurse? Y C REACTIVE [id number] 16:09:00* Test Item Value Reference Range Interpretation Comments C REACTIVE PROTEIN (test code = CRP) > 25 0.00-5.00 H B-TYPE NATRIURETIC [id number] 15:53:00* Test Item Value Reference Range Interpretation Comments B-TYPE NATRIURETIC PEPTIDE (test code = BNP) 122 pg/mL 0-100 H BASIC METABOLIC [id number] 15:48:00* Test Item Value Reference Range Interpretation Comments SODIUM (test code = NA) 132 mmol/L 136-145 L POTASSIUM (test code = K) 4.7 mmol/L 3.5-5.1 N CHLORIDE (test code = CL) 95 mmol/L 101-109 L CARBON DIOXIDE (test code = CO2) 26.7 mmol/L 21-32 N ANION GAP (test code = GAP) 15 mmol/L 10-20 N GLUCOSE (test code = GLU) 227 mg/dL 74-106 H BLOOD UREA NITROGEN (test code = BUN) 22 mg/dL 3-21 H GLOMERULAR FILTRATION RATE (test code = GFR) 52 mL/min >=60 Estimated GFR by using Modified MDRD formula.Chronic kidney disease is defined as either kidney damageor GFR <60 mL/min/1.73 m2 for >3 months. CREATININE (test code = CREAT) 1.38 mg/dL 0.55-1.3 H BUN/CREATININE RATIO (test code = BUN/CREA) 15.9 10-20 N CALCIUM (test code = CA) 8.7 mg/dL 8.4-10.2 N HEPATIC FUNCTION [id number] 15:48:00* Test Item Value Reference Range Interpretation Comments TOTAL PROTEIN (test code = PROT) 7.4 g/dL 6.5-8.4 N ALBUMIN (test code = ALB) 3.0 g/dL 3.4-4.8 L GLOBULIN (test code = GLOB) 4.4 G/DL 1-10 N ALBUMIN/GLOBULIN RATIO (test code = A/G) 0.68 RATIO 0.75-1.50 L BILIRUBIN TOTAL (test code = BILT) 1.20 mg/dL 0.0-1.0 H BILIRUBIN DIRECT (test code = BILD) 0.20 mg/dL 0.0-0.30 N SGOT/AST (test code = AST) 15 U/L 6-32 N SGPT/ALT (test code = ALT) 27 U/L 12-78 N N ote: Change in REFERENCE RANGE due to new reagent method. ALKALINE PHOSPHATASE TOTAL (test code = ALKP) 87 U/L 38-126 N [id number] 15:48:00* Test Item Value Reference Range Interpretation Comments TROPONIN-I (test code = TROPI) <0.015 ng/mL 0.00-0.056 N LACTIC [id number] 15:47:00* Test Item Value Reference Range Interpretation Comments LACTIC ACID (test code = LACT) 1.6 MMOL/L 0.4-1.9 N BASIC METABOLIC [id number] 15:40:00* Test Item Value Reference Range Interpretation Comments SODIUM (test code = NA) 132 mmol/L 136-145 L POTASSIUM (test code = K) 4.7 mmol/L 3.5-5.1 N CHLORIDE (test code = CL) 95 mmol/L 101-109 L CARBON DIOXIDE (test code = CO2) 26.7 mmol/L 21-32 N ANION GAP (test code = GAP) 15 mmol/L 10-20 N GLUCOSE (test code = GLU) 227 mg/dL 74-106 H BLOOD UREA NITROGEN (test code = BUN) 22 mg/dL 3-21 H GLOMERULAR FILTRATION RATE (test code = GFR) 52 mL/min >=60 Estimated GFR by using Modified MDRD formula.Chronic kidney disease is defined as either kidney damageor GFR <60 mL/min/1.73 m2 for >3 months. CREATININE (test code = CREAT) 1.38 mg/dL 0.55-1.3 H BUN/CREATININE RATIO (test code = BUN/CREA) 15.9 10-20 N CALCIUM (test code = CA) 8.7 mg/dL 8.4-10.2 N HEPATIC FUNCTION [id number] 15:40:00* Test Item Value Reference Range Interpretation Comments TOTAL PROTEIN (test code = PROT) gram/dL 6.4-8.2 ALBUMIN (test code = ALB) g/dL 3.4-5.0 GLOBULIN (test code = GLOB) g/dL 2.7-4.2 ALBUMIN/GLOBULIN RATIO (test code = A/G) 0.75-1.50 BILIRUBIN TOTAL (test code = BILT) mg/dL 0.2-1.2 BILIRUBIN DIRECT (test code = BILD) mg/dL 0.0-0.20 SGOT/AST (test code = AST) IUnit/L 15-37 SGPT/ALT (test code = ALT) U/L 10-69 ALKALINE PHOSPHATASE TOTAL (test code = ALKP) IUnit/L 45-117 [id number] 15:40:00* Test Item Value Reference Range Interpretation Comments TROPONIN-I (test code = TROPI) ng/mL 0-0.045 CBC W/AUTO [id number] 15:35:00* Test Item Value Reference Range Interpretation Comments WHITE BLOOD CELL (test code = WBC) 19.8 K/mm3 4.5-12.5 H RED BLOOD CELL (test code = RBC) 4.34 mill/mm3 4.0-5.8 N HEMOGLOBIN (test code = HGB) 13.5 gram/dL 13.0-17.5 N HEMATOCRIT (test code = HCT) 41.7 % 42.0-52.0 L MEAN CELL VOLUME (test code = MCV) 96.1 fL 80-98 N MEAN CELL HGB (test code = MCH) 31.1 picogram 27.0-33.0 N MEAN CELL HGB CONCETRATION (test code = MCHC) 32.4 gram/dL 33.0-36. 0 L RED CELL DISTRIBUTION WIDTH (test code = RDW) 14.4 % 11.6-16. 2 N RED CELL DISTRIBUTION WIDTH SD (test code = RDW-SD) 52.5 fL 37 .0-51.0 H PLATELET COUNT (test code = PLT) 248 K/mm3 150-450 N MEAN PLATELET VOLUME (test code = MPV) 11.0 fL 6.7-11.0 N NEUTROPHIL % (test code = NT%) 90.3 % 39.0-69.0 H LYMPHOCYTE % (test code = LY%) 4.1 % 25.0-55.0 L MONOCYTE % (test code = MO%) 5.1 % 0.0-10.0 N EOSINOPHIL % (test code = EO%) 0.0 % 0.0-5.0 N BASOPHIL % (test code = BA%) 0.1 % 0.0-1.0 N NEUTROPHIL # (test code = NT#) 17.85 K/mm3 1.8-7.7 H LYMPHOCYTE # (test code = LY#) 0.82 K/mm3 1.0-5.0 L MONOCYTE # (test code = MO#) 1.01 K/mm3 0-0.8 H EOSINOPHIL # (test code = EO#) 0.00 K/mm3 0.0-0.5 N BASOPHIL # (test code = BA#) 0.01 K/mm3 0.0-0.2 N MANUAL DIFF REQUIRED (test code = MDIFF) NO URINALYSIS [id number] 15:29:00* Test Item Value Reference Range Interpretation Comments UA COLOR (test code = COLU) DARK YELLOW YELLOW A UA APPEARANCE (test code = APPU) Cloudy CLEAR A UA GLUCOSE DIPSTICK (test code = DGLUU) 1000 (3+) mg/dL NEGATIVE A UA BILIRUBIN DIPSTICK (test code = BILU) NEGATIVE mg/dL NEGATIVE UA KETONE DIPSTICK (test code = KETU) 15 (1+) mg/dL NEGATIVE A UA SPECIFIC GRAVITY (test code = SGU) 1.010 1.001-1.035 UA BLOOD DIPSTICK (test code = INDU) 50 (2+) Denis/uL NEGATIVE A UA PH DIPSTICK (test code = ALBER) 5.0 5.0-8.0 UA PROTEIN DIPSTICK (test code = PROU) 15 (TRACE) mg/dL Neg-15 A UA UROBILINIOGEN DIPSTICK (test code = URO) norm mg/dL 0.0-0.2 UA NITRITE DIPSTICK (test code = LUIS A) NEGATIVE NEGATIVE UA LEUKOCYTE ESTERASE DIPSTICK (test code = LEUU) 100 Santos/uL (1+) u L NEGATIVE A UA WBC (test code = WBCU) 20-30 per HPF 0-5 A UA RBC (test code = RBCU) 3-5 per HPF 0-5 A UA EPITHELIAL CELLS (test code = EPIU) Few (2-5/hpf) per HPF Few UA BACTERIA (test code = BACU) LOADED per HPF NONE A Urine Source? Clean Catch- XR CHEST 1 [id number] 15:21:00 Name: OZ PRIETO [facility] : 1960 Age/S:60 /M [address] [facility] Unit#:[id number] Loc: [place] [address] Phys: Paulie Sharpe MD Dis Date: PHONE #: [phone] Status: PRE ER FAX #: [phone] Exam Date: 03/27/2020 Reason: COUGH, DYSPNEA EXAMS: CPT CODE: [id number] XR CHEST 1 V [id number] REASON FOR EXAM: COUGH, DYSPNEA Exam Order Date: 03/27/2020 2:51 PM Ordering M.D.: Paulie Sharpe MD PROCEDURE: - XR CHEST 1 V COMPARISON: Chest x-ray May 30, 2016 FINDINGS: The lungs are clear. There is no pleural effusion or pneumothorax. Pulmonary vascularity is within normal limits. Cardiomediastinal silhouette is normal in size for technique. The mediastinal contours are within normal limits. Degenerative changes in the right shoulder appears similar to the prior exam. The visualized upper abdomen is within normal limits. IMPRESSION: No acute cardiopulmonary process. Location: [facility] at 1521 Reported and signed by: Wale Parikh MD CC: Paulie Sharpe MD Technologist: Jennifer Foley Trnscrpt Data: 03/27/2020 (1521) [id number] Orig Print D/T: S: 03/27/2020 (1525) PAGE 1 Signed Report URINALYSIS [id number] 15:13:00* Test Item Value Reference Range Interpretation Comments UA COLOR (test code = COLU) DARK YELLOW YELLOW A UA APPEARANCE (test code = APPU) Cloudy CLEAR A UA GLUCOSE DIPSTICK (test code = DGLUU) 1000 (3+) mg/dL NEGATIVE A UA BILIRUBIN DIPSTICK (test code = BILU) NEGATIVE mg/dL NEGATIVE UA KETONE DIPSTICK (test code = KETU) 15 (1+) mg/dL NEGATIVE A UA SPECIFIC GRAVITY (test code = SGU) 1.010 1.001-1.035 UA BLOOD DIPSTICK (test code = INDU) 50 (2+) Denis/uL NEGATIVE A UA PH DIPSTICK (test code = ALBER) 5.0 5.0-8.0 UA PROTEIN DIPSTICK (test code = PROU) 15 (TRACE) mg/dL Neg-15 A UA UROBILINIOGEN DIPSTICK (test code = URO) norm mg/dL 0.0-0.2 UA NITRITE DIPSTICK (test code = LUIS A) NEGATIVE NEGATIVE UA LEUKOCYTE ESTERASE DIPSTICK (test code = LEUU) 100 Santos/uL (1+) u L NEGATIVE A UA WBC (test code = WBCU) per HPF 0-5 UA RBC (test code = RBCU) per HPF 0-5 UA EPITHELIAL CELLS (test code = EPIU) per HPF Few UA BACTERIA (test code = BACU) per HPF NONE Urine Source? Clean CatchCHEST 2 [id number] 13:10:00 [place] [id number] Patient Name: OZ PRIETO MR #: [id number] : 1960 Age/Sex: 60/M Req #: [id number] Adm Physician: AYDE VARNER MD Ordered by: BRODERICK MATTHEWS MD Report #: [id number] Location: [facility] Room/Bed: [facility] Procedure: DX/CHEST 2 VIEWS Exam Date: 03/15/20 Exam Time: 1243 REPORT STATUS: Signed TECHNIQUE: Frontal and lateral views of the chest. INDICATION: conestion [id number] 12 43 COMPARISON: Prior day. IMPRESSION: Lines and hardware: Stable. Heart and mediastinum: Stable. Lungs and pleura: Stable minimal bibasilar hazy airspace opacities. No pleural effusion. No pneumothorax. Soft tissues and bones: No acute abnormality. Signed by: Jean Carlos Munoz MD on 03/15/2020 1:11 PM Dictated By: JEAN CARLOS MUNOZ DO 10 Transcribed By: LUZ MARIA on 03/15/201310 COPY TO: BRODERICK MATTHEWS MD RENAL RETROPERITONEAL PIUK7085-40-49 11:12:00 [place] [address] Patient Name: OZ PRIETO MR #: [id number] : 1960 Age/Sex: 60/M Req #: [id number] Adm Physician: AYDE VARNER MD Ordered by: BRODERICK MATTHEWS MD Report #: [id number] Location: [facility] Room/Bed: [facility] Procedure: [id number] US/US AIXA L RETROPERITONEAL COMP Exam Date: 03/15/20 Exam Time : 1044 REPORT STATUS: Signed HIS TORY: [id number] ELEVATED CREATININE COMPARISON: None. T ECHNIQUE: Grayscale and color spectral Doppler ultrasound of the kidneys and b ladder. FINDINGS: The right kidney measures 10.4 x 5.4 x 4.8 cm. Cortica l thickness measures 1.8 cm. No sonographically evident mass or hydronephrosis . Renal artery and vein are patent. The left kidney measures 11.5 x 5.6 x 5.0 cm. Cortical thickness measures 2.2 cm. No sonographically evident mass or hydronephrosis. Renal artery and vein are patent. Bladder: Unremarkable. IMPRESSION : Normal renal ultrasound. Signed by: Jean Carlos Munoz MD on 03/15/2020 11:13 AM Dictated By: JEAN CARLOS MUNOZ DO Electronically S igned By: JEAN CARLOS MUNOZ DO on 03/15/20 1113 Transcribed By: LUZ MARIA on 0 1113 COPY TO: BRODERICK MATTHEWS MD CHEST SINGLE (PORTABLE)2020-03-14 11:34:00 [place] [address] Patient Name: OZ PRIETO MR #: [id number] : 1960 Age/Sex: 60/M Req #: [id number] Adm Physician: AYDE VARNER MD Ordered by: BEAU CARR DO Report #: [id number] Location: [facility] Room/Bed: [place] [address] Procedure: [id number] DX/CH EST SINGLE (PORTABLE) Exam Date: 03/14/20 Exam Time: 0915 REPORT STATUS: Signed TECH NIQUE: Frontal view of the chest. INDICATION: 60-year-old man with cough an d fever. COMPARISON: Chest radiograph 04/14/2019. FINDINGS: MARIAMA ES/TUBES: None. LUNGS: The lungs are well inflated. No consolidation or pul monary edema. PLEURA: No pneumothorax or significant pleural effusion. HEART AND MEDIASTINUM: The cardiomediastinal silhouette is within normal limi ts. SOFT TISSUES AND BONES: Degenerative changes of the right glenohumeral joint with unchanged calcification adjacent to the right humeral neck. Soft ti ssues are unremarkable. IMPRESSION: No acute cardiopulmonary abnorma lities. Signed by: Alex Richardson MD on 03/14/2020 11:35 AM Dictated By: ALEX RICHARDSON MD 113 Transcribed By: LUZ MARIA on 03/14/20 1135 COPY TO: BEAU CARR DO POC jvkyhup6040-77-05 07:30:39* Test Item Value Reference Range Interpretation Comments POC glucose (test code = 67334-2) 116 mg/dL 65-99 H [facility] Notified RNMeter ID: [id number]: Mike Ricks Lab Interpretation (test code = 55246-2) Abnormal [place] AmpskwplfJjavkb0632-68-17 13:16:10Jonathan Farooq CRNA 07/20/2019 1:17 PMAirwayDate/Time: 07/20/2019 1:00 PMPerformed by: Jonathan Farooq CRNAAuthorized by: Amol Llamas MD Location: ORUrgency: ElectiveDifficult Airway: No Resident/DEVELOPMENT SPEC/AA: Jonathan Farooq CRNAPerformed by: resident/DEVELOPMENT SPEC/AAPreoxygenated with 100% O2: Yes C-spine Precautions Maintained Throughout: No Mask Ventilation: Not attemptedFinal Airway Type: Supraglottic airwayFinal LMA: Air - QLMA Size: 5Number of Attempts at Approach: 2 Igel insertion with low TV, changed to Air-Q LMA with good TV.Smooth and atraumatic LMA insertion [place] MethodistPeripheral Puwna2152-64-51 12:57:42Amol Llamas MD 07/20/2019 1:15 PMPeripheral BlockPerformed by: Amol Llamas MDAuthorized by: Amol Llamas MD Patient Location: Block roomStart Time: 07/20/2019 12:18 PMEnd Time: 07/20/2019 12:20 PMReason for Block: at surgeon's request, post-op pain management Staff: Anesthesiologist: Amol Llamas MD Performed by: AnesthesiologistPreprocedure: patient identified, IV checked, site and side verified, risks and benefits discussed, procedure verified, surgical consent complete, patient position confirmed, monitors and equipment checked, pre-op evaluation complete and site marked Time Out Performed: 07/20/2019 11:58 AMPeripheral Nerve Block: Patient Position: Pertinent anatomy defined and supine Prep: ChloraPrep and patient draped Monitoring: Blood pressure monitoring, continuous pulse oximetry and heart rat eBlock Type: Adductor canal and saphenousLaterality: RightInjection Technique: Single injectionProcedures: ultrasound guided Ultrasound documentation: Imag es saved on hard disk, images saved on portable media, printed/placed in chart a nd still images obtainedNeedle: Needle Type: Pajunk and SonoPlex Needle Gaug e: 22 G Needle Length: 8 cmAssessment: Injection Assessment: Visualized ne edle/local anesthetic surrounding nerve, visualized pertinent vascular structure s and nerves, needle tip visualized at all times during injection of medication, no symptoms of intraneural/intravenous injection and intermittent aspiration du ring local anesthetic administration Paresthesia Pain: None Heart Rate Change : No Slow Fractionated Injection: Yes Block outcome: No apparent complica tions, patient comfortable and patient tolerated procedure wellNotes: No issu es VSS 97%132/643624 [place] MethodistPeripheral Trsjo7643-40-51 12:55:58Amol Llamas MD 07/20/2019 12:57 PMPeripheral BlockPerformed by: Amol Llamas MDAuthorized by: Amol Llamas MD Patient Location: Block roomStart Time: 07/20/2019 12:09 PMEnd Time: 07/20/2019 12:16 PMReason for Block: at surgeon's request, post-op pain management Staff: Anesthesi ologist: Amol Llamas MD Performed by: AnesthesiologistPreprocedure : patient identified, IV checked, site and side verified, risks and benefits dis cussed, procedure verified, surgical consent complete, patient position confirme d, monitors and equipment checked, pre-op evaluation complete and site marked T mariela Out Performed: 07/20/2019 11:58 AMPeripheral Nerve Block: Patient Positio n: Left lateral decubitus and pertinent anatomy defined Prep: ChloraPrep and p atient draped Monitoring: Blood pressure monitoring, continuous pulse oximet ry and heart rateBlock Type: Popliteal and sciaticLaterality: RightInjection T echnique: Catheter insertionProcedures: ultrasound guided Ultrasound documenta tion: Images saved on hard disk, images saved on portable media, printed/placed in chart and still images obtainedNeedle: Needle Type: Benita Needle Gauge: 19 G Needle Length: 10 cmAssessment: Injection Assessment: Visualized nee dle/local anesthetic surrounding nerve, visualized pertinent vascular structures and nerves, needle tip visualized at all times during injection of medication, no symptoms of intraneural/intravenous injection and intermittent aspiration dur ing local anesthetic administration Paresthesia Pain: None Heart Rate Change: No Slow Fractionated Injection: Yes Block outcome: No apparent complicat ions, patient comfortable and patient tolerated procedure wellNotes: Lalo lopez Jesus Torres Lbgrrqwkm8742-24-91 06:22:00* Test Item Value Reference Range Interpretation Comments Free Thyroxine (test code = 3024-7) 1.28 0.8-1.8 [facility] HospitalThyroid Stimulating Hormone (TSH) 2019-04-16 06:22:00* Test Item Value Reference Range Interpretation Comments Thyroid Stimulating Hormone (TSH) (test code = 89037-3) 1.683 0.350-4.940 [facility] HospitalDifferential Total Cells Counted 2019-04-16 06:21:00* Test Item Value Reference Range Interpretation Comments Differential Total Cells Counted (test code = Differen tial Total Cells Counted) 100 [facility] HospitalNeutrophils % (Manual)2019-04-16 06:21:00 * Test Item Value Reference Range Interpretation Comments Neutrophils % (Manual) (test code = 50410-3) 88 40-74 H [facility] HospitalLymphocytes % (Manual)2019-04-16 06:21:00 * Test Item Value Reference Range Interpretation Comments Lymphocytes % (Manual) (test code = 737-7) 8 19-48 L [facility] HospitalMonocytes % (Manual)2019-04-16 06:21:00* Test Item Value Reference Range Interpretation Comments Monocytes % (Manual) (test code = 744-3) 4 3.4-9.0 [facility] HospitalPlatelet Edazahbk1471-84-92 06:21:00* Test Item Value Reference Range Interpretation Comments Platelet Estimate (test code = 89704-4) ADEQUATE [facility] HospitalPlatelet Morphology Pooehzu6880-51-38 06:21:00* Test Item Value Reference Range Interpretation Comments Platelet Morphology Comment (test code = 52960-9) NORMAL [facility] HospitalAnisocytosis2019-07-19 06:21:00* Test Item Value Reference Range Interpretation Comments Anisocytosis (test code = 702-1) SLIGHT [facility] HospitalMacrocytosis2019-07-19 06:21:00* Test Item Value Reference Range Interpretation Comments Macrocytosis (test code = 738-5) SLIGHT [facility] HospitalRed Cell Morphology Abnjjzq8972-21-24 06:21:00* Test Item Value Reference Range Interpretation Comments Red Cell Morphology Comment (test code = 6742-1) ABNORMAL [facility] Planoodium Byhxy8335-59-09 06:12:00* Test Item Value Reference Range Interpretation Comments Sodium Level (test code = 2951-2) 136 136-145 [facility] HospitalPotassium Zhlnl7966-77-36 06:12:00* Test Item Value Reference Range Interpretation Comments Potassium Level (test code = 2823-3) 4.0 3.5-5.1 [facility] HospitalChloride Cjgyd2250-84-03 06:12:00* Test Item Value Reference Range Interpretation Comments Chloride Level (test code = 2075-0) 100 98-107 [facility] HospitalCarbon Dioxide Zdkof9764-08-04 06:12:00* Test Item Value Reference Range Interpretation Comments Carbon Dioxide Level (test code = 2028-9) 26 22-29 [facility] HospitalAnion Miv8139-60-81 06:12:00* Test Item Value Reference Range Interpretation Comments Anion Gap (test code = 59187-1) 14.0 8-16 [facility] HospitalBlood Urea Rvxptdfa9629-68-21 06:12:00* Test Item Value Reference Range Interpretation Comments Blood Urea Nitrogen (test code = 3094-0) 31 7-26 H [facility] HospitalCreatinine2019-07-19 06:12:00* Test Item Value Reference Range Interpretation Comments Creatinine (test code = 2160-0) 0.88 0.72-1.25 [facility] HospitalBUN/Creatinine Ufiei9523-60-38 06:12:00* Test Item Value Reference Range Interpretation Comments BUN/Creatinine Ratio (test code = 3097-3) 35 6-25 H [facility] HospitalEstimat Glomerular Filtration Rate 2019-04-16 06:12:00* Test Item Value Reference Range Interpretation Comments Estimat Glomerular Filtration Rate (test code = 959021637) > 60 >60 Ranges were taken from the National Kidney Disease Education Program and the [facility] Kidney Foundation literature.Reference ranges:60 or greater: Jsnssj18-54 ( for 3 consecutive months): Chronic kidney disease 15 or less: Kidney failureEl Campo Memorial HospitalGlucose Oeqim4587-23-68 06:12:00* Test Item Value Reference Range Interpretation Comments Glucose Level (test code = HPK1909) 174 74-118 H [facility] HospitalCalcium Lkssd9230-69-28 06:12:00* Test Item Value Reference Range Interpretation Comments Calcium Level (test code = 29973-9) 9.3 8.4-10.2 [facility] HospitalMagnesium Vxzaa8783-10-65 06:12:00* Test Item Value Reference Range Interpretation Comments Magnesium Level (test code = 50071-8) 2.5 1.3-2.1 H [facility] HospitalB-Type Natriuretic Ysdojic7148-71-03 06:10:00* Test Item Value Reference Range Interpretation Comments B-Type Natriuretic Peptide (test code = 49284-0) 66.3 0-100 [facility] HospitalHemoglobin A1c Yoforby3384-43-28 05:57:00 * Test Item Value Reference Range Interpretation Comments Hemoglobin A1c Percent (test code = Hemoglobin A1c Percent) 7.4 4.0-7.0 H [facility] HospitalWhite Blood Qbjdm1331-24-38 05:44:00* Test Item Value Reference Range Interpretation Comments White Blood Count (test code = 6690-2) 10.93 4.8-10.8 H VERIFIED PREVIOUS RESULTSEl [facility]o [facility] HospitalRed Blood Count 2019-04-16 05:44:00* Test Item Value Reference Range Interpretation Comments Red Blood Count (test code = 789-8) 4.67 4.3-5.7 [facility] HospitalHemoglobin2019-07-19 05:44:00* Test Item Value Reference Range Interpretation Comments Hemoglobin (test code = 64590-6) 14.3 14.0-18.0 [facility] HospitalHematocrit2019-07-19 05:44:00* Test Item Value Reference Range Interpretation Comments Hematocrit (test code = 4544-3) 42.7 38.2-49.6 [facility] HospitalMean Corpuscular Czeeii3257-21-58 05:44:00* Test Item Value Reference Range Interpretation Comments Mean Corpuscular Volume (test code = 787-2) 91.4 81-99 VERIFIED PREVIOUS RESULTSEl [facility]o [facility] HospitalMean Corpuscular Ktphduaztv8470-75-02 05:44:00* Test Item Value Reference Range Interpretation Comments Mean Corpuscular Hemoglobin (test code = 785-6) 30.6 28-32 [facility] HospitalMean Corpuscular Hemoglobin Concent 2019-04-16 05:44:00* Test Item Value Reference Range Interpretation Comments Mean Corpuscular Hemoglobin Concent (test code = 786-4) 33.5 31-35 [facility] HospitalRed Cell Distribution Oykgq5478-92-60 05:44:00* Test Item Value Reference Range Interpretation Comments Red Cell Distribution Width (test code = 11301-4) 13.0 11.7 -14.4 [facility] HospitalPlatelet Yigbr3627-31-17 05:44:00* Test Item Value Reference Range Interpretation Comments Platelet Count (test code = 777-3) 290 140-360 [facility] HospitalNeutrophils (%) (Auto)2019-04-16 05:44:00 * Test Item Value Reference Range Interpretation Comments Neutrophils (%) (Auto) (test code = 69557-3) 89.9 38.7-80.0 H [facility] HospitalLymphocytes (%) (Auto)2019-04-16 05:44:00 * Test Item Value Reference Range Interpretation Comments Lymphocytes (%) (Auto) (test code = 736-9) 4.8 18.0-39.1 L [facility] HospitalMonocytes (%) (Auto)2019-04-16 05:44:00* Test Item Value Reference Range Interpretation Comments Monocytes (%) (Auto) (test code = 5905-5) 4.1 4.4-11.3 L [facility] HospitalEosinophils (%) (Auto)2019-04-16 05:44:00 * Test Item Value Reference Range Interpretation Comments Eosinophils (%) (Auto) (test code = 713-8) 0.0 0.0-6.0 [facility] HospitalBasophils (%) (Auto)2019-04-16 05:44:00* Test Item Value Reference Range Interpretation Comments Basophils (%) (Auto) (test code = 706-2) 0.1 0.0-1.0 [facility] HospitalIM GRANULOCYTES %2019-04-16 05:44:00* Test Item Value Reference Range Interpretation Comments IM GRANULOCYTES % (test code = IM GRANULOCYTES %) 1.1 0.0- 1.0 H [facility] HospitalNeutrophils # (Auto)2019-04-16 05:44:00* Test Item Value Reference Range Interpretation Comments Neutrophils # (Auto) (test code = 751-8) 9.8 2.1-6.9 H [facility] HospitalLymphocytes # (Auto)2019-04-16 05:44:00* Test Item Value Reference Range Interpretation Comments Lymphocytes # (Auto) (test code = 67451-5) 0.5 1.0-3.2 L [facility] HospitalMonocytes # (Auto)2019-04-16 05:44:00* Test Item Value Reference Range Interpretation Comments Monocytes # (Auto) (test code = 742-7) 0.5 0.2-0.8 [facility] HospitalEosinophils # (Auto)2019-04-16 05:44:00* Test Item Value Reference Range Interpretation Comments Eosinophils # (Auto) (test code = 711-2) 0.0 0.0-0.4 [facility] HospitalBasophils # (Auto)2019-04-16 05:44:00* Test Item Value Reference Range Interpretation Comments Basophils # (Auto) (test code = 704-7) 0.0 0.0-0.1 [facility] HospitalAbsolute Immature Granulocyte (auto 2019-04-16 05:44:00* Test Item Value Reference Range Interpretation Comments Absolute Immature Granulocyte (auto (obdulio t code = Absolute Immature Granulocyte (auto) 0.12 0-0.1 H [facility] HospitalBedside Meaabsk9053-92-74 20:17:00* Test Item Value Reference Range Interpretation Comments Bedside Glucose (test code = 92674-5) 250 70-120 H Meter ID: [id number] [facility]Blood [facility] 2019-04-15 08:55:00* Test Item Value Reference Range Interpretation Comments Blood Culture (test code = 89410122) NO GROWTH AFTER 24 HOURS [facility] HospitalCT ABDOMEN/PELVIS U4740-42-97 09:57:00 [place] [address] Patient Name: OZ PRIETO MR #: [id number] : Age/Sex: 59/M Req #: [id number] Adm Physician: Ordered by: MICHELLE KWONG FIELD SUPPORT REPRESENTATIVE Report #: [id number] Location: ER Room/Bed: Procedure: 716 CT/CT ABDOMEN/PELVIS W Exam Date: 04/14/19 Alejandra otoole Time: 0850 REPORT STATUS: Signed EXAM: CT Abdomen and Pelvis WITH intravenous contrast INDICATION: Abdo lea pain COMPARISON: None. TECHNIQUE: Abdomen and pelvis were scanne d utilizing a multidetector helical scanner from the lung base to the pubic sy mphysis after administration of IV contrast. Coronal and sagittal reformations were obtained. Routine protocol was performed. Scan was performed when during portal venous phase. IV CONTRAST: 100 and mL of Isovue-370 ORAL CONTRAST: 400 cc water RADIATION DOSE: Total DLP: (DLP x 0.015 x size factor) mGy*cm Estimated effective dose: (DLP x 0.015 x size factor) mSv Dose modulation, iterative reconstruction, and/or weight based adj ustment of the mA/kV was utilized to reduce the radiation dose to as low as re asonably achievable. FINDINGS: LINES AND TUBES: None LOWER THORAX : There is extensive airspace consolidation in the right lower lobe compatible with pneumonia. No pleural effusion. Heart size normal. HEPATOBILIARY: No focal hepatic lesions. Low density adjacent to the falciform ligament compatib le with localized fatty infiltration. No biliary ductal dilatation. The gallb ladder appears unremarkable. SPLEEN: No splenomegaly. PANCREAS: No focal masses or ductal dilatation. ADRENALS: No adrenal nodules. KIDNEYS/ URETERS: No hydronephrosis, stones, or solid mass lesions. PELVIC ORGANS/BLADD ER: Urinary bladder has an unremarkable appearance. No discrete abnormal mass or fluid collection in the pelvis. PERITONEUM / RETROPERITONEUM: No free ai r or fluid. LYMPH NODES: No dominant lymph node mass is seen in the abdomen, retroperitoneum or pelvis. VESSELS: Abdominal aorta is atherosclerotic with s cattered calcified plaque extending into the iliac arteries. There is calcifie d plaque in the proximal SMA producing approximately 30% narrowing. IVC and po rtal system appear unremarkable. GI TRACT: There are scattered diverticul a of the descending colon and sigmoid. No bowel dilatation or evidence for obs truction. The appendix has a normal appearance but extends into a right inguin al hernia. BONES AND SOFT TISSUES: Superficial surrounding soft tissue show s the presence of a right inguinal hernia containing fat. The appendix extends into the hernia. There is no dilatation or inflammatory stranding. Superficial surrounding soft tissue otherwise unremarkable. No acute or suspicious bony lesions. Nonaggressive appearing sclerotic focus above the left acetabulum c ompatible with bone island. IMPRESSION: 1. Extensive right lower lobe pneumonia. 2. Right ankle hernia containing fat. A portion of the appendix extends into the hernia. There is no dilatation of the appendix or inflammato ry stranding. Signed by: Dr. Yolanda Beasley M.D. on 04/14/2019 11:33 AM Dictated By: YOLANDA BEASLEY MD 1133 Transcribed By: LUZ MARIA on 04/14/19 1133 COPY TO: MICHELLE KWONG NP Creatine Kinase RM2026-17-48 08:37:00* Test Item Value Reference Range Interpretation Comments Creatine Kinase MB (test code = 10675-2) 2.00 0-5.0 [facility] HospitalTroponin V3822-12-43 08:37:00* Test Item Value Reference Range Interpretation Comments Troponin I (test code = EVG4976) 0.020 0-0.300 [facility] HospitalUrine EGM9362-76-73 08:35:00* Test Item Value Reference Range Interpretation Comments Urine WBC (test code = 5821-4) 0-5 0-5 [facility] HospitalUrine NPG9530-91-21 08:35:00* Test Item Value Reference Range Interpretation Comments Urine RBC (test code = 87270-9) NONE 0-5 [facility] HospitalUrine Kpgntuqy4609-69-79 08:35:00* Test Item Value Reference Range Interpretation Comments Urine Bacteria (test code = 25907-1) MODERATE NONE H [facility] HospitalUrine Epithelial Fzxgt8720-20-30 08:35:00 * Test Item Value Reference Range Interpretation Comments Urine Epithelial Cells (test code = 99039-9) RARE NONE [facility] HospitalCreatine Djraom6516-45-79 08:31:00* Test Item Value Reference Range Interpretation Comments Creatine Kinase (test code = 2157-6) 157 30-200 [facility] HospitalAmylase Xbyba9696-49-71 08:31:00* Test Item Value Reference Range Interpretation Comments Amylase Level (test code = 1798-8) 58 25-125 [facility] HospitalLipase2019-07-17 08:31:00* Test Item Value Reference Range Interpretation Comments Lipase (test code = 3040-3) 25 8-78 [facility] HospitalUrine Lnetl6845-64-21 08:21:00* Test Item Value Reference Range Interpretation Comments Urine Color (test code = 5778-6) YELLOW YELLOW [facility] HospitalUrine Kflyfln2599-31-48 08:21:00* Test Item Value Reference Range Interpretation Comments Urine Clarity (test code = 19123-9) CLEAR CLEAR [facility] HospitalUrine Specific Hwxacnb5914-86-54 08:21:00 * Test Item Value Reference Range Interpretation Comments Urine Specific [place] (test code = 5811-5) 1.025 1.010-1.02 5 [facility] HospitalUrine pX0916-24-05 08:21:00* Test Item Value Reference Range Interpretation Comments Urine pH (test code = 23739-4) 6 5-7 [facility] HospitalUrine Leukocyte Bcydvbak3624-89-12 08:21:00* Test Item Value Reference Range Interpretation Comments Urine Leukocyte Esterase (test code = 38379-8) NEGATIVE NEGATIV E [facility] HospitalUrine Bvvvtui0173-93-28 08:21:00* Test Item Value Reference Range Interpretation Comments Urine Nitrite (test code = 85169-7) NEGATIVE NEGATIVE [facility] HospitalUrine Qqcsdeh4342-55-24 08:21:00* Test Item Value Reference Range Interpretation Comments Urine Protein (test code = 98708-6) TRACE NEGATIVE H [facility] HospitalUrine Glucose (UA)2019-04-14 08:21:00* Test Item Value Reference Range Interpretation Comments Urine Glucose (UA) (test code = 55806-3) 3+ NEGATIVE [facility] HospitalUrine Kcbsvwk7089-93-35 08:21:00* Test Item Value Reference Range Interpretation Comments Urine Ketones (test code = 54418-8) 1+ NEGATIVE H [facility] HospitalUrine Zyocrwbfgxuc5292-72-99 08:21:00* Test Item Value Reference Range Interpretation Comments Urine Urobilinogen (test code = 52858-0) 1 0.2-1 [facility] HospitalUrine Ybxmyxuat4878-84-86 08:21:00* Test Item Value Reference Range Interpretation Comments Urine Bilirubin (test code = 1977-8) SMALL NEGATIVE [facility] HospitalUrine Hldvl6529-34-97 08:21:00* Test Item Value Reference Range Interpretation Comments Urine Blood (test code = 95331-1) NEGATIVE NEGATIVE [facility] HospitalTotal Gppzeftuv5361-65-53 08:11:00* Test Item Value Reference Range Interpretation Comments Total Bilirubin (test code = 1975-2) 0.8 0.2-1.2 [facility] HospitalAspartate Amino Transf (AST/SGOT) 2019-04-14 08:11:00* Test Item Value Reference Range Interpretation Comments Aspartate Amino Transf (AST/SGOT) (test code = Aspartate Amino Transf (AST/SGOT)) 30 5-34 [facility] HospitalAlanine Aminotransferase (ALT/SGPT) 2019-04-14 08:11:00* Test Item Value Reference Range Interpretation Comments Alanine Aminotransferase (ALT/SGPT) (test code = 1742-6) 22 0-55 [facility] HospitalTotal Klucinl3956-91-64 08:11:00* Test Item Value Reference Range Interpretation Comments Total Protein (test code = 2885-2) 7.6 6.5-8.1 [facility] HospitalAlbumin2019-07-17 08:11:00* Test Item Value Reference Range Interpretation Comments Albumin (test code = 1751-7) 2.7 3.5-5.0 L [facility] HospitalGlobulin2019-07-17 08:11:00* Test Item Value Reference Range Interpretation Comments Globulin (test code = 61095-8) 4.9 2.3-3.5 H [facility] HospitalAlbumin/Globulin Depsj4065-58-90 08:11:00 * Test Item Value Reference Range Interpretation Comments Albumin/Globulin Ratio (test code = 1759-0) 0.6 0.8-2.0 L [facility] HospitalAlkaline Rkfscqecsij5114-06-68 08:11:00* Test Item Value Reference Range Interpretation Comments Alkaline Phosphatase (test code = 6768-6) 62 40-150 [facility] 07:58:00 [facility] [address] [address] Patient Name: OZ PRIETO MR #: [id number] : 1960 Age/Sex: 59/M Req #: [id number] Adm Physician: Ordered by: MICHELLE KWONG FIELD SUPPORT REPRESENTATIVE Report #: [id number] Location: ER Room/Bed: Procedure: [id number] -[id number] DX/CHEST SINGLE (PORTABLE) Exam Date: 04/14/19 Exam Time: 732 REPORT STATUS: Sig kiel EXAM: CHEST SINGLE (PORTABLE) DATE: 04/14/2019 7:05 AM INDICA TION: Cough, shortness of breath ERMD ORDER [id number] Y COMPARISON: None FINDINGS: Lines and tubes: None Heart size nor mal. There is patchy opacity at the right lung base, likely representing atelectasis. No pleural effusion or pneumothorax. Upper abdomen unremarkabl e. No acute bony abnormality. There is marked degenerative change at the right shoulder. IMPRESSION: Patchy airspace opacity at the right lung base whi ch likely represents atelectasis. In the proper clinical setting, early right lower lobe pneumonia is also a consideration Signed by: Dr. Yolanda Beasley M.D. on 04/14/2019 8:00 AM Dictated By: YOLANDA BEASLEY MD 9 Transcribed By: LUZ MARIA on 799 COPY TO: MICHELLE KWONG FIELD SUPPORT REPRESENTATIVE Prothrombin [id number] 07:47:00* Test Item Value Reference Range Interpretation Comments Prothrombin Time (test code = 5902-2) 14.2 11.9-14.5 [facility] International Ratio 2019-04-14 07:47:00* Test Item Value Reference Range Interpretation Comments Prothromb Time International Ratio (test code = 6301-6) 1.05 Oral Anticoagulant Therapy INR Values:1. Low Intensity Therapy 1.5 - 2.02 . Moderate Intensity Therapy 2.0 - 3.03. High Intensity Therapy(1) 2.5 - 3. 54. High Intensity Therapy(2) 3.0 - 4.05. Panic Value INR > 5.0 [facility] Thromboplast Time 2019-04-14 07:47:00* Test Item Value Reference Range Interpretation Comments Activated Partial Thromboplast Time (test code = 34379-9) 33.9 23.8-35.5 [facility]
--- OUTSIDE RECORDS SUMMARY | 2020-04-27 19:44 | XMS REPORT | Clinical Summary ---
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) (Primary Dx); Charcot's joint of right foot 01/11/2020 Orders Only Radiology 12/20/2019 Travel 12/09/2019 Travel [facility] 11/19/2019 Orders Only Orthopedic Surgery Anders Alvarado MD 10/22/2019 Orders Only Orthopedic Surgery Anders Alvarado MD Charcot's joint of right foot (Primary D x); Plantar fasciitis, right 10/21/2019 Office Visit Orthopedic Surgery Anders Alvarado MD 09/29/2019 [facility] Anders Alvarado [...] ot Implanted Type Area Manufactur er 08/28/2023 [id number] / / [id number] Colag 2 Screw, 4.0 X 34.0 Mm - IPM Right: Foot [id number] [employer] Implanted: Qty: 1 on 07/20/2019 by DEVICES Anders Alvarado MD at [facility] P50 [id number] / / R3con Non-Locking Plate Screw, 4.2 IPM Rig ht: Foot X 24mm - [id number] IMPLANT Implanted: Qty: 1 on 07/20/2019 by Anders Schreiber MD at [facility] P26 [id number] / / LOT NA Joust Beam Cannulated Headless Full IPM Ri ght: Foot Thd 5.0 X 95mm - [id number] IMPLANT Implanted: Qty: 1 on 07/20/2019 by Anders Schreiber MD at [facility] P26 [id number] / / LOT NA Joust [employer] Cannulated Headless Full IPM Ri ght: Foot Thd 5.0 X 95mm - [id number] IMPLANT Implanted: Qty: 1 on 07/20/2019 by Anders Schreiber MD at [facility] P99 [id number] / / LOT NA K-Wire Single Ended Trocar Tip IPM Right: Foot Threaded 1.6 X 230mm - [id number] IMPLANT Implanted: Qty: 1 on 07/20/2019 by Anders Schreiber MD at [facility] P99 [id number] / / LOT NA K-Wire Single Ended Trocar Tip IPM Right: Foot Threaded 1.6 X 230mm - [id number] IMPLANT Implanted: Qty: 2 on 07/20/2019 by Anders Schreiber MD at [facility] 08/28/2022 P65 [id number] / / [id number] Colag Screw, 4.0 X 38.0 Mm - IPM Right: Foot I [id number] [employer] Implanted: Qty: 1 on 07/20/2019 by Anders Schreiber MD at [facility] P06 [id number] / / K-WireGisell Trocar, Smooth, .062x7" IPM Right: Foot [id number] - [id number] [employer] Implanted: Qty: 2 on 07/20/2019 by Anders Schreiber MD at [place] [id number] / / Lag Screw Drill, Cannulated, 2.7 - IPM Right: Foot [id number] [employer] Implanted: Qty: 1 on 07/20/2019 by DEVICES Anders Alvarado MD at [facility] P53 [id number] / / LOT NA Medial Column Charcot Arch Plate, IPM Righ t: Foot Nc-1st Met, 2.0mm Thk, Right, Lg - IMPLANT [id number] DEVICES Implanted: 07/20/2019 at [facility] (Quantity not on file) P50 [id number] / / R3con Locking Plate Screw, 4.2 X IPM Right : Foot 12mm - [id number] IMPLANT Implanted: Qty: 1 on 07/20/2019 by Anders Schreiber MD at [facility] P50 [id number] / / R3con Locking Plate Screw, 4.2 X IPM Right : Foot 18mm - [id number] IMPLANT Implanted: Qty: 3 on 07/20/2019 by Anders Schreiber MD at [facility] P50 353 [id number] / / R3con Locking Plate Screw, 4.2 X IPM Right : Foot 20mm - [id number] IMPLANT Implanted: Qty: 1 on 07/20/2019 by Anders Schreiber MD at [facility] P50 [id number] / / R3con Locking Plate Screw, 4.2 X IPM Right : Foot 38mm - [id number] IMPLANT Implanted: Qty: 2 on 07/20/2019 by Anders Schreiber MD at [facility] [id number] / / 4.2mm X 40mm Gorilla R3con Locking Ortho Right: Foot PAR[employer]ON Plate Screw Scre[employer] Implanted: Qty: 1 on 07/20/2019 by Anders Alvarado MD at [facility] 12/28/2023 [id number] / [id number] / [id number] Graft Bone Actifuse [id number] - Surgical Right: Foot SOSA [id number] - [id number] Implants; BI[employer]ENCE Implanted: Qty: 1 on 07/20/2019 by Expand[employer]; Anders Alvarado MD at [facility] Extenders; [facility] Surgical Wires Device Identifier Shelf Expiration Date Model / Serial / L ot Explanted Type Area Manufactur er P26 [id number] / / LOT NA Joust Beam Solid Headless Full Thd IPM Rig ht: Foot 5.0 X 95mm - [id number] IMPLANT Implanted: 07/20/2019 (Quantity not DEVICES on [...] 10/21/2019 Charcot's joint 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 Good mu-ism of longitudinal arch height noted. Performing Organization Address [facility] Ph one Number [employer] [address] [place] [address] * POC glucose (07/21/2019 7:28 AM CDT) Only the most recent of 5 results within the time period is included. POC glucose 116 (H) 65 - 99 mg/dL PATERSON Comment: [facility] Notified RN HOSPITAL Meter ID: [id number] Apprise Counselor: Mike Ricks Specimen Performing Organization Address City/[facility] Ph one Number [facility] DEPARTMENT OF [address] [place] [address] PATHOLOGY AND GENOMIC MEDICINE PATERSON [facility] [address] [place] [address] HOSPITAL * Airway (07/20/2019 1:16 PM CDT) Narrative Performed At Jonathan Farooq CRNA 07/20/2019 1: 17 PM Airway Date/Time: 07/20/2019 1:00 PM Performed by: Jonathan Farooq CRNA Authorized by: Amol Llamas M D Location: OR Urgency: Elective Difficult Airway: No Resident/AIR CONTROL/ANTI AIR WARFARE OFFICER/AA: Jonathan Farooq CRNA Performed by: resident/SISI/AA Preoxygenated [...] CIGNA xxxxxxxxxxx 2014-P [place] [id number] Mello Dorsey Personal/F Self 1960 [address] (Home) [place] [address] Advance Directives For more information, please contact: [phone] 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
--- OUTSIDE RECORDS SUMMARY | 2020-04-27 19:45 | XMS REPORT | Continuity of Care Document ---
Author Author [facility] t Organization [facility] Address [address] [place] [address] Phone Unavailable Care Team Providers Care Revolving Field Assembler Name Role Phone NO, PCP PCP Unavailable AYDE VARNER Attphys Unavailable Gisell Alvarado MD Attphys Medrano, Ashwini Attphys Unavailable Robert IMPRESS ASSOCIATE, Karen De La Cruz Attphys Angeles NARANJO, Jessi Attphys Unavailable Muriel WINKLER, Forrest Carmichael Attphys Lorie Mcgovern APRN Attphys Massiel Orellana MA Attphys Unavailable FEMI POTTS Attphys Unavailable AYDE VARNER Admphys Unavailable ANDERS ALVARADO Admphys Unavailable Payers Payer Name Policy Type Policy Number Effective Date Expiration Date Telma moore CIGNACIGNA LOCAL PLUS/SUREFITxxxxxxxxxxx2014-PresentO xxxxxxxxxxx 2014 00:00:00 Jesus Padilla o [id number] 2014 00:00:00 [facility] Problems Condition Name Condition Details Condition [...] pneumonia Right lower lobe pneumonia Problem Active [facility] Allergies, Adverse Reactions, Alerts Allergy Name Allergy Type Status Severity Reaction(s) Onset Date Inacti ve Date Treating Clinician Comments Source No Known Allergies DA Active U 2016-05-30 00:00:00 [facility] Family History Family Member Diagnosis Comments Start [...] Frequency Signature (SIG) Comments Components Source HYDROcodone-acetaminophen ([place]) 7.5-325 mg per tablet 2020-01-13 00:00:00 2020-01-23 [...] 300 mg capsule 2019-07-21 11:07:23 Yes 300mg [id number] Take 300 mg by mouth 3 (three) [...] Each Tab.er.12h 2019-04-16 00:00:00 Yes Tejal Hawk Bindery Worker 1 Twice A Day as needed for Congestion [facility] Levaquin Levaquin 2019-04-16 00:00:00 Yes Tejal Hawk Bindery Worker 750 Daily [facility] Prednisone 10 Mg Tab Prednisone 10 Mg Tab 2019-04-16 00:00:00 Yes Tejal Hawk Bindery Worker 10 Use As Directed [facility] metFORMIN XR (GLUCOPHAGE-XR) 500 mg 24 hr tablet 2017-06-11 00:00:00 Yes TK 2 TS PO BID [facility] Gabapentin 300 Mg Capsule Gabapentin 300 Mg Capsule Yes 300 Three Times A Day [facility] Lisinopril 10 Mg Tablet Lisinopril 10 Mg Tablet Yes 10 Daily [facility] Metformin Hcl (Metformin Hcl Er) 500 Mg Tab.er.24h Met formin Hcl (Metformin Hcl Er) 500 Mg Tab.er.24h Yes 500 Twice A Day [facility] Sitagliptin Phosphate (Januvia) 100 Mg Tablet Sitaglip tin Phosphate (Januvia) 100 Mg Tablet Yes 100 Every Morning [facility] Tresiba Tresiba Yes 20 Bedtime [facility] Vital Signs Vital Name Observation Time Observation [...] GLUCOSE 2019-07-20 16:08:00 Anders Alvarado Met [facility]ariettaist [place] AN ELECTIVE SUPRAGLOTTIC AIRWAY 2019-07-20 13:16:10 Abdi Farooq [place] AN PERIPHERAL BLOCK PROCEDURE FOR PAIN 2019-07-20 12:57:4 2 Amol Llamas ANESTHESIA PERIPHERAL BLOCK 2019-07-20 12:55:58 Amol Llamas FUSION, JOINT, ANKLE 2019-07-20 12:54:00 [facility] POC GLUCOSE 2019-07-20 09:08:00 Anders Alvarado [facility] POC GLUCOSE 2019-07-20 08:49:00 Anders Alvarado [facility] XR FOOT 3+ VW RIGHT 2019-06-07 08:50:13 Anders Alvarado Computed tomography of abdomen and pelvis with contrast 2018 00:00:00 MICHELLE KWONG [facility] Plan of Care Planned Activity Planned Date Details Comments Source Future Scheduled Test 2020-04-29 00:00:00 INFLUENZA VACCINE [code = INFLUENZA VACCINE] [facility] Future Scheduled Test 2009 00:00:00 COLONOSCOPY SCREEN ING [code = COLONOSCOPY SCREENING] [facility] Future Scheduled Test 2009 00:00:00 SHINGLES VACCINES (#1) [code = SHINGLES VACCINES (#1)] [facility] Future Scheduled Test 1969 00:00:00 DIABETIC FOOT EXAM [code = DIABETIC FOOT EXAM] [facility] Future Scheduled Test 1969 00:00:00 URINE MICROALBUMIN [code = URINE MICROALBUMIN] [facility] Future Scheduled Test 1959 00:00:00 DIABETIC RETINAL E YE EXAM [code = DIABETIC RETINAL EYE EXAM] [facility] Encounters Start Date/Time End Date/Time Encounter Type Admission Type [facility] Care Department Encounter ID Source 2020-01-13 00:00:00 2020-01-13 00:00:00 Outpatient ANDERS ALVARADO [facility] [id number] Jesus Garcia 2020-01-12 00:00:00 2020-01-12 00:00:00 Outpatient ANDERS ALVARADO [facility] [id number] Jesus Garcia 2019-11-29 00:00:2019-11-29 00:00:00 Outpatient ANDERS ALVARADO [facility] [id number] [facility] 2019-11-26 00:00:00 2019-11-26 00:00:00 Outpatient ANDERS ALVARADO [facility] [id number] [place] [facility] 2019-11-24 00:00:00 2019-11-24 00:00:00 Outpatient ANDERS ALVARADO [facility] [id number] [facility] 2019-07-20 00:00:00 2019-07-21 00:00:00 Outpatient ANDERS ALVARADO [facility] [id number] [facility] 2019-04-14 12:13:00 2019-04-16 07:00:00 Discharged Inpatient 1 FEMI POTTS [facility] [id number] [facility] Results Test Description Test Time Test Comments [...] reference range due to change in reagent. [id number] 10:20:00* Test Item Value Reference Range Interpretation Comments MAGNESIUM (test code = MAG) 2.1 mg/dL 1.8-2.4 N CBC W/AUTO [id number] 09:36:00* Test Item Value Reference Range Interpretation [...] code = NRBC#) 0.00 K/mm3 0.0-0.1 N [id number] 07:52:00* Test Item Value Reference Range Interpretation Comments GLUBED (test code = GLUBED) 146 mg/dL 74-106 H Performed by certified carpet yarn winder operator at [facility] [id number] 20:36:00* Test Item Value Reference Range Interpretation Comments GLUBED (test code = GLUBED) 158 mg/dL 74-106 H Performed by certified carpet yarn winder operator at [facility] [id number] 16:45:00* Test Item Value Reference Range Interpretation Comments GLUBED (test code = GLUBED) 146 mg/dL 74-106 H Performed by certified carpet yarn winder operator at [facility] [id number] 12:26:00* Test Item Value Reference Range Interpretation Comments GLUBED (test code = GLUBED) 123 mg/dL 74-106 H Performed by certified carpet yarn winder operator at [facility] [id number] 07:53:00* Test Item Value Reference Range Interpretation Comments GLUBED (test code = GLUBED) 182 mg/dL 74-106 H Performed by certified carpet yarn winder operator at [facility] - CT ABD PELVIS W/O [id number] 22:06:00 Name: OZ PRIETO [facility] : 1960 Age/S: 60 / M [address] [facility] Unit #: [id number] Loc: [place] [address] Phys: Deya Luong MD Acct: [id number] Dis Date: Status: ADM IN PHONE #: [phone] Exam Date: 03/30/20202144 FAX #: [phone] Reason: RULE OUT APPENDICITIS EXAMS: CPT CODE: [id number] CT ABD PELVIS W/O CONT 99286 REASON FOR EXAM: RULE OUT APPENDICITIS EXAM [...] 1 Signed Report (CONTINUED) Name: OZ PRIETO [facility] Janice jasmine : 1960 Age/S: 60 / M [address] Unit #: [id number] Loc: [place] [address] 4 Phys: Deya Luong MD Acct: [id number] Dis Date: Status: ADM IN PHONE #: [phone] Exam Date: 03/30/20202144 FAX #: [phone] Reason: RULE OUT APPENDICITIS EXAMS: CPT CODE: [id number] CT ABD PELVIS W/O CONT 26273 < Continued> Peritoneum and retroperitoneum: No free fluid or free air. No omental or mesenteric masses. No abnormal lymph nodes. Musculoskeletal structures and abdominal wall: Degenerative changes of the spine are again seen IMPRESSION: No signs of appendicitis. Heavy colonic stool burden. Near complete resolution of the right-sided perinephric fat stranding. Correlate with urinalysis for an infectious process. Location: [facility] at 2206 Reported and signed by: Wale Parikh MD CC: Oz Avelar MD; Deya Luong MD Technologist:Nicole Estrada RT(R); ANGIE Schwarz CTDI: DLP: Trnscb Date/Time: 03/30/2020 (2205) t.SDR.RR31 Orig Print D/T: S: 03/30/2020 (2209) PAGE 2 Signed Report [id number] 20:06:00* Test Item Value Reference Range Interpretation Comments GLUBED (test code = GLUBED) 199 mg/dL 74-106 H Performed by certified carpet yarn winder operator at [facility] BASIC METABOLIC [id number] 16:39:00* Test Item Value Reference Range Interpretation [...] CA) 8.3 mg/dL 8.5-10.1 L COMPREHENSIVE METABOLIC [id number] 16:39:00* Test Item Value Reference Range Interpretation [...] due to change in reagent. BASIC METABOLIC [id number] 16:30:00* Test Item Value Reference Range Interpretation [...] code = CA) mg/dL 8.5-10.1 COMPREHENSIVE METABOLIC [id number] 16:30:00* Test Item Value Reference Range Interpretation [...] = ALKP) IUnit/L 45-117 - US ABDOMEN [id number] 16:14:00 Name: OZ PRIETO [facility] : 1960 Age/S: 60 / M [address] [facility] Unit #: [id number] [place]: [place] [address] Phys: Deya Luong MD Acct: [id number] Dis Date: Status: ADM IN PHONE #: [phone] Exam Date: 03/30/2020 0862 FAX #: [phone] Reason: +mercado's sign EXAMS: CPT CODE: [id number] US ABDOMEN LTD 69085 REASON FOR EXAM: +mercado's sign EXAM ORDER [...] Sig kiel Report (CONTINUED) Name: OZ PRIETO [facility] : 1960 Age/S: 60 / M [address] [facility] Unit #: [id number] Loc: [place] [address] Phys: Deya Luong MD Acct: [id number] Dis Date: Status: ADM IN PHONE #: [phone] Exam Date: 03/30/2020 1558 FAX #: [phone] Reason: +mercado's sign EXAMS: CPT CODE: [id number] ABDOMEN LTD 13291 <Continued> Hepatobiliary system and portal vein are sonographically unremarkable. Specifically the sonographic Mercado sign is negative. Pancreas, aorta, and IVC are not visualized. Location: [facility] at 1614 Reported and signed by: Wale Parikh MD CC: Oz Avelar MD; Deya Luong MD Technologist: BENNIE GUZMAN RT(R),REJIME Trnhib Date/Time: 03/30/2020 (1613) t.SDR.RR31 Orig Print D/T: S: 03/30/2020 (1617) Probe: PAGE 2 Signed Report [id number] 15:55:00* Test Item Value Reference Range Interpretation Comments GLUBED (test code = GLUBED) 149 mg/dL 74-106 H Performed by certified carpet yarn winder operator at [facility] - RETRO [id number] 12:38:00 Name: OZ PRIETO [facility] : 1960 Age/S: 60 / M [address] Unit #: [id number] Loc: [place] [address] Phys: Deya Luong MD Acct: [id number] Dis Date: Status: ADM IN PHONE #: [phone] Exam Date: 03/30/2020 1144 FAX #: [phone] Reason: pyelonephritis still with pain EXAMS: CPT CODE: [id number] RETRO LTD 13157 HISTORY: Pyelonephritis and sepsis. COMPARISON: CT of [...] MD; Deya Luong MD Technologist: BENNIE GUZMAN RT(R),RDME Trnscb Date/Time: 03/30/2020 (1238) t.LYNR.TH4 Orig Print D/T: S: 03/30/2020 (0549) Probe: PAGE 1 Signed Report - XR ABDOMEN AP 1 V 2020-03-30 12:31:00 FAX: Oz Avelar MD [place]: B St: ADM FAX: Deya Luong MD Name: OZ PRIETO [facility] : 1960 Age/S: 60/M [address] Unit #: [id number] Loc: [place] [address] Phys: Deya Luong MD Acct: [id number] Dis Date: Status: ADM IN PHONE #: [phone] Exam Date: 03/30/2020 1206 FAX #: [phone] Reason: follow up EXAMS: CPT CODE: [id number] XR ABDOMEN AP 1 V 14579 HISTORY: Sepsis and pyelonephritis. COMPARISON: CT abdomen and pelvis from March 27, 2020. Location: [facility]. The upper abdomen is not included limiting evaluation. No bowel obstruction. Constipation. No pathologic calcifications. DJD of the lumbar spine. IMPRESSION: No bowel obstruction. Constipation. at 1231 Reported and signed by: Gus Thomas M.D. CC: Oz Avelar MD; Deya Luong MD Technologist: Nya Bates RT(R); Gina Fischer RT(R) Trnscrd Date/Time/By: 03/30/2020 (1231) : By: [email or web address] Orig Print D/T: S: 03/30/2020 (1231) PAGE 1 Signed Report [id number] 11:22:00* Test Item Value Reference Range Interpretation Comments GLUBED (test code = GLUBED) 250 mg/dL 74-106 H Performed by certified carpet yarn winder operator at [facility] [id number] 08:15:00* Test Item Value Reference Range Interpretation Comments GLUBED (test code = GLUBED) 149 mg/dL 74-106 H Performed by certified carpet yarn winder operator at [facility] [id number] 20:34:00* Test Item Value Reference Range Interpretation Comments GLUBED (test code = GLUBED) 232 mg/dL 74-106 H Performed by certified carpet yarn winder operator at [facility] [id number] 16:47:00* Test Item Value Reference Range Interpretation Comments GLUBED (test code = GLUBED) 196 mg/dL 74-106 H Performed by certified carpet yarn winder operator at [facility] [id number] 11:44:00* Test Item Value Reference Range Interpretation Comments GLUBED (test code = GLUBED) 223 mg/dL 74-106 H Performed by certified carpet yarn winder operator at [facility] BASIC METABOLIC [id number] 10:18:00* Test Item Value Reference Range Interpretation [...] code = CA) 8.3 mg/dL 8.5-10.1 L [id number] 10:18:00* Test Item Value Reference Range Interpretation Comments MAGNESIUM (test code = MAG) 2.1 mg/dL 1.8-2.4 N BASIC METABOLIC [id number] 10:10:00* Test Item Value Reference Range Interpretation [...] CALCIUM (test code = CA) mg/dL 8.5-10.1 [id number] 10:10:00* Test Item Value Reference Range Interpretation Comments MAGNESIUM (test code = MAG) mg/dL 1.8-2.4 CBC W/AUTO [id number] 10:03:00* Test Item Value Reference Range Interpretation [...] DIFF REQUIRED (test code = MDIFF) NO [id number] 08:31:00* Test Item Value Reference Range Interpretation Comments GLUBED (test code = GLUBED) 146 mg/dL 74-106 H Performed by certified carpet yarn winder operator at [facility] [id number] 20:50:00* Test Item Value Reference Range Interpretation Comments GLUBED (test code = GLUBED) 251 mg/dL 74-106 H Performed by certified carpet yarn winder operator at [facility] [id number] 19:10:00* Test Item Value Reference Range Interpretation Comments GLUBED (test code = GLUBED) 223 mg/dL 74-106 H Performed by certified carpet yarn winder operator at [facility] [id number] 12:03:00* Test Item Value Reference Range Interpretation Comments GLUBED (test code = GLUBED) 129 mg/dL 74-106 H Performed by certified carpet yarn winder operator at [facility] [id number] 10:46:00* Test Item Value Reference Range Interpretation Comments GLUBED (test code = GLUBED) 251 mg/dL 74-106 H Performed by certified carpet yarn winder operator at [facility] BASIC METABOLIC [id number] 06:13:00* Test Item Value Reference Range Interpretation [...] CA) 8.4 mg/dL 8.5-10.1 L BASIC METABOLIC [id number] 06:03:00* Test Item Value Reference Range Interpretation [...] code = CA) mg/dL 8.5-10.1 CBC W/AUTO [id number] 04:58:00* Test Item Value Reference Range Interpretation [...] DIFF REQUIRED (test code = MDIFF) NO [id number] 23:55:00* Test Item Value Reference Range Interpretation Comments GLYCOSYLATED HEMOGLOBIN (HA1C) (test code = GLYHGB) 7.5 % HbA1 SUGGESTED DIAGNOSIS: HbA1C (%) Diabetic >6.4Prediabetes 5.7 - 6.4Normal <5.7 ESTIMATED AVERAGE GLUCOSE (test code = EAG) 169 MG/DL - CTA CHEST FOR [id number] 23:36:00 Name: OZ PRIETO [facility] : 1960 Age/S: 60 / M [address] Unit #: [id number] Loc: [place] [address] Phys: Iraida Perkins IMPRESS ASSOCIATE Acct: [id number] Dis Date: Status: ADM IN PHONE #: [phone] Exam Date: 03/27/20202309 FAX #: [phone] Reason: SOB, r/o PE EXAMS: CPT CODE: [id number] [place] [address] HISTORY: Chest pain, evaluate for pulmonary embolus. [...] 6 month follow-up chest CT recommended. at 9352 Reported and signed by: Angie Light MD PAGE 1 Signed Report (CONT INUED) Name: OZ PRIETO [facility] : 1960 Age/S: 60 / M [place] Unit #: [id number] Loc: [place] [address] Phys: Iraida Bone IMPRESS ASSOCIATE Acct: [id number] Dis Date: Status: ADM IN FABIÁN NE #: [phone] Exam Date: 03/27/2020 2310 FAX #: [phone] Reason: SOB, r/o PE EXAM S: CPT CODE: [id number] [place] [address] <Continued> CC: Nina Andrea MD; Iraida Perkins NP Technologist:ARTURO DEL RIO(R)(CT); PRESLEY CTDI: DLP: Trnscb Date/Time: 03/27/2020 (2335) t.LYNR.RXC2 Orig Print D/T: S: 03/27/2020 (2338) PAGE 2 Signed Report [id number] 23:06:00* Test Item Value Reference Range Interpretation Comments GLUBED (test code = GLUBED) 118 mg/dL 74-106 H Performed by certified carpet yarn winder operator at [facility] Coronavirus 2019 nCoV [id number] 18:47:00* Test Item Value Reference Range Interpretation Comments Coronavirus 2019 nCoV Bedside (test code = [id number]) Negative Is patient requiring admission or transfer? YIndication for rapid COVID-19 testi ng: High Clinical Suspicion- CT ABD PELVIS W/O [id number] 16:35:00 Name: OZ PRIETO [facility] : 1960 Age/S: 60 / M [address] [facility] Unit #: [id number] Loc: [place] [address] Phys: Paulie Sharpe MD Acct: [id number] Dis Date: Status: PRE ER PHONE #: [phone] Exam Date: 03/27/2020 1610 FAX #: [phone] Reason: BACK PAIN, FEVER EXAMS: CPT CODE: [id number] CT ABD PELVIS W/O CONT 11392 REASON FOR EXAM: BACK PAIN, FEVER EXAM [...] 1 Signed Report (CONTINUED) Name: OZ PRIETO [facility] : 1960 Age/S: 60 / M [address] [facility] Unit #: [id number] Loc: [place] [address] Phys: Paulie Sharpe MD Acct: [id number] Dis Date: Status: PRE ER PHONE #: [phone] Exam Date: 03/27/2020 1610 FAX #: [phone] Reason: BACK PAIN, FEVER EXAMS: CPT CODE: [id number] CT ABD PELVIS W/O CONT 09558 < Continued> changes are present in the [...] (1635) tCHANCER.RR31 Orig Print D/T: S: 03/27/2020 (4702) PAGE 2 Signed Report [id number] 16:30:00* Test Item Value Reference Range Interpretation Comments D-DIMER (test code = DDIMER) 1010 ng/ml < 600 HH Results called to CASTRO BRIAN by [email or web address] 03/27/20 1630Critical results verified and read back by Nurse? Y C REACTIVE [id number] 16:09:00* Test Item Value Reference Range Interpretation Comments C REACTIVE PROTEIN (test code = CRP) > 25 0.00-5.00 H B-TYPE NATRIURETIC [id number] 15:53:00* Test Item Value Reference Range Interpretation Comments B-TYPE NATRIURETIC PEPTIDE (test code = BNP) 122 pg/mL 0-100 H BASIC METABOLIC [id number] 15:48:00* Test Item Value Reference Range Interpretation [...] CA) 8.7 mg/dL 8.4-10.2 N HEPATIC FUNCTION [id number] 15:48:00* Test Item Value Reference Range Interpretation [...] code = ALKP) 87 U/L 38-126 N [id number] 15:48:00* Test Item Value Reference Range Interpretation Comments TROPONIN-I (test code = TROPI) <0.015 ng/mL 0.00-0.056 N LACTIC [id number] 15:47:00* Test Item Value Reference Range Interpretation Comments LACTIC ACID (test code = LACT) 1.6 MMOL/L 0.4-1.9 N BASIC METABOLIC [id number] 15:40:00* Test Item Value Reference Range Interpretation [...] CA) 8.7 mg/dL 8.4-10.2 N HEPATIC FUNCTION [id number] 15:40:00* Test Item Value Reference Range Interpretation [...] TOTAL (test code = ALKP) IUnit/L 45-117 [id number] 15:40:00* Test Item Value Reference Range Interpretation Comments TROPONIN-I (test code = TROPI) ng/mL 0-0.045 CBC W/AUTO [id number] 15:35:00* Test Item Value Reference Range Interpretation [...] REQUIRED (test code = MDIFF) NO URINALYSIS [id number] 15:29:00* Test Item Value Reference Range Interpretation [...] Urine Source? Clean Catch- XR CHEST 1 [id number] 15:21:00 Name: OZ PRIETO [facility] : 1960 Age/S:60 /M [address] [facility] Unit#:[id number] Loc: [place] [address] Phys: Paulie Sharpe MD Dis Date: PHONE #: [phone] Status: PRE ER FAX #: [phone] Exam Date: 03/27/2020 Reason: COUGH, DYSPNEA EXAMS: CPT CODE: [id number] XR CHEST 1 V 17447 REASON FOR EXAM: COUGH, DYSPNEA Exam Order [...] limits. IMPRESSION: No acute cardiopulmonary process. Location: [facility] at 1521 Reported and signed by: Wale Parikh MD CC: Paulie Sharpe MD Technologist: Jennifer Foley Trnscrpt Data: 03/27/2020 (1521) t.SDR.RR31 Orig Print D/T: S: 03/27/2020 (1525) PAGE 1 Signed Report URINALYSIS [id number] 15:13:00* Test Item Value Reference Range Interpretation [...] HPF NONE Urine Source? Clean CatchCHEST 2 [id number] 13:10:00 [place] [address] Patient Name: OZ PRIETO MR #: [id number] : 1960 Age/Sex: 60/M Req #: [id number] Adm Physician: AYDE VARNER MD Ordered by: BRODERICK MATTHEWS MD Report #: [id number] Location: [facility] Room/Bed: [facility] Procedure: DX/CHEST 2 VIEWS Exam Date: 03/15/20 Exam Time: 1243 REPORT STATUS: Signed TECHNIQUE: Frontal and lateral views of the chest. INDICATION: conestion [id number] 12 43 COMPARISON: Prior day. IMPRESSION: Lines and hardware: Stable. Heart and mediastinum: Stable. Lungs and pleura: Stable minimal bibasilar hazy airspace opacities. No pleural effusion. No pneumothorax. Soft tissues and bones: No acute abnormality. Signed by: Jean Carlos Muonz MD on 03/15/2020 1:11 PM Dictated By: JEAN CARLOS MUNOZ DO 10 Transcribed By: LUZ MARIA on 03/15/201310 COPY TO: BRODERICK MATTHEWS MD RENAL RETROPERITONEAL [id number] 11:12:00 [place] [address] Patient Name: OZ PRIETO MR #: [id number] : 1960 Age/Sex: 60/M Req #: [id number] Adm Physician: AYDE VARNER MD Ordered by: BRODERICK MATTHEWS MD Report #: [id number] Location: [facility] Room/Bed: [facility] Procedure: [id number] US/US AIXA L RETROPERITONEAL COMP Exam Date: 03/15/20 Exam Time : 1044 REPORT STATUS: Signed HIS TORY: [id number] ELEVATED CREATININE COMPARISON: None. T ECHNIQUE: [...] BRODERICK MATTHEWS MD CHEST SINGLE (PORTABLE)2020-03-14 11:34:00 [place] [address] Patient Name: OZ PRIETO MR #: [id number] : 1960 Age/Sex: 60/M Req #: [id number] Adm Physician: AYDE VARNER MD Ordered by: BEAU CARR DO Report #: [id number] Location: [facility] Room/Bed: [place] [address] Procedure: [id number] DX/CH EST SINGLE (PORTABLE) Exam Date: 03/14/20 [...] 1135 COPY TO: BEAU CARR DO POC [id number] 07:30:39* Test Item Value Reference Range Interpretation Comments POC glucose (test code = 65553-7) 116 mg/dL 65-99 H TM[facility] Notified RNMeter ID: [id number]: Mike Ricks Lab Interpretation (test code = 67753-8) Abnormal [place] [id number] 13:16:10Jonathan Farooq CRNA 07/20/2019 1:17 PMAirwayDate/Time: 07/20/2019 1:00 PMPerformed by: Jonathan Farooq CRNAAuthorized by: Amol Llamas MD Location: ORUrgency: ElectiveDifficult Airway: No Resident/LEASE BROKER/AA: Jonathan Farooq CRNAPerformed by: resident/LEASE BROKER/AAPreoxygenated with 100% O2: Yes C-spine Precautions Maintained Throughout: No Mask Ventilation: Not attemptedFinal Airway Type: Supraglottic airwayFinal LMA: Air - QLMA Size: 5Number of Attempts at Approach: 2 Igel insertion with low TV, changed to Air-Q LMA with good TV.Smooth and atraumatic LMA insertion [place] [facility] [id number] 12:57:42Amol Llamas MD 07/20/2019 1:15 PMPeripheral BlockPerformed [...] tolerated procedure wellNotes: No issu es VSS 97%132/340735 [place] [facility] [id number] 12:55:58Amol Llamas MD 07/20/2019 12:57 PMPeripheral BlockPerformed [...] tolerated procedure wellNotes: Lalo lopez Jesus Torres [id number] 06:22:00* Test Item Value Reference Range Interpretation Comments Free Thyroxine (test code = 3024-7) 1.28 0.8-1.8 [facility] HospitalThyroid Stimulating Hormone (TSH) 2019-04-16 06:22:00* Test Item Value Reference Range Interpretation Comments Thyroid Stimulating Hormone (TSH) (test code = 99956-5) 1.683 0.350-4.940 [facility] HospitalDifferential Total Cells Counted 2019-04-16 06:21:00* Test Item Value Reference Range Interpretation Comments Differential Total Cells Counted (test code = Differen tial Total Cells Counted) 100 [facility] HospitalNeutrophils % (Manual)2019-04-16 06:21:00 * Test Item Value Reference Range Interpretation Comments Neutrophils % (Manual) (test code = 92563-9) 88 40-74 H [facility] HospitalLymphocytes % (Manual)2019-04-16 06:21:00 * Test Item Value Reference Range Interpretation Comments Lymphocytes % (Manual) (test code = 737-7) 8 19-48 L [facility] HospitalMonocytes % (Manual)2019-04-16 06:21:00* Test Item Value Reference Range Interpretation Comments Monocytes % (Manual) (test code = 744-3) 4 3.4-9.0 [facility] HospitalPlatelet Ovcuptjd2795-34-47 06:21:00* Test Item Value Reference Range Interpretation Comments Platelet Estimate (test code = 93682-1) ADEQUATE [facility] HospitalPlatelet Morphology Cazaudv3401-35-98 06:21:00* Test Item Value Reference Range Interpretation Comments Platelet Morphology Comment (test code = 10692-8) NORMAL [facility] HospitalAnisocytosis2019-07-19 06:21:00* Test Item Value Reference Range Interpretation Comments Anisocytosis (test code = 702-1) SLIGHT [facility] HospitalMacrocytosis2019-07-19 06:21:00* Test Item Value Reference Range Interpretation Comments Macrocytosis (test code = 738-5) SLIGHT [facility] HospitalRed Cell Morphology Tlnnaan6886-42-25 06:21:00* Test Item Value Reference Range Interpretation Comments Red Cell Morphology Comment (test code = 6742-1) [facility]AL [facility] Rxxbd0561-26-26 06:12:00* Test Item Value Reference Range Interpretation Comments Sodium Level (test code = 2951-2) 136 136-145 [facility] HospitalPotassium Bznnl4368-94-29 06:12:00* Test Item Value Reference Range Interpretation Comments Potassium Level (test code = 2823-3) 4.0 3.5-5.1 [facility] HospitalChloride Rkbtk1211-11-65 06:12:00* Test Item Value Reference Range Interpretation Comments Chloride Level (test code = 2075-0) 100 98-107 [facility] HospitalCarbon Dioxide Fuhdv7047-68-40 06:12:00* Test Item Value Reference Range Interpretation Comments Carbon Dioxide Level (test code = 2028-9) 26 22-29 [facility] HospitalAnion Cbt7260-27-50 06:12:00* Test Item Value Reference Range Interpretation Comments Anion Gap (test code = 04244-6) 14.0 8-16 [facility] HospitalBlood Urea Bzicjdfs9733-83-57 06:12:00* Test Item Value Reference Range Interpretation Comments Blood Urea Nitrogen (test code = 3094-0) 31 7-26 H [facility] HospitalCreatinine2019-07-19 06:12:00* Test Item Value Reference Range Interpretation Comments Creatinine (test code = 2160-0) 0.88 0.72-1.25 [facility] HospitalBUN/Creatinine Jjfhg2747-85-26 06:12:00* Test Item Value Reference Range Interpretation Comments BUN/Creatinine Ratio (test code = 3097-3) 35 6-25 H [facility] HospitalEstimat Glomerular Filtration Rate 2019-04-16 06:12:00* Test Item Value Reference Range Interpretation Comments Estimat Glomerular Filtration Rate (test code = 967884428) > 60 >60 Ranges were taken from the National Kidney Disease Education Program and the [facility] Kidney Foundation literature.Reference ranges:60 or greater: Lqycqy13-31 ( for 3 consecutive months): Chronic kidney disease 15 or less: Kidney failureMethodist Southlake HospitalGlucose Jssjf0808-39-39 06:12:00* Test Item Value Reference Range Interpretation Comments Glucose Level (test code = VUU0740) 174 74-118 H [facility] HospitalCalcium Afodj6798-00-15 06:12:00* Test Item Value Reference Range Interpretation Comments Calcium Level (test code = 61133-6) 9.3 8.4-10.2 [facility] HospitalMagnesium Xzbqq7130-18-11 06:12:00* Test Item Value Reference Range Interpretation Comments Magnesium Level (test code = 31899-7) 2.5 1.3-2.1 H [facility] HospitalB-Type Natriuretic Linrnup7253-73-83 06:10:00* Test Item Value Reference Range Interpretation Comments B-Type Natriuretic Peptide (test code = 08862-5) 66.3 0-100 [facility] HospitalHemoglobin A1c Cetobvj9569-45-84 05:57:00 * Test Item Value Reference Range Interpretation Comments Hemoglobin A1c Percent (test code = Hemoglobin A1c Percent) 7.4 4.0-7.0 H [facility] HospitalWhite Blood Dvyij4233-02-22 05:44:00* Test Item Value Reference Range Interpretation Comments White Blood Count (test code = 6690-2) 10.93 4.8-10.8 H VERIFIED PREVIOUS RESULTSMethodist Southlake HospitalRed Blood Count 2019-04-16 05:44:00* Test Item Value Reference Range Interpretation Comments Red Blood Count (test code = 789-8) 4.67 4.3-5.7 [facility] HospitalHemoglobin2019-07-19 05:44:00* Test Item Value Reference Range Interpretation Comments Hemoglobin (test code = 30704-0) 14.3 14.0-18.0 [facility] HospitalHematocrit2019-07-19 05:44:00* Test Item Value Reference Range Interpretation Comments Hematocrit (test code = 4544-3) 42.7 38.2-49.6 [facility] HospitalMean Corpuscular Owbqnz1160-47-68 05:44:00* Test Item Value Reference Range Interpretation Comments Mean Corpuscular Volume (test code = 787-2) 91.4 81-99 VERIFIED PREVIOUS RESULTSMethodist Southlake HospitalMean Corpuscular Tjtquqmbwj3835-84-75 05:44:00* Test Item Value Reference Range Interpretation Comments Mean Corpuscular Hemoglobin (test code = 785-6) 30.6 28-32 [facility] HospitalMean Corpuscular Hemoglobin Concent 2019-04-16 05:44:00* Test Item Value Reference Range Interpretation Comments Mean Corpuscular Hemoglobin Concent (test code = 786-4) 33.5 31-35 [facility] HospitalRed Cell Distribution Skvbq9589-70-62 05:44:00* Test Item Value Reference Range Interpretation Comments Red Cell Distribution Width (test code = 65495-4) 13.0 11.7 -14.4 [facility] HospitalPlatelet Mfwqq9211-40-55 05:44:00* Test Item Value Reference Range Interpretation Comments Platelet Count (test code = 777-3) 290 140-360 [facility] HospitalNeutrophils (%) (Auto)2019-04-16 05:44:00 * Test Item Value Reference Range Interpretation Comments Neutrophils (%) (Auto) (test code = 95543-4) 89.9 38.7-80.0 H [facility] HospitalLymphocytes (%) (Auto)2019-04-16 05:44:00 * Test Item Value Reference Range Interpretation Comments Lymphocytes (%) (Auto) (test code = 736-9) 4.8 18.0-39.1 L [facility] HospitalMonocytes (%) (Auto)2019-04-16 05:44:00* Test Item Value Reference Range Interpretation Comments Monocytes (%) (Auto) (test code = 5905-5) 4.1 4.4-11.3 L [facility] HospitalEosinophils (%) (Auto)2019-04-16 05:44:00 * Test Item Value Reference Range Interpretation Comments Eosinophils (%) (Auto) (test code = 713-8) 0.0 0.0-6.0 [facility] HospitalBasophils (%) (Auto)2019-04-16 05:44:00* Test Item Value Reference Range Interpretation Comments Basophils (%) (Auto) (test code = 706-2) 0.1 0.0-1.0 [facility] HospitalIM GRANULOCYTES %2019-04-16 05:44:00* Test Item Value Reference Range Interpretation Comments IM GRANULOCYTES % (test code = IM GRANULOCYTES %) 1.1 0.0- 1.0 H [facility] HospitalNeutrophils # (Auto)2019-04-16 05:44:00* Test Item Value Reference Range Interpretation Comments Neutrophils # (Auto) (test code = 751-8) 9.8 2.1-6.9 H [facility] HospitalLymphocytes # (Auto)2019-04-16 05:44:00* Test Item Value Reference Range Interpretation Comments Lymphocytes # (Auto) (test code = 15185-5) 0.5 1.0-3.2 L [facility] HospitalMonocytes # (Auto)2019-04-16 05:44:00* Test Item Value Reference Range Interpretation Comments Monocytes # (Auto) (test code = 742-7) 0.5 0.2-0.8 [facility] HospitalEosinophils # (Auto)2019-04-16 05:44:00* Test Item Value Reference Range Interpretation Comments Eosinophils # (Auto) (test code = 711-2) 0.0 0.0-0.4 [facility] HospitalBasophils # (Auto)2019-04-16 05:44:00* Test Item Value Reference Range Interpretation Comments Basophils # (Auto) (test code = 704-7) 0.0 0.0-0.1 [facility] HospitalAbsolute Immature Granulocyte (auto 2019-04-16 05:44:00* Test Item Value Reference Range Interpretation Comments Absolute Immature Granulocyte (auto (obdulio t code = Absolute Immature Granulocyte (auto) 0.12 0-0.1 H [facility] HospitalBedside Ofhcvxi7483-24-91 20:17:00* Test Item Value Reference Range Interpretation Comments Bedside Glucose (test code = 25184-5) 250 70-120 H Meter ID: [id number] [facility] TylerBlood Culture 2019-04-15 08:55:00* Test Item Value Reference Range Interpretation Comments Blood Culture (test code = 41991038) NO GROWTH AFTER 24 HOURS [facility] HospitalCT ABDOMEN/PELVIS T5722-19-10 09:57:00 [place] [address] Patient Name: OZ PRIETO MR #: [id number] : Age/Sex: 59/M Req #: [id number] Adm Physician: Ordered by: MICHELLE KWONG IMPRESS ASSOCIATE Report #: [id number] Location: ER Room/Bed: Procedure: 716 CT/CT ABDOMEN/PELVIS [...] COPY TO: MICHELLE KWONG NP Creatine Kinase KD2906-62-89 08:37:00* Test Item Value Reference Range Interpretation Comments Creatine Kinase MB (test code = 95732-7) 2.00 0-5.0 [facility] HospitalTroponin H7508-52-29 08:37:00* Test Item Value Reference Range Interpretation Comments Troponin I (test code = FZX5074) 0.020 0-0.300 [facility] HospitalUrine NYD6456-33-53 08:35:00* Test Item Value Reference Range Interpretation Comments Urine WBC (test code = 5821-4) 0-5 0-5 [facility] HospitalUrine GER2013-99-43 08:35:00* Test Item Value Reference Range Interpretation Comments Urine RBC (test code = 02094-5) NONE 0-5 [facility] HospitalUrine Dzxjyxfr6011-88-21 08:35:00* Test Item Value Reference Range Interpretation Comments Urine Bacteria (test code = 61475-4) MODERATE NONE H [facility] HospitalUrine Epithelial Ikegq6447-48-17 08:35:00 * Test Item Value Reference Range Interpretation Comments Urine Epithelial Cells (test code = 57798-0) RARE NONE [facility] HospitalCreatine Ahaggp5403-48-43 08:31:00* Test Item Value Reference Range Interpretation Comments Creatine Kinase (test code = 2157-6) 157 30-200 [facility] HospitalAmylase Bfdnv3209-96-17 08:31:00* Test Item Value Reference Range Interpretation Comments Amylase Level (test code = 1798-8) 58 25-125 [facility] HospitalLipase2019-07-17 08:31:00* Test Item Value Reference Range Interpretation Comments Lipase (test code = 3040-3) 25 8-78 [facility] HospitalUrine Fmmix7722-56-97 08:21:00* Test Item Value Reference Range Interpretation Comments Urine Color (test code = 5778-6) YELLOW YELLOW [facility] HospitalUrine Itpdwby6662-64-10 08:21:00* Test Item Value Reference Range Interpretation Comments Urine Clarity (test code = 61766-8) CLEAR CLEAR [facility] HospitalUrine Specific Mtobpoh1324-06-98 08:21:00 * Test Item Value Reference Range Interpretation Comments Urine Specific [place] (test code = 5811-5) 1.025 1.010-1.02 5 [facility] HospitalUrine jO2406-16-25 08:21:00* Test Item Value Reference Range Interpretation Comments Urine pH (test code = 57070-4) 6 5-7 [facility] HospitalUrine Leukocyte Azmwkceb0793-41-17 08:21:00* Test Item Value Reference Range Interpretation Comments Urine Leukocyte Esterase (test code = 90427-9) NEGATIVE NEGATIV E [facility] HospitalUrine Yhmlyud3662-85-21 08:21:00* Test Item Value Reference Range Interpretation Comments Urine Nitrite (test code = 60409-5) NEGATIVE NEGATIVE [facility] HospitalUrine Wopptlc6474-68-82 08:21:00* Test Item Value Reference Range Interpretation Comments Urine Protein (test code = 94066-9) TRACE NEGATIVE H [facility] HospitalUrine Glucose (UA)2019-04-14 08:21:00* Test Item Value Reference Range Interpretation Comments Urine Glucose (UA) (test code = 74748-7) 3+ NEGATIVE [facility] HospitalUrine Uylffzs6676-95-23 08:21:00* Test Item Value Reference Range Interpretation Comments Urine Ketones (test code = 78166-8) 1+ NEGATIVE H [facility] HospitalUrine Qzjxgwgduvqa0998-96-80 08:21:00* Test Item Value Reference Range Interpretation Comments Urine Urobilinogen (test code = 62716-1) 1 0.2-1 [facility] HospitalUrine Slfwipogn1802-32-97 08:21:00* Test Item Value Reference Range Interpretation Comments Urine Bilirubin (test code = 1977-8) SMALL NEGATIVE [facility] HospitalUrine Wltmp9509-86-69 08:21:00* Test Item Value Reference Range Interpretation Comments Urine Blood (test code = 67221-5) NEGATIVE NEGATIVE [facility] HospitalTotal Bgsdjygzo7029-10-04 08:11:00* Test Item Value Reference Range Interpretation Comments Total Bilirubin (test code = 1975-2) 0.8 0.2-1.2 [facility] HospitalAspartate Amino Transf (AST/SGOT) 2019-04-14 08:11:00* Test Item Value Reference Range Interpretation Comments Aspartate Amino Transf (AST/SGOT) (test code = Aspartate Amino Transf (AST/SGOT)) 30 5-34 [facility] HospitalAlanine Aminotransferase (ALT/SGPT) 2019-04-14 08:11:00* Test Item Value Reference Range Interpretation Comments Alanine Aminotransferase (ALT/SGPT) (test code = 1742-6) 22 0-55 [facility] HospitalTotal Dvzrqtj3134-96-37 08:11:00* Test Item Value Reference Range Interpretation Comments Total Protein (test code = 2885-2) 7.6 6.5-8.1 [facility] HospitalAlbumin2019-07-17 08:11:00* Test Item Value Reference Range Interpretation Comments Albumin (test code = 1751-7) 2.7 3.5-5.0 L [facility] HospitalGlobulin2019-07-17 08:11:00* Test Item Value Reference Range Interpretation Comments Globulin (test code = 90547-2) 4.9 2.3-3.5 H [facility] HospitalAlbumin/Globulin Xhhve5537-60-80 08:11:00 * Test Item Value Reference Range Interpretation Comments Albumin/Globulin Ratio (test code = 1759-0) 0.6 0.8-2.0 L [facility] HospitalAlkaline Nroiqeqkvpq5618-59-78 08:11:00* Test Item Value Reference Range Interpretation Comments Alkaline Phosphatase (test code = 6768-6) 62 40-150 [facility] Tyler[facility]2019-04-14 07:58:00 [facility] [address] [place] [address] Patient Name: OZ PRIETO MR #: [id number] : 1960 Age/Sex: 59/M Req #: [id number] Adm Physician: Ordered by: MICHELLE KWONG IMPRESS ASSOCIATE Report #: [id number] Location: ER Room/Bed: Procedure: 0717 -0010 DX/CHEST SINGLE (PORTABLE) Exam Date: 04/14/19 Exam Time: 732 REPORT STATUS: Sig kiel EXAM: CHEST SINGLE (PORTABLE) DATE: 04/14/2019 7:05 AM INDICA TION: Cough, shortness of breath ERMD ORDER [id number] Y COMPARISON: None FINDINGS: Lines and [...] MARIA on 799 COPY TO: MICHELLE KWONG IMPRESS ASSOCIATE Prothrombin Hjgq7522-56-83 07:47:00* Test Item Value Reference Range Interpretation Comments Prothrombin Time (test code = 5902-2) 14.2 11.9-14.5 [facility] HospitalProthromb Time International Ratio 2019-04-14 07:47:00* Test Item Value Reference Range Interpretation Comments Prothromb Time International Ratio (test code = 6301-6) 1.05 Oral Anticoagulant Therapy INR Values:1. Low Intensity Therapy 1.5 - 2.02 . Moderate Intensity Therapy 2.0 - 3.03. High Intensity Therapy(1) 2.5 - 3. 54. High Intensity Therapy(2) 3.0 - 4.05. Panic Value INR > 5.0 [facility] HospitalActivated Partial Thromboplast Time 2019-04-14 07:47:00* Test Item Value Reference Range Interpretation Comments Activated Partial Thromboplast Time (test code = 23357-6) 33.9 23.8-35.5 [facility]
== END 2020-03-16 14:13 | disposition home or self-care (01) | DRG 871 ==
LOC: ER 08:20 → ERHOLD 11:01 → MED/SURG3 16:33
PROVIDERS: ADMIT Internal Medicine; ATTEND Internal Medicine
DX: A41.9 Sepsis, unspecified organism (principal); J96.00 Acute respiratory failure, unspecified whether with hypoxia or hypercapnia; N39.0 Urinary tract infection, site not specified; N17.9 Acute kidney failure, unspecified; J44.1 Chronic obstructive pulmonary disease with (acute) exacerbation; J41.1 Mucopurulent chronic bronchitis; E11.9 Type 2 diabetes mellitus without complications; I10 Essential (primary) hypertension; E78.5 Hyperlipidemia, unspecified; R65.20 Severe sepsis without septic shock; Z11.59 Encounter for screening for other viral diseases; Z86.73 Personal history of transient ischemic attack (TIA), and cerebral infarction without residual deficits; Z80.9 Family history of malignant neoplasm, unspecified; Z80.7 Family history of other malignant neoplasms of lymphoid, hematopoietic and related tissues; Z87.891 Personal history of nicotine dependence; Z79.84 Long term (current) use of oral hypoglycemic drugs; E83.41 Hypermagnesemia; E66.9 Obesity, unspecified; Z68.30 Body mass index [BMI] 30.0-30.9, adult; N18.9 Chronic kidney disease, unspecified; E86.0 Dehydration; E87.5 Hyperkalemia; B96.1 Klebsiella pneumoniae [K. pneumoniae] as the cause of diseases classified elsewhere
CPT/HCPCS: 36415; 36600; 71045; 71046; 76770; 80053; 80061; 81001; 82550; 82553; 82805; 82948; 83036; 83605; 83735; 84100; 84443; 84484; 85025; 87040; 87086; 87186; 93005; 93306; 99284; J0456; J0692; J0696; J1817; J1940; J2920; J2930; J3370; J7030; J7050; U0002